=== PATIENT | male | born 1970 | race Caucasian/White ===

== ENCOUNTER → 2017-04-19 11:32 | Outpatient (CLI) | payer BC, SELFPAY ==
[2017-04-19 15:46] LABS: Absolute Lymphocyte Count 2.45 X10^3/ul (0.83-4.51); Absolute Neutrophil Count 5.6 X10^3/uL (2.0-7.7); Basophil# 0.04 X10^3/uL; Basophil% 0.5 % (0-1); Eosinophil# 0.09 X10^3/uL; Lymphocyte # 2.45 X10^3/ul (4.0); Lymphocyte % 27.9 % (19-41); Mean Corp Hgb Conc 34.1 g/gl (32-36); Mean Corpuscular Hgb 30.7 pg (27.0-32.0); Mean Platelet Vol. 10.9 fl (6.2-12.0); Monocyte# 0.54 X10^3/uL; Monocyte% 6.2 % (0-10); Neutrophil # 5.63 X10^3/uL (2.7-7.7); Neutrophil % 64.1 % (47-70); POSITIVE COUNT NO; POSITIVE DIFFERENTIAL NO; POSITIVE MORPHOLOGY NO; Platelet Count 252 K/mm3 (150-450); RBC Distribution Width CV 13.1 % (11.6-14.6); RBC Distribution Width SD 42.6 fl (35.1-43.9); Red Blood Count 4.89 M/mm3 (4.6-6.2); White Blood Count 8.8 K/mm3 (4.4-11.0)
[2017-04-19 16:12] LABS: Hemoglobin A1c 5.5 % (4.2-6.3)
[2017-04-19 16:13] LABS: BUN 14 mg/dL (7-18); Glucose 99 mg/dL (70-110)
[2017-04-19 16:14] LABS: ALB/GLOB Ratio 1.1 RATIO (0.9-2.4); AST(SGOT) 17 U/L (15-37); Alanine Aminotransfer ALT/SGPT 36 U/L (16-61); Albumin, Serum 3.7 g/dL (3.2-5.0); Alkaline Phosphatase 90 U/L (45-117); Anion Gap 10 (5-15); BUN/Creat Ratio 19.9 RATIO (10-20); Calcium,Total 8.5 mg/dL (8.5-10.1); Chloride 105 mmol/L (98-107); Cholesterol 172 mg/dL (200); EST Glomerular Filtration Rate 127 mL/min (>60); Est Glom Filt Rate - Afr Amer 154 mL/min (>60); Globulin 3.4 g/dL (2.2-4.2); High Density Lipoprotein 46 mg/dL; Protein, Total 7.1 g/dL (6.4-8.2); Sodium Level 139 mmol/L (136-145); Thyroid Stim Hormone (TSH) 0.76 uIU/mL (0.358-3.74); Triglycerides 76 mg/dL; Very Low Density Lipoprotein 15 mg/dL (5-40)
== END ==
PROVIDERS: Family Provider Family Medicine; PCP Family Medicine; Visit Provider Family Medicine
DX: Z80.51 Family history of malignant neoplasm of kidney (principal)
CPT/HCPCS: 36415; 80053; 80061; 83036; 84443; 85025

== ENCOUNTER 2017-08-14 13:11 | Emergency (ER) | payer BC, SELFPAY ==
[2017-08-14 13:14] VITALS: BP 134/76; PULSE 76; RESP 20; TEMP 36.9; O2SAT 98; BMI 40.6
--- NOTE | 2017-08-14 13:21 | EKG12_ITS ---
Test Reason : REPEAT Blood Pressure : / mmHG Vent. Rate : 061 BPM Atrial Rate : 061 BPM P-R Int : 154 ms QRS Dur : 104 ms QT Int : 438 ms P-R-T Axes : 034 -40 -02 degrees QTc Int : 440 ms Normal sinus rhythm Left axis deviation Abnormal ECG Confirmed by LOPEZ GOMEZ ([id number]), multimedia editor SEE FRIEDMAN ([id number]) on 08/27/2017 5:58:34 PM Referred By: KELSEY Confirmed By:LOPEZ GOMEZ
--- NOTE | 2017-08-14 13:21 | RAD_ITS ---
STUDY: X-RAY CHEST REASON FOR EXAM: Male, 46 years old. Chest pain. TECHNIQUE: Single AP portable view of the chest. COMPARISON: None. FINDINGS: EKG electrodes are seen. The lungs are clear and expanded. There is no demonstrated pleural abnormality. Normal size heart. Normal mediastinum and osvaldo. Normal visualized pulmonary arteries. Normal visualized aortic arch and descending thoracic aorta. Normal visualized thoracic spine. Normal visualized ribs, clavicles, and shoulders. There is no demonstrated abnormality of the visualized soft tissue structures of the upper abdomen. RAD/Chest 1 View (Portable) IMPRESSION: Normal x-ray examination of the chest. Electronically Signed: Bharat Mcbride MD at 14:26 EDT Tel [phone], Service support ,
[2017-08-14 13:36] LABS: Absolute Lymphocyte Count 2.88 X10^3/ul (0.83-4.51); Absolute Neutrophil Count 11.2 X10^3/uL (2.0-7.7); Basophil# 0.05 X10^3/uL; Basophil% 0.3 % (0-1); Eosinophil# 0.06 X10^3/uL; Eosinophils% 0.4 % (0-5); Hematocrit 41.4 % (40-54); Hemoglobin 14.2 g/dl (13.0-16.5); Lymphocyte # 2.88 X10^3/ul (4.0); Lymphocyte % 19.6 % (19-41); Mean Corp Hgb Conc 34.3 g/gl (32-36); Mean Corpuscular Hgb 30.3 pg (27.0-32.0); Mean Corpuscular Volume 88.5 fL (80-94); Mean Platelet Vol. 10.1 fl (6.2-12.0); Monocyte# 0.46 X10^3/uL; Monocyte% 3.1 % (0-10); Neutrophil # 11.23 X10^3/uL (2.7-7.7); Neutrophil % 76.3 % (47-70); Platelet Count 237 K/mm3 (150-450); RBC Distribution Width CV 13.1 % (11.6-14.6); RBC Distribution Width SD 41.9 fl (35.1-43.9); Red Blood Count 4.68 M/mm3 (4.6-6.2); White Blood Count 14.7 K/mm3 (4.4-11.0)
[2017-08-14 13:37] LABS: POSITIVE COUNT NO; POSITIVE DIFFERENTIAL NO; POSITIVE MORPHOLOGY NO
[2017-08-14 13:53] LABS: Anion Gap 9 (5-15); BUN 14 mg/dL (7-18); BUN/Creat Ratio 16.4 RATIO (10-20); Calcium,Total 8.2 mg/dL (8.5-10.1); Chloride 107 mmol/L (98-107); Creatinine, Serum 0.85 mg/dL (0.70-1.30); EST Glomerular Filtration Rate 102 mL/min (>60); Est Glom Filt Rate - Afr Amer 123 mL/min (>60); Estimated Creatinine Clearance 106.28 ml/min; Glucose 146 mg/dL (74-106); Potassium 3.5 mmol/L (3.5-5.1); Sodium Level 140 mmol/L (136-145)
[2017-08-14 14:27] VITALS: BP 121/84; PULSE 84; RESP 18; O2SAT 95
[2017-08-14] MEDS: Ondansetron 4 MG/2 ML Vial IV (14:39)
[2017-08-14] MEDS: 0.9% Normal Saline 1,000 ML 150 ML IV (14:39)
[2017-08-14] MEDS: Morphine 4 MG/ML Syringe IV (14:39)
[2017-08-14 14:51] LABS: Bedside Glucose 96 mg/dL (70-110)
[2017-08-14 15:09] VITALS: BP 125/80; PULSE 66; RESP 18; O2SAT 95
--- NOTE | 2017-08-14 15:55 | ED.DCSUM_ITS ---
- ER Visit Summary Date of Service: 08/14/17 Chief Complaint: Chest pain History of Present Illness: The patient is a 46 M who states he became very upset and angry this morning around 10 AM. He developed intermittent chest aching times several minutes. He denies any chest pain currently. He is complaining of a throbbing headache. Past history significant for hypertension. Patient has states he has undergone stress test in the past without difficulty. He has had no recent change in activity tolerance. Physical Examination: Vital signs are unremarkable. Patient sitting upright in bed no acute distress. Head and neck examination is normal. Heart is regular rate and rhythm. Lung sounds are clear. No chest wall tenderness is noted. Abdomen is soft nontender. Lower extremity examination reveals no significant calf tenderness or edema. Test Results: Portable chest x-ray is unremarkable. EKG is sinus at 79 with no sign of acute ischemia. CBC was a white count of 14.7 with normal differential. Chemistry studies are unremarkable. Troponin is less than 0.015. Emergency Department Course and Treatment: Patient had already taken aspirin. He was given morphine, Zofran, and IV fluids. I did repeat troponin and EKG at 3 hours. Repeat EKG continues to show no sign of acute ischemia. Repeat troponin is less than 0.015. Patient clinically states he feels improved. He will be discharged home with his . Treatment Plan: [] Disposition: Discharge Impression: Atypical chest pain This note was generated with [employer] dictation software. It may contain incorrect words, spelling, and punctuation that were not noted in review of the chart prior to signing ED Disposition - Plan for ED Patient: Chief Complaint: Chest Pain Referrals: Rivera Forbes DO [Primary Care Provider] -
--- NOTE | 2017-08-14 16:00 | EKG12_ITS ---
Test Reason : CP Blood Pressure : / mmHG Vent. Rate : 079 BPM Atrial Rate : 079 BPM P-R Int : 148 ms QRS Dur : 104 ms QT Int : 390 ms P-R-T Axes : 040 -29 -09 degrees QTc Int : 447 ms Normal sinus rhythm Normal ECG Confirmed by LOPEZ GOMEZ ([id number]), editorial specialist SEE FRIEDMAN ([id number]) on 08/27/2017 5:59:01 PM Referred By: KELSEY/DISHA Confirmed By:LOPEZ GOMEZ
[2017-08-14 16:30] VITALS: BP 131/81; PULSE 88; RESP 16; O2SAT 95
--- NOTE | 2017-08-14 16:49 | ED.DEP ---
ED Disposition - Plan for ED Patient: Disposition: Home or Assisted Living Chief Complaint: Chest Pain Instructions: ED Chest Pain NonCardiac Referrals: Rivera Forbes DO [Primary Care Provider] - 1-2 Weeks
[2017-08-14 17:01] VITALS: BP 141/97; PULSE 83; RESP 16; O2SAT 98
== END 2017-08-14 18:09 | disposition home or self-care (01) ==
PROVIDERS: Emergency Provider Emergency Medicine; Family Provider Family Medicine; PCP Family Medicine
DX: R07.89 Other chest pain (principal); I10 Essential (primary) hypertension; Z87.442 Personal history of urinary calculi; Z72.0 Tobacco use; Z79.82 Long term (current) use of aspirin; Z79.899 Other long term (current) drug therapy
CPT/HCPCS: 71045; 80048; 82962; 84484; 85025; 93005; 96361; 96374; 96375; 99284; J7030; A4216; J2405

== ENCOUNTER → 2017-09-27 09:17 | Outpatient (CLI) | payer BC, SELFPAY ==
[2017-09-27 12:20] LABS: Absolute Lymphocyte Count 2.88 X10^3/ul (0.83-4.51); Absolute Neutrophil Count 6.7 X10^3/uL (2.0-7.7); Basophil# 0.05 X10^3/uL; Basophil% 0.5 % (0-1); Eosinophil# 0.16 X10^3/uL; Eosinophils% 1.5 % (0-5); Hematocrit 43.8 % (40-54); Hemoglobin 14.7 g/dl (13.0-16.5); Lymphocyte # 2.88 X10^3/ul (4.0); Lymphocyte % 27.3 % (19-41); Mean Corp Hgb Conc 33.6 g/gl (32-36); Mean Corpuscular Hgb 30.3 pg (27.0-32.0); Mean Corpuscular Volume 90.3 fL (80-94); Mean Platelet Vol. 10.7 fl (6.2-12.0); Monocyte# 0.72 X10^3/uL; Monocyte% 6.8 % (0-10); Neutrophil # 6.72 X10^3/uL (2.7-7.7); Neutrophil % 63.6 % (47-70); Platelet Count 274 K/mm3 (150-450); RBC Distribution Width CV 13.4 % (11.6-14.6); Red Blood Count 4.85 M/mm3 (4.6-6.2); White Blood Count 10.6 K/mm3 (4.4-11.0)
[2017-09-27 12:29] LABS: POSITIVE COUNT NO; POSITIVE DIFFERENTIAL NO; POSITIVE MORPHOLOGY NO
[2017-09-27 12:35] LABS: CRP 4.66 mg/L (0.0-3.0)
== END ==
PROVIDERS: Family Provider Family Medicine; PCP Family Medicine; Visit Provider Family Medicine
DX: R59.0 Localized enlarged lymph nodes (principal)
CPT/HCPCS: 36415; 85025; 86140

== ENCOUNTER → 2017-11-07 09:43 | Outpatient (CLI) | payer BC, SELFPAY | PROVIDERS: Family Provider Family Medicine; PCP Family Medicine; Visit Provider Family Medicine | DX: R59.0 Localized enlarged lymph nodes (principal); R22.1 Localized swelling, mass and lump, neck | CPT/HCPCS: 76536 ==

== ENCOUNTER → 2018-01-30 08:55 | Outpatient (CLI) | payer BC, SELFPAY ==
--- NOTE | 2018-01-30 09:00 | BI_ITS ---
MAMMOGRAPHY - BILATERAL DIAGNOSTIC REASON FOR EXAM: Male, 47 years old. Left lateral breast swelling. PERTINENT HISTORY: Personal history of breast cancer. TECHNIQUE: Digital bilateral breast justyn (3D mammographic acquisition) in the CC and MLO projections. 2-D mediolateral oblique (MLO) and craniocaudad (CC) views of both breasts were obtained. CAD: Full Field Digital Mammography with Computer Added Detection was performed. COMPARISON: None. Baseline examination. FINDINGS: Breast Composition: The breasts are almost entirely fatty. There are no dominant masses or suspicious calcifications. The left breast is larger than the right breast. Small benign-appearing bilateral axillary lymph nodes. No other significant abnormalities are identified. BI/DIAG MAMM W/CAD, BILAT IMPRESSION: Negative diagnostic mammogram. With the patient's history of the lateral left breast swelling, correlation with ultrasound is recommended. ASSESSMENT CATEGORY: BIRADS Category 0: Incomplete. Need additional imaging evaluation. A letter regarding these results will be sent to the patient by the facility within 30 days. Approximately 10% of breast cancers are not detected by mammography. A normal mammogram should not delay biopsy of a clinically suspicious abnormality. Electronically Signed: Bharat Mcbride MD at 10:22 EST Tel [phone], Service support ,
--- NOTE | 2018-01-30 09:00 | US_ITS ---
STUDY: ULTRASOUND BREAST - LEFT REASON FOR EXAM: Male, 47 years old. Palpable lump left breast. TECHNIQUE: Axial and longitudinal images of the LEFT breast were performed with a high resolution ultrasound transducer. COMPARISON: Comparison is made with prior mammogram done earlier today. FINDINGS: LEFT Breast: No solid or cystic mass lesion is seen. Incidental note is made of a 7 mm x 7 mm x 2 mm benign appearing lymph node. US/Breast Limited Unilateral IMPRESSION: No mass lesion is seen. Incidental note is made of a 7 mm x 7 mm x 2 mm lymph node. ASSESSMENT CATEGORY: BIRADS Category 2: Benign. A letter regarding these results will be sent to the patient by the facility within 30 days. Electronically Signed: Bharat Mcbride MD at 10:58 EST Tel [phone], Service support ,
== END ==
PROVIDERS: Family Provider Family Medicine; PCP Family Medicine; Referring Provider Family Medicine; Visit Provider Family Medicine
DX: N63.20 Unspecified lump in the left breast, unspecified quadrant (principal)
CPT/HCPCS: 76642; 77062; 77066; G0279

== ENCOUNTER 2018-12-02 17:23 | Observation (INO) | payer BC, SELFPAY ==
[2018-12-02 17:26] VITALS: BP 132/88; PULSE 91; RESP 16; TEMP 36.2; O2SAT 97; BMI 44.7
--- NOTE | 2018-12-02 18:01 | EKG12_ITS ---
Test Reason : CP Blood Pressure : / mmHG Vent. Rate : 072 BPM Atrial Rate : 072 BPM P-R Int : 156 ms QRS Dur : 092 ms QT Int : 398 ms P-R-T Axes : 038 -43 021 degrees QTc Int : 435 ms Normal sinus rhythm Left axis deviation Poor R- Wave Progression Abnormal ECG Confirmed by ZAK RAMÍREZ, NAVID ([id number]), editorial manager AMERICA FRAZIER ([id number]) on 12/04/2018 2:04:36 PM Referred By: FRANCIS/DISHA Confirmed By:NAVID CRESPO MD
--- NOTE | 2018-12-02 18:17 | RAD_ITS ---
STUDY: X-RAY CHEST REASON FOR EXAM: Male, 48 years old. Chest pain TECHNIQUE: Single AP portable view of the chest. COMPARISON: 08/14/2017 FINDINGS: The lungs are clear and expanded. There is no demonstrated pleural abnormality. Normal size heart. Normal mediastinum and osvaldo. Normal visualized pulmonary arteries. Normal visualized aortic arch and descending thoracic aorta. Normal visualized thoracic spine. Normal visualized ribs, clavicles, and shoulders. There is no demonstrated abnormality of the visualized soft tissue structures of the upper abdomen. RAD/Chest 1 View (Portable) IMPRESSION: Normal x-ray examination of the chest. Electronically Signed: Reji Noel MD at 18:26 EDT Tel , Service support ,
[2018-12-02 18:48] LABS: Absolute Lymphocyte Count 3.72 X10^3/uL (0.83-4.51); Absolute Neutrophil Count 10.3 X10^3/uL (2.0-7.7); Basophil# 0.09 X10^3/uL; Basophil% 0.6 % (0-1); Eosinophil# 0.14 X10^3/uL; Eosinophils% 0.9 % (0-5); Hematocrit 44.7 % (40-54); Hemoglobin 15.3 g/dL (13.0-16.5); Lymphocyte # 3.72 X10^3/ul (4.0); Lymphocyte % 24.5 % (19-41); Mean Corp Hgb Conc 34.2 g/dL (32-36); Mean Corpuscular Hgb 30.5 pg (27.0-32.0); Mean Corpuscular Volume 89.2 fL (80-94); Monocyte# 0.79 X10^3/uL; Monocyte% 5.2 % (0-10); NRBC Flagged by Analyzer 0 % (0-5); Neutrophil # 10.32 X10^3/uL (2.7-7.7); Platelet Count 296 K/mm3 (150-450); RBC Distribution Width CV 12.4 % (11.6-14.6); RBC Distribution Width SD 40.5 fl (35.1-43.9); Red Blood Count 5.01 M/mm3 (4.6-6.2); White Blood Count 15.2 K/mm3 (4.4-11.0)
[2018-12-02 19:04] LABS: Anion Gap 6 (5-15); BUN 13 mg/dL (7-18); BUN/Creat Ratio 15.8 RATIO (10-20); Calcium,Total 8.7 mg/dL (8.5-10.1); Chloride 106 mmol/L (98-107); Creatinine, Serum 0.82 mg/dL (0.70-1.30); EST Glomerular Filtration Rate 105 mL/min (>60); Est Glom Filt Rate - Afr Amer 127 mL/min (>60); Estimated Creatinine Clearance 107.77 ml/min; Glucose 93 mg/dL (74-106); Potassium 3.7 mmol/L (3.5-5.1); Sodium Level 138 mmol/L (136-145)
[2018-12-02 19:42] VITALS: O2SAT 98
--- NOTE | 2018-12-02 19:44 | ED.DCSUM_ITS ---
History of Present Illness Chief Complaint: Chest Pain Informant: Patient Onset: Days - Several days. Onset November 27 Context: Sudden Onset Timing: Intermittent Quality: Pushing pulling pressure Location: Midsternum with radiation to left upper extremity Current Severity: - - Tammy Maximum Severity: Moderate Worsened by: Exertion Relieved by: Rest Associated Symptoms: Possibly diaphoresis and mild shortness of breath Narrative: Vision is a middle-age male who is a former smoker. He quit May of this year. He has history of hypertension. Paternal grandparents both had strokes. His father has high blood pressure. No known history of ID. He does report symptoms of claudication he reports that sitting in the waiting room caused him to be relaxed and his tightness went away. He denies hematemesis, hematochezia. He denies any URI symptoms. Prior similar symptoms: No Recent Illness/Hospitalization: No - Past Medical History (1) History of hypertension Status: Acute Past Medical History - Allergies and Home Meds Allergies/Adverse Reactions: Allergies No Known Allergies Allergy (Verified 12/02/18 17:26) Primary Care Physician: Rivera Forbes DO [Primary Care Provider] - Prior records reviewed: Yes Surgical History: no surgical history Lives: Spouse/ Significant Other Smoking Status: Former smoker Alcohol: None Drugs: None Review of Systems General: Denies: Chills, Fever, Sweats Eyes: Denies: Visual changes - bilaterally, Diplopia ENT: Denies: Rhinorrhea, Sore throat Cardiovascular: Reports: Chest pain. Denies: Palpitations, Heart racing Respiratory: Reports: Dyspnea. Denies: Dyspnea on exertion, Orthopnea, Paroxysmal nocturnal dyspnea Gastrointestinal: Denies: Abdominal pain, Nausea, Vomiting, Diarrhea, Melena, Hematochezia Genitourinary: Denies: Dysuria, Hematuria, Frequency Musculoskeletal: Reports: Extremity Pain - Symptoms of claudication. Denies: Myalgias, Arthralgias, Neck pain, Back pain, Swelling Skin: Denies: Rash, Wounds Neurological: Denies: Headache, Weakness, Numbness Allergy: Denies: Uticaria, Swelling of the mouth Physical Exam Vital Signs/Narrative: Vital Signs Temp Pulse Resp BP Pulse Ox 12/02/18 19:42 98 12/02/18 17:26 97.1 F L 91 16 132/88 H 97 Inital Vital Signs reviewed: Yes General: Well nourished, Well developed, No Acute Distress Head: Normocephalic, Atraumatic Eyes: Perrl, EOMI ENT: Moist mucous membranes, No rhinorrhea Neck: Supple, Nontender Cardiovascular: Regular rate, Regular rhythm, No murmurs, Normal S1, Normal S2 Respiratory: No distress, CTA bilaterally, Chest nontender Abdomen: Soft, Nontender, Nondistended, Normal bowel sounds Back: Nontender, Normal Inspection Extremities: Nontender, No edema Skin: Normal color, No rash Neurological: Alert, Oriented x3, Cranial nerves II-XII grossly intact, Normal Strength, Normal Sensation Psychological: Normal affect, Normal Mood Diagnostic/Tx/Re-eval Chest X-Ray - ED: 1 View, Read by ED Physician, Read by Radiologist, Normal, Heart, Lungs, Mediastinum, Bony Structures, No Acute Disease Impressions Chest X-Ray 12/02/18 18:17 IMPRESSION: Normal x-ray examination of the chest. Electronically Signed: Reji Noel MD at 18:26 EDT Tel , Service support , 12/02/18 18:17 Chest 1 View (Portable) [RAD] Stat Laboratory Results 12/02/18 12/02/18 18:30 18:30 WBC 15.2 H RBC 5.01 Hgb 15.3 Hct 44.7 MCV 89.2 MCH 30.5 MCHC 34.2 RDW Std Deviation 40.5 RDW Coeff of Nitish 12.4 Plt Count 296 MPV 10.0 Immature Gran % (Auto) 0.800 Neut % (Auto) 68.0 Lymph % (Auto) 24.5 [place] % (Auto) 5.2 Eos % (Auto) 0.9 Baso % (Auto) 0.6 Absolute Neuts (auto) 10.3 H Absolute Lymphs (auto) 3.72 Nucleated RBC % 0 Sodium 138 Potassium 3.7 Chloride 106 Carbon Dioxide 26.0 Anion Gap 6 BUN 13 Creatinine 0.82 Estim Creat Clear Calc 107.77 Est GFR (MDRD) Af Amer 127 Est GFR (MDRD) Non-Af 105 BUN/Creatinine Ratio 15.8 Glucose 93 Calcium 8.7 Troponin I < 0.015 Laboratory results are unremarkable. Patient history of classic exertional angina. Executive Director Of Marketing was paged as well as hospitalist for observation and probable cardiac catheterization in the morning. - Medical Decision Making Patient presents with classic exertional angina. Concern for coronary disease. Need to also consider noncardiac etiology i.e. GI, pulmonary. Since patient to ok 1 baby aspirin prior to arrival he received 3 baby aspirins in the department. Since he is now pain-free with rest Nitropaste was applied. Executive Director Of Marketing was contacted to discuss anticoagulation and the hospitalist was paged for assignment to PCU. Discussed with hospitalist. Patient will receive dose of Lovenox. Dr. Sandor Melara to see patient. ED Disposition - Plan for ED Patient: Disposition: Acute Care Hospital [facility] Diagnosis: Chest pain, exertional Referrals: Rivera Forbes DO [Primary Care Provider] -
--- NOTE | 2018-12-02 19:52 | HP.PCM_ITS ---
Problem List (1) Chest pain, exertional Status: Acute (2) History of hypertension Status: Chronic (3) Chest pain Status: Acute Qualifiers: Chest pain type: unspecified Qualified Code(s): R07.9 - Chest pain, unspecified History of Present Illness Date of Admission: 12/02/18 Chief Complaint: chest pain The patient is a 48 year old M with a significant history of hypertension; morbid obesity; former tobacco abuse who presented with a one-week history of episodic chest pain. 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 Patient thinks that the chest pain might be due to his movement as above. His chest pain radiates to his back. His chest pain is episodic. He rated at 5-6 on a scale of 1-10. He describes chest pain as dull and aching. His chest pain is exacerbated by movement and improves with rest. Associated with symptoms is vertigo. Also he reports diaphoresis. However, he is always diaphoretic from his work. Past Medical History Past Medical History (Chronic Problems): Chronic Problems (Last Reviewed 12/02/18 @ 20:34 by Ko Hunter MD) History of hypertension (Chronic) Medical History: Medical History (Last Reviewed 12/03/18 @ 07:21 by Ko Hunter MD) Back pain M54.9 Chest pain R07.9 Difficulty balancing R29.818 Fatigue R53.83 Limb weakness R29.898 Shoulder pain M25.519 HTN (hypertension) I10 Allergies No Known Allergies Allergy (Verified 12/02/18 17:26) Home Medications: Ambulatory Orders Medication Instructions Recorded Lisinopril/Hydrochlorothiazide 1 tab PO DAILY 05/04/13 [Zestoretic 12.5 Tablet] Venlafaxine HCl [Venlafaxine HCl 75 mg PO DAILY 12/02/18 ER] aspirin 81 mg tablet,delayed 81 mg PO DAILY 12/02/18 release Surgical History: Surgical History (Last Reviewed 12/03/18 @ 04:01 by Ko Hunter MD) Hernia K46.9 History of gastric surgery Z98.890 History of tonsillectomy Z90.89 Lives: Spouse/ Significant Other Smoking Status: Former smoker Alcohol: None Drugs: None - *Family History Maternal Family History: Family History (Last Reviewed 12/03/18 @ 07:22 by Ko Hunter MD) Other CVA (cerebral vascular accident) Cancer Diabetes Heart disease Review of Systems Constitutional: Denies: Chills, Fever, Weight Change HEENT: Denies: Head Aches, Sinus Congestion, Sinus Drainage Cardiovascular: Reports: Chest Pain. Denies: Palpitations Respiratory: Denies: Cough, Shortness of breath at rest, Sputum production Gastrointestinal: Denies: Abdominal Pain, Nausea, Vomiting Genitourinary: Denies: Dysuria Musculoskeletal: Denies: Joint Pain, Joint Tenderness Skin: Denies: Rash, Wounds Neurological: Denies: Numbness, Tingling, Focal weakness Psychiatric: Denies: Anxiety, Depression, Homicidal Ideations, Suicidal Ideations Hematologic/ Lymphatic: Denies: Easy Bruising, Easy Bleeding VTE Information - Inpt Only VTE Present on Admission: No VTE Mechan Device Prophylaxis: None VTE Pharm Prophylaxis ordered?: No Reason prophylaxis not ordered:: Treatment Not Indicated - Patient received therapeutic dose of Lovenox at the emergency department. Patient Problems: Active and Suspected Problems (Last Reviewed 12/02/18 @ 20:34 by Ko Hunter MD) Chest pain, exertional (Acute) - Physical Exam General: Alert, Oriented x3, Cooperative HEENT: Atraumatic, PERRLA, EOMI, Normocephalic Neck: Supple, No JVD, Negative Carotid Bruits Lungs: Clear to auscultation, Normal air movement Cardiovascular: Regular rate, No murmurs Abdomen: Bowel Sounds Present, Soft, Non Tender Extremities: No edema, Capillary Refill Less than 3 Seconds Skin: No rashes, No breakdown Musculoskeletal: No Tenderness to Palpation of Joints or Extremities Neurological: Cranial nerves II-XII grossly intact Psych/Mental Status: Normal Affect, Appropriate Vital Signs Temp Pulse Resp BP Pulse Ox 97.1 F L 91 16 132/88 H 98 12/02/18 17:26 12/02/18 17:26 12/02/18 17:26 12/02/18 17:26 12/02/18 19:42 Oxygen Delivery Method Room Air Weight: 137.438 kg Body Mass Index (BMI) 44.7 Finger Stick Blood Glucose 96 Laboratory Tests Past 24 Hrs 12/02/18 12/02/18 18:30 18:30 WBC 15.2 H RBC 5.01 Hgb 15.3 Hct 44.7 MCV 89.2 MCH 30.5 MCHC 34.2 RDW Std Deviation 40.5 RDW Coeff of Nitish 12.4 Plt Count 296 MPV 10.0 Immature Gran % (Auto) 0.800 Neut % (Auto) 68.0 Lymph % (Auto) 24.5 [place] % (Auto) 5.2 Eos % (Auto) 0.9 Baso % (Auto) 0.6 Absolute Neuts (auto) 10.3 H Absolute Lymphs (auto) 3.72 Nucleated RBC % 0 Sodium 138 Potassium 3.7 Chloride 106 Carbon Dioxide 26.0 Anion Gap 6 BUN 13 Creatinine 0.82 Estim Creat Clear Calc 107.77 Est GFR (MDRD) Af Amer 127 Est GFR (MDRD) Non-Af 105 BUN/Creatinine Ratio 15.8 Glucose 93 Calcium 8.7 Troponin I < 0.015 Assessment/Plan All Active Problems (Last Reviewed 12/02/18 @ 20:34 by Ko Hunter MD) Chest pain, exertional (Acute) Chest pain (Acute) The patient is a 48 year old M with a significant history of hypertension; morbid obesity; former tobacco abuse who presented with a one-week history of episodic chest pain. Chest pain Admit to a monitored bed on PCU CXR independently reviewed confirms no acute cardiopulmonary process. EKG independently reviewed confirms axis deviation without any ST or T wave abnormalities. Patient took a baby aspirin at home and was also given 3 baby aspirin at the emergency department. Patient was given nitroglycerin paste in the emergency department. Sublingual nitroglycerin as needed Per load out worker recommendation therapeutic dose of Lovenox was given at the emergency department. Per cardiology's recommendation loading dose Plavix and a daily dose Plavix was ordered. Continue ASA 81 mg p.o. daily Morphine as needed for pain We will check lipid panel. Serial cardiac enzymes Stat EKG as needed for chest pain Cardiac was consulted. Discussed the case with cardiology. Patient may have a heart cath in a.m. Hypertension On presentation his blood pressure was not within goal Lisinopril and hydrochlorthiazide continued Trend blood pressure and adjust blood pressure medication DVT prophylaxis Not indicated since patient received therapeutic dose of Lovenox in the emergency department. Code Visit OBSV E&M: 92284 Initial observation care L3
[2018-12-02 19:55] VITALS: BP 124/88; PULSE 72
[2018-12-02] MEDS: Nitroglycerin Oint 1 INCH PACKET TRANSDERM. (19:55)
[2018-12-02] MEDS: Aspirin 81 MG TAB.CHEW 243 MG PO (19:55)
[2018-12-02] MEDS: Enoxaparin 120 MG/0.8 ML Syringe SC (20:10)
--- NOTE | 2018-12-02 20:10 | PCM.CONS.C ---
Reason for Consult Date of Consultation: 12/02/18 Reason for Consultation: Chest pain History of Present Illness: The patient is a 48 year old M with no previous cardiac history but a history of hypertension under treatment who says that over the last few days he has experienced chest discomfort described as a heaviness which appears with exertion and goes away with rest. He rested the whole weekend and was free of chest discomfort and today when he started exerting himself again at work he experienced this chest heaviness. It was associated with diaphoresis mild dizziness and mild nausea. He has had no kristyn syncopal episodes. He has had no palpitations. He has not had this discomfort in the past. He underwent stress testing over 8 years ago and no evidence of ischemia was noted. He presented to the emergency room today was given aspirin and nitroglycerin with improvement in the discomfort. Cardiology was called for evaluation. He was seen in the emergency room by me. [] Past Medical History Allergies/Adverse Reactions: Allergies No Known Allergies Allergy (Verified 12/02/18 17:26) Home Medications: Ambulatory Orders Medication Instructions Recorded Lisinopril/Hydrochlorothiazide 1 tab PO DAILY 05/04/13 [Zestoretic 10/12.5 Tablet] Venlafaxine HCl 75 mg PO DAILY 08/14/17 aspirin 81 mg tablet,delayed 81 mg PO DAILY 12/02/18 release Surgical History: no surgical history Lives: Spouse/ Significant Other Smoking Status: Former smoker Alcohol: None Drugs: None Review of Systems - Review of Systems General: Denies: Fever, Night Sweats, Fatigue HEENT: Denies: Vision Change Cardiovascular: Reports: Chest Discomfort with Exertion. Denies: Chest Discomfort, Shortness of Breath, Orthopnea, PND, Peripheral Edema, Palpitations, Lightheadedness, Dizziness, Near Syncope, Syncope Respiratory: Denies: Cough, Sputum Production, Hemoptysis Gastrointestinal: Denies: Hematemesis, Hematochezia, Melena Genitourinary: Denies: Dysuria, Hematuria Muscoloskeletal: Denies: Myalgias Skin: Denies: Rash Neurological: Denies: Dizziness Psychiatric: Denies: Anxiety Hematologic/ Lymphatic: Denies: Anemia Subjectve: Pleasant gentleman in no apparent distress Objective: Vital Signs Temp Pulse Resp BP Pulse Ox 97.1 F L 72 16 124/88 H 98 12/02/18 17:26 12/02/18 19:55 12/02/18 17:26 12/02/18 19:55 12/02/18 19:42 Oxygen Delivery Method Room Air Weight: 303 lb Body Mass Index (BMI) 44.7 Finger Stick Blood Glucose 96 General: Awake, Alert, Oriented x 3 HEENT: PERRL, EOMI, Sclera Non Icteric Neck: Supple, Good ROM, No Lymph Node Enlargement Lungs: Clear to auscultation Cardiovascular: Regular Rhythm, Normal S1, Normal S2, No Murmurs, No Rubs, No Gallops Vascular: No Carotid Bruits, Normal Femoral Pulses, Normal Radial Pulses, Normal Dorsalis Pedal Pulse, Normal Posterior Tibial Pulses Abdomen: Bowel Sounds Present, Soft, Non Tender, No HSM, No Organomegaly Extremities: No Cyanosis, No Clubbing, No edema Musculoskeletal: No Erythema Skin: No Rashes Lymphatic: No Lymph Node Enlargement Neurological: No Focal Motor or Sensory Deficit Psych/Mental Status: Appropriate 12/02/18 18:30: WBC 15.2 H, RBC 5.01, Hgb 15.3, Hct 44.7, MCV 89.2, MCH 30.5, MCHC 34.2, Plt Count 296, MPV 10.0, Immature Gran % (Auto) 0.800, Neut % (Auto) 68.0, Lymph % (Auto) 24.5, [place] % (Auto) 5.2, Eos % (Auto) 0.9, Baso % (Auto) 0.6, Absolute Neuts (auto) 10.3 H, Nucleated RBC % 0 12/02/18 18:30: Sodium 138, Potassium 3.7, Chloride 106, Carbon Dioxide 26.0, Anion Gap 6, BUN 13, Creatinine 0.82, Est GFR (MDRD) Af Amer 127, Est GFR (MDRD) Non-Af 105, BUN/Creatinine Ratio 15.8, Glucose 93, Calcium 8.7, Troponin I < 0.015 Rhythm: EKG: ECHO: Stress Test: Cardiac Cath: PCI: CT Surgery: Holter monitor: EPS: PPM: CXR: Chest CT Scan: Assessment/Plan 1. Chest pain. Patient presents with chest discomfort with symptoms suggestive of new onset angina. He does have risk factors of hypertension and obesity and previous tobacco use. I did discuss with him about triaging him to stress testing versus cardiac catheterization. He says that he has had a stress test in the past and does not want to undergo another one. We will therefore proceed with a cardiac catheterization. The risk benefits and alternatives have been explained to him he understands and agrees to proceed. Depending on the findings further recommendations will be made. He will be treated with aspirin Loaded with clopidogrel Lovenox x1 For cardiac catheterization in a.m. Above discussed with patient and hospitalist and both in agreement. Thank you for allowing me to participate in the care of your patient. Please don't hesitate to call if any issues arise
--- NOTE | 2018-12-02 20:33 | EKG12_ITS ---
Test Reason : AM Blood Pressure : / mmHG Vent. Rate : 055 BPM Atrial Rate : 055 BPM P-R Int : 172 ms QRS Dur : 102 ms QT Int : 452 ms P-R-T Axes : 042 -36 003 degrees QTc Int : 432 ms Sinus bradycardia Left axis deviation Poor R- wave Progression Abnormal ECG Confirmed by ZAK RAMÍREZ, NAVID ([id number]), editorial manager AMERICA FRAZIER ([id number]) on 12/04/2018 2:23:52 PM Referred By: Confirmed By:NAVID CRESPO MD
[2018-12-02 20:36] VITALS: BMI 44.1; BMI 44.7
[2018-12-02 20:44] VITALS: BP 130/73; PULSE 67; PULSE 69; RESP 14; TEMP 37.1; O2SAT 99
[2018-12-02] MEDS: Clopidogrel Bisulfate 300 MG Tablet PO (22:05)
[2018-12-02 23:09] VITALS: PULSE 69
[2018-12-03] VITALS (14 sets, daily range): BP systolic 99–128; BP diastolic 51–85; PULSE 58–93; RESP 14–16; TEMP 36.4–36.7; O2SAT 96–98
[2018-12-03] MEDS: Acetaminophen 325 MG Tablet 650 MG PO ×2 (03:04→09:51)
[2018-12-03 05:50] LABS: Absolute Lymphocyte Count 3.68 X10^3/uL (0.83-4.51); Absolute Neutrophil Count 7.7 X10^3/uL (2.0-7.7); Basophil# 0.08 X10^3/uL; Basophil% 0.6 % (0-1); Eosinophil# 0.17 X10^3/uL; Eosinophils% 1.3 % (0-5); Hematocrit 40.6 % (40-54); Hemoglobin 13.7 g/dL (13.0-16.5); Lymphocyte # 3.68 X10^3/ul (4.0); Lymphocyte % 29.2 % (19-41); Mean Corp Hgb Conc 33.7 g/dL (32-36); Mean Corpuscular Volume 88.8 fL (80-94); Mean Platelet Vol. 10.1 fl (6.2-12.0); Monocyte# 0.85 X10^3/uL; Monocyte% 6.7 % (0-10); NRBC Flagged by Analyzer 0 % (0-5); Neutrophil # 7.69 X10^3/uL (2.7-7.7); Neutrophil % 61.2 % (47-70); Platelet Count 262 K/mm3 (150-450); RBC Distribution Width CV 12.5 % (11.6-14.6); RBC Distribution Width SD 40.9 fl (35.1-43.9); Red Blood Count 4.57 M/mm3 (4.6-6.2); White Blood Count 12.6 K/mm3 (4.4-11.0)
--- NOTE | 2018-12-03 05:55 | EKG12_ITS ---
Test Reason : CP ADMIT Blood Pressure : / mmHG Vent. Rate : 068 BPM Atrial Rate : 068 BPM P-R Int : 160 ms QRS Dur : 098 ms QT Int : 410 ms P-R-T Axes : 044 -39 015 degrees QTc Int : 435 ms Normal sinus rhythm Left axis deviation Poor R- Wave Progression Abnormal ECG Confirmed by ZAK RAMÍREZ, NAVID ([id number]), telegraph editor AMERICA FRAZIER ([id number]) on 12/04/2018 2:26:59 PM Referred By: DR LAGUNAS Confirmed By:NAVID CRESPO MD
[2018-12-03 06:08] LABS: Cholesterol 189 mg/dL (200); High Density Lipoprotein 43 mg/dL; Triglycerides 199 mg/dL; Very Low Density Lipoprotein 40 mg/dL (5-40)
[2018-12-03] MEDS: Aspirin E.C. 81 MG Tablet PO (06:09)
[2018-12-03] MEDS: 0.9% NaCl Peripheral Flush Adult/Peds IV (06:09)
[2018-12-03] MEDS: Clopidogrel Bisulfate 75 MG Tablet PO (06:09)
[2018-12-03] MEDS: 0.9% Normal Saline 1,000 ML 15 ML IV (06:12)
[2018-12-03 06:17] LABS: Prothrombin Time (Protime)PT. 13.1 SECONDS (11.7-14.9)
--- NOTE | 2018-12-03 08:52 | PCM.PN.CARD ---
Subjectve: Patient seen and evaluated. Objective: Vital Signs Temp Pulse Resp BP Pulse Ox 98.1 F 58 L 16 121/79 H 97 12/03/18 08:45 12/03/18 08:45 12/03/18 08:45 12/03/18 08:45 12/03/18 08:45 Oxygen Delivery Method Room Air Weight: 299 lb 6.204 oz Body Mass Index (BMI) 44.1 Finger Stick Blood Glucose 96 Intake and Output for Last 24 Hours 12/01/18 12/02/18 12/03/18 23:59 23:59 23:59 Intake Total 480 / 480 Balance 480 / 480 General: Awake, Alert, Oriented x 3 HEENT: PERRL, EOMI, Sclera Non Icteric Neck: Supple, Good ROM, No Lymph Node Enlargement Lungs: Clear to auscultation Cardiovascular: Regular Rhythm, Normal S1, Normal S2, No Murmurs, No Rubs, No Gallops Vascular: No Carotid Bruits, Normal Femoral Pulses, Normal Radial Pulses, Normal Dorsalis Pedal Pulse, Normal Posterior Tibial Pulses Abdomen: Bowel Sounds Present, Soft, Non Tender, No HSM, No Organomegaly Extremities: No Cyanosis, No Clubbing, No edema Musculoskeletal: No Erythema Skin: No Rashes Lymphatic: No Lymph Node Enlargement Neurological: No Focal Motor or Sensory Deficit 12/02/18 18:30: WBC 15.2 H, RBC 5.01, Hgb 15.3, Hct 44.7, MCV 89.2, MCH 30.5, MCHC 34.2, Plt Count 296, MPV 10.0, Immature Gran % (Auto) 0.800, Neut % (Auto) 68.0, Lymph % (Auto) 24.5, Hamilton % (Auto) 5.2, Eos % (Auto) 0.9, Baso % (Auto) 0.6, Absolute Neuts (auto) 10.3 H, Nucleated RBC % 0 12/02/18 18:30: Sodium 138, Potassium 3.7, Chloride 106, Carbon Dioxide 26.0, Anion Gap 6, BUN 13, Creatinine 0.82, Est GFR (MDRD) Af Amer 127, Est GFR (MDRD) Non-Af 105, BUN/Creatinine Ratio 15.8, Glucose 93, Calcium 8.7, Troponin I < 0.015 12/02/18 21:55: Troponin I < 0.015 12/03/18 00:27: Troponin I < 0.015 12/03/18 05:15: WBC 12.6 H, RBC 4.57 L, Hgb 13.7, Hct 40.6, MCV 88.8, MCH 30.0, MCHC 33.7, Plt Count 262, MPV 10.1, Immature Gran % (Auto) 1.000 H, Neut % (Auto) 61.2, Lymph % (Auto) 29.2, Hamilton % (Auto) 6.7, Eos % (Auto) 1.3, Baso % (Auto) 0.6, Absolute Neuts (auto) 7.7, Nucleated RBC % 0 12/03/18 05:15: PT 13.1, INR 1.0 12/03/18 05:15: Triglycerides 199, Cholesterol 189, LDL Cholesterol 106, VLDL Cholesterol 40, HDL Cholesterol 43 Rhythm: EKG: ECHO: Stress Test: Cardiac Cath: PCI: CT Surgery: Holter monitor: EPS: PPM: CXR: Chest CT Scan: Medical Necessity - Tobacco Use Smoking Status: Former smoker Assessment/Plan 1. Chest pain. Patient presents with chest discomfort with symptoms suggestive of new onset angina. He does have risk factors of hypertension and obesity and previous tobacco use. I did discuss with him about triaging him to stress testing versus cardiac catheterization. His cardiac catheterization today demonstrated normal coronary arteries with an anterior takeoff of his right coronary artery. No significant stenosis was noted preserved ejection fraction was noted. I would recommend a search for alternate causes for his chest discomfort. He can be discharged for outpatient follow-up with his primary care physician. Thank you for allowing me to participate in the care of your patient. Please don't hesitate to call if any issues arise
[2018-12-03] MEDS: hydroCHLOROthiazide 12.5mg 12.5 MG PO (09:52)
[2018-12-03] MEDS: Venlafaxine XR 75 MG Capsule PO (09:52)
[2018-12-03] MEDS: Lisinopril 10 MG Tablet PO (09:52)
--- NOTE | 2018-12-03 10:13 | DCINST_ITS ---
- Discharge Diagnoses Current Active Problems: Current Active and Chronic Problems (Last Reviewed 12/03/18 @ 07:21 by Ko Hunter MD) History of hypertension (Chronic) Chest pain, exertional (Acute) You will use the following diet at home:: Cardiac Your food should be the consistency of: Regular Discharge Activity: Return to Normal Activity, May not drive while taking narcotic pain medications. Return to work on:: 12/06/18 Weight Bearing Status: Full weight bearing Call your doctor if you observe: Fever of 101 or Higher, Shortness of breath, Dizziness, Fainting spells, Increased palpitations (irregular heartbeat), Uncontrolled pain Allergies/Adverse Reactions: Allergies No Known Allergies Allergy (Verified 12/02/18 20:49) Medications to take at Discharge Lisinopril/Hydrochlorothiazide [Zestoretic 12/28.5 Tablet] 1 tab PO DAILY 05/04/13 Venlafaxine HCl [Venlafaxine HCl ER] 75 mg PO DAILY 12/02/18 aspirin 81 mg tablet,delayed release 81 mg PO DAILY 12/02/18 Oxycodone [Oxyir] 5 mg PO Q12H PRN PRN 3 Days #6 tab 12/03/18 The following prescriptions were given: Oxycodone [Oxyir] 5 mg PO Q12H PRN PRN 3 Days #6 tab PRN Reason: Severe pain Prescription Printed Primary Care Physician: Rivera Forbes DO [Primary Care Provider] - Please follow up with your Primary Care Physician in: 1 week as scheduled. Test Results: Test results from this visit will be discussed in further detail at your follow- up appointment, if applicable.
--- NOTE | 2018-12-03 10:33 | PHA.DC.MC ---
Pharmacy Service has performed discharge medication reconciliation and counseling for this patient. The patient's discharge medication list was reviewed for discrepancies and discrepancies were resolved. The patient was counseled on the following discharge medications and changes in medications for homegoing were reviewed. 1. OXYCODONE 5MT PO Q12H PRN SEVERE PAIN The Reason for Use, instructions for use, and potential side effects were reviewed for all new medications. The patient's questions regarding all of their medications were answered. The patient was able to verbally demonstrate an understanding of their discharge medications. Home Medications Lisinopril/Hydrochlorothiazide [Zestoretic 10/12.5 Tablet] 1 tab PO DAILY 05/04/13 Venlafaxine HCl [Venlafaxine HCl ER] 75 mg PO DAILY 12/02/18 aspirin 81 mg tablet,delayed release 81 mg PO DAILY 12/02/18 Oxycodone [Oxyir] 5 mg PO Q12H PRN PRN 3 Days #6 tab 12/03/18
--- NOTE | 2018-12-03 12:41 | PCM.DC.SUM ---
Discharge Date and Diagnosis - Problem List Patient Problems: Active and Suspected Problems (Last Updated 12/03/18 @ 10:22 by Andrew Parry MD) Chest pain, exertional (Acute) Date of Admission: 12/02/18 Date of Discharge: 12/03/18 - Primary Discharge Diagnosis Active and Suspected Problems (Last Updated 12/03/18 @ 10:22 by Andrew Parry MD) Chest pain, attributed to musculoskeletal pain, ACS ruled out. - Secondary Discharge Diagnosis Chronic Problems (Last Updated 12/03/18 @ 10:22 by Andrew Parry MD) History of hypertension (Chronic) Hospital Course and Treatment Imaging Results: Clinical Impression(s) from Imaging Studies Chest X-Ray 12/02/18 18:17 IMPRESSION: Normal x-ray examination of the chest. Electronically Signed: Reji Noel MD at 18:26 EDT Tel , Service support , Dr. Melara, cardiology. Operations: None Procedures: Cardiac catheterization, EKG Summary of Care Provided: Patient seen and examined on the day of discharge and appeared to be stable to be discharged home. He underwent cardiac catheterization that revealed normal coronary arteries. He continued to complain of intermittent chest pain mainly with movement. He denied shortness of breath, palpitation, dizziness, lightheadedness, sweating, nausea or vomiting. His vital signs are stable. The patient is a 48 year old M admitted because of chest pain for evaluation. His symptoms were suggestive of new onset angina pectoris. His risk factors for obesity, hypertension and smoking. His EKG revealed normal sinus rhythm without evidence of acute ischemic changes. Troponin was negative x3. Routine blood work was remarkable for leukocytosis which was reactive and improved, otherwise normal. Lipid profile was normal. Chest x-ray showed no acute findings. Cardiology consulted and patient underwent cardiac catheterization that revealed normal coronary arteries without evidence of CAD. Patient symptoms attributed to musculoskeletal pain. ACS ruled out. Patient discharged home in a stable medical condition, resumed back on his previous home medications without any changes, he was given prescription for OxyIR every 12 hours as needed, recommended to use Tylenol and Aleve for mild to moderate pain and OxyIR only for severe pain, recommended follow-up with PCP in 1 week. Patient Problems: Active and Suspected Problems (Last Updated 12/03/18 @ 10:22 by Andrew Parry MD) Chest pain, exertional (Acute) - Physical Exam General: Alert, Oriented x3, Cooperative, No apparent distress HEENT: Atraumatic, PERRLA, EOMI, Normocephalic Oral: Moist Mucosa, No Gingival or Mucosal Lesions/ Ulcerations Neck: Supple, No JVD, Negative Carotid Bruits, Trachea Midline, Thyroid Normal Size and Texture Lungs: Clear to auscultation, Normal air movement, No rhonchi, No wheeze, No rales Cardiovascular: Regular rate, Regular Rhythm, Normal S1, Normal S2, PMI Normal Abdomen: Bowel Sounds Present, Soft, Non Tender, Non-Distended, No Hepato-splenomegaly, Obese Extremities: No clubbing, No cyanosis, No edema Skin: No rashes, No breakdown Lymphatic: No Cervical, Supraclavicular, or Inguinal Adenopathy Neurological: Cranial nerves II-XII grossly intact, Neuro grossly intact Psych/Mental Status: Normal Affect, Appropriate Vital Signs Temp Pulse Resp BP Pulse Ox 98.1 F 93 16 105/58 L 97 12/03/18 08:45 12/03/18 11:45 12/03/18 11:45 12/03/18 11:45 12/03/18 11:45 Oxygen Delivery Method Room Air Weight: 299 lb 6.204 oz Body Mass Index (BMI) 44.1 Finger Stick Blood Glucose 96 Intake and Output for Last 24 Hours 12/01/18 12/02/18 12/03/18 23:59 23:59 23:59 Intake Total 805.75 / 805.75 Balance 805.75 / 805.75 Laboratory Tests Past 24 Hrs 12/02/18 12/02/18 12/02/18 18:30 18:30 21:55 WBC 15.2 H RBC 5.01 Hgb 15.3 Hct 44.7 MCV 89.2 MCH 30.5 MCHC 34.2 RDW Std Deviation 40.5 RDW Coeff of Nitish 12.4 Plt Count 296 MPV 10.0 Immature Gran % (Auto) 0.800 Neut % (Auto) 68.0 Lymph % (Auto) 24.5 Banner % (Auto) 5.2 Eos % (Auto) 0.9 Baso % (Auto) 0.6 Absolute Neuts (auto) 10.3 H Absolute Lymphs (auto) 3.72 Nucleated RBC % 0 PT INR Sodium 138 Potassium 3.7 Chloride 106 Carbon Dioxide 26.0 Anion Gap 6 BUN 13 Creatinine 0.82 Estim Creat Clear Calc 107.77 Est GFR (MDRD) Af Amer 127 Est GFR (MDRD) Non-Af 105 BUN/Creatinine Ratio 15.8 Glucose 93 Calcium 8.7 Troponin I < 0.015 < 0.015 Triglycerides Cholesterol LDL Cholesterol VLDL Cholesterol HDL Cholesterol 12/03/18 12/03/18 12/03/18 00:27 05:15 05:15 WBC 12.6 H RBC 4.57 L Hgb 13.7 Hct 40.6 MCV 88.8 MCH 30.0 MCHC 33.7 RDW Std Deviation 40.9 RDW Coeff of Nitish 12.5 Plt Count 262 MPV 10.1 Immature Gran % (Auto) 1.000 H Neut % (Auto) 61.2 Lymph % (Auto) 29.2 Banner % (Auto) 6.7 Eos % (Auto) 1.3 Baso % (Auto) 0.6 Absolute Neuts (auto) 7.7 Absolute Lymphs (auto) 3.68 Nucleated RBC % 0 PT 13.1 INR 1.0 Sodium Potassium Chloride Carbon Dioxide Anion Gap BUN Creatinine Estim Creat Clear Calc Est GFR (MDRD) Af Amer Est GFR (MDRD) Non-Af BUN/Creatinine Ratio Glucose Calcium Troponin I < 0.015 Triglycerides Cholesterol LDL Cholesterol VLDL Cholesterol HDL Cholesterol 12/03/18 05:15 WBC RBC Hgb Hct MCV MCH MCHC RDW Std Deviation RDW Coeff of Nitish Plt Count MPV Immature Gran % (Auto) Neut % (Auto) Lymph % (Auto) Banner % (Auto) Eos % (Auto) Baso % (Auto) Absolute Neuts (auto) Absolute Lymphs (auto) Nucleated RBC % PT INR Sodium Potassium Chloride Carbon Dioxide Anion Gap BUN Creatinine Estim Creat Clear Calc Est GFR (MDRD) Af Amer Est GFR (MDRD) Non-Af BUN/Creatinine Ratio Glucose Calcium Troponin I Triglycerides 199 Cholesterol 189 LDL Cholesterol 106 VLDL Cholesterol 40 HDL Cholesterol 43 Discharge Activity: Return to Normal Activity, May not drive while taking narcotic pain medications. Return to work on:: 12/06/18 Weight Bearing Status: Full weight bearing Call your doctor if you observe: Fever of 101 or Higher, Shortness of breath, Dizziness, Fainting spells, Increased palpitations (irregular heartbeat), Uncontrolled pain Home Medications: Medications to take at Discharge Lisinopril/Hydrochlorothiazide [Zestoretic 12/28.5 Tablet] 1 tab PO DAILY 05/04/13 Venlafaxine HCl [Venlafaxine HCl ER] 75 mg PO DAILY 12/02/18 aspirin 81 mg tablet,delayed release 81 mg PO DAILY 12/02/18 Oxycodone [Oxyir] 5 mg PO Q12H PRN PRN 3 Days #6 tab 12/03/18 Following Prescrptions Were Given to Patient: Oxycodone [Oxyir] 5 mg PO Q12H PRN PRN 3 Days #6 tab PRN Reason: Severe pain Prescription Printed Primary Care Physician: Rivera Forbes DO [Primary Care Provider] - Please follow up with your Primary Care Physician in: 1 week as scheduled. Disposition: Home Minutes spent on discharge:: 25 Patient Condition:: Stable Medical Necessity - Tobacco Use Smoking Status: Former smoker Meaningful Use Info Meaningful Use Diagnoses (Choose all that apply): None applicable Code Visit OBSV E&M: 58361 Observation care discharge
--- NOTE | 2018-12-12 09:58 | CL.D_ITS ---
Patient Name: ARI DE ANDA Study Date: 12/03/2018 Performing: Sandor Melara MD Ht: 69 inches 175 cm : 1970 Wt: 300.2 lbs 136 kg Age: 48 Gender: male BSA: 2.45 PROCEDURE(S) PERFORMED QV62-MBH/COR/LV CLINICAL PROFILE AND INDICATIONS Indications: Suspected CAD Heart Failure: None Stress/Imaging Stress/Image Study Performed: No CAD Presentations: Unstable angina. CONCLUSIONS Normal coronary arteries Normal LV size, wall motion,and systolic function Anterior takeoff of the right coronary artery close to the left main coronary ostium. RECOMMENDATIONS Medical therapy DESCRIPTION OF PROCEDURE The patient arrived to the procedure lab. The risks and benefits of the procedure as well as a full d escription of our services here and current unavailability of surgical backup were fully explained to the patient and/or their significant other prior to the catheterization. The Timeout was completed, verifying the correct patient and procedure. The patient's procedural site was prepped and draped in the usual fashion. Local anesthetic was given subcutaneously to right groin region with Lidocaine 2%. Using a modified Seldinger technique, arterial access was obtained via the right femoral artery, a 5 Fr sheath was inserted. Left Coronary Artery selective angiography was performed in multiple views u sing a 5 Fr. JL 5 catheter. Left Ventriculography was performed in COWAN projection using a 5 Fr. [place] catheter. LV to AO pullback pressures were then recorded. Right Coronary Artery selective angiogra phy was then performed in multiple views using a 5 Fr. AL 1 catheter.Contrast was injected through the sheath and the Right Iliac and Femoral artery were assessed for possible closure device.T he arterial sheath was pulled and a Mynx closure device was deployed for hemostasis CORONARY ANGIOGRAPHY DOMINANCE: Right Dominant LEFT HEART ASSESSMENT Left Ventricular Ejection Fraction: by LV Gram 60 % Normal LV wall motion Normal Left Ventricular systolic function Normal Left Ventricular systolic function LEFT MAIN: Angiographically normal LEFT ANTERIOR DESCENDING ARTERY: Angiographically normal CIRCUMFLEX ARTERY: Angiographically normal RIGHT CORONARY ARTERY: Angiographically normal COMPLICATIONS No Complications PROCEDURE MEDICATIONS Versed 1 mg IV Versed 1 mg IV Oxygen: 2 L/min via nasal cannula SUMMARY OF HEMODYNAMIC DATA Time AIR REST ECG 07:16:25 AO 108/77 (91) SA 07:36:52 LV 114/15, 26 07:59:54 LV 114/13, 22 08:00:01 LV 117/5, 32 08:00:41 LV 118/6, 26 08:00:47 LVp 118/8, 19 08:02:39 AOp 114/81 (98) 08:02:44 Signed By Sandor Melara MD On 12/03/2018 08:58:28 Sandor Melara MD
== END 2018-12-03 13:40 | disposition home or self-care (01) ==
LOC: ED 19:49 → PCU 20:19
PROVIDERS: Admitting Provider Hospitalist; Emergency Provider Emergency Medicine; Family Provider Family Medicine; PCP Family Medicine; Visit Provider Hospitalist
DX: R07.89 Other chest pain (principal); I10 Essential (primary) hypertension; Z79.899 Other long term (current) drug therapy; Z79.82 Long term (current) use of aspirin; R06.02 Shortness of breath; Z87.891 Personal history of nicotine dependence; E66.01 Morbid (severe) obesity due to excess calories; Z68.41 Body mass index [BMI] 40.0-44.9, adult; Z71.3 Dietary counseling and surveillance; R42 Dizziness and giddiness
CPT/HCPCS: 36415; 71045; 80048; 80061; 84484; 85025; 85610; 93005; 93458; 96372; 99152; 99153; 99218; 99284; C1760; J7030; Q9967; A4216; C1769; G0378

== ENCOUNTER → 2019-01-20 12:13 | Outpatient (CLI) | payer BC, SELFPAY ==
[2018-12-02 20:36] VITALS: BMI 44.1
--- NOTE | 2019-01-20 12:16 | RAD_ITS ---
STUDY: X-RAY - CERVICAL SPINE REASON FOR EXAM: Male, 48 years old. left median nerve, question radiculopathy TECHNIQUE: 6 view(s) of the cervical spine were obtained. COMPARISON: None FINDINGS: Normal anterior atlantoaxial articulation. Normal odontoid process. Normal cervical lordosis. Normal vertebral bodies. Minimal anterior endplate spurring is present at several levels. Normal disc space heights. Normal visualized intervertebral neuroforamina. The soft tissue structures are unremarkable. There is no demonstrated fracture of the cervical spine. RAD/Cerv Spine 4 or 5 Views IMPRESSION: Minimal anterior endplate spurring otherwise unremarkable study. Electronically Signed: Greg Avelar MD at 13:37 EST , Service support ,
== END ==
LOC: MTRAD 12:15
PROVIDERS: Family Provider Family Medicine; PCP Family Medicine; Referring Provider Family Medicine; Visit Provider Family Medicine
DX: G56.12 Other lesions of median nerve, left upper limb (principal)
CPT/HCPCS: 72050

== ENCOUNTER 2019-02-18 08:10 | Outpatient (RCR) | payer BC, SELFPAY ==
[2018-12-02 20:36] VITALS: BMI 44.1
--- NOTE | 2019-02-18 12:26 | HP.PTEVAL_ITS ---
Patient's Visit Information ARI DE ANDA is a 48 year old M referred to Physical Therapy by Rivera Forbes DO with a diagnosis of LBP. Date of Evaluation: 02/18/19 Physical Therapist: Alexus Pryor PT, Cert MDT - Visit Plan Frequency: 2-3x /Week Duration: 4-6 Weeks Plan: AQUATIC THERAPY FOR PAIN RELEIF, POSTURE CORRECTION/STRENGTHENING, INSTRUCTION IN APPROPRIATE BODY MECHANICS AND ACTIVITY MODIFICATIONS. DLS STARTING WITH A NEUTRAL SPINE PROGRESSING ROM TOLERATED. COLTEN LE ROM, STRETCHING AND STRENGTHENING. HEP INSTRUCTION. - Subjective Findings: Work/Leisure: INVENTORY CONTROL COORDINATOR. OFF WORK FOR ABOUT A WEEK FOR BACK PAIN BUT BACK TO WORK NOW SINCE FEB 01 2019. AT THIS JOB FOR 20 YEARS - STANDING. WORKS TWO JOBS SO WORKS ABOUT 13 HOURS A DAY 5 DAYS A WEEK. Disability: NO. Present symptoms: RIGHT LOW BACK PAIN. DENIES LE SX'S. Present since: APPROX Jan THIS EPISODE. Pain Scale: WORST 9/10, LEAST 2/10. Currently: 2/10. Commenced as a result of: PUTTING SOCK ON IN THE MORNING. Symptoms at onset: POP AND RIGHT LBP. IT NEVER WENT DOWN MY LEG. Worse: PROLONGED WALKING, PROLONGED SITTING, LIFTING, BENDING, TWISTING. Better: LYING DOWN, MEDROL DOSE PACK, IBUPROFEN. Disturbed sleep: YES. Previous history/Previous treatment: NO PHYSICAL THERAPY. H/O LOW BACK PROBLEMS FOR ABOUT 20 YEARS. H/O OF [facility] ABOUT 2 TIMES A YEAR NEEDED OVER THE YEARS. GOES TO [facility] FOR ABOUT A MONTH OR SO. NO CIERA. NO BACK SURGERY. MEDICATIONS AND REST USUALLY HELP WITH [facility] BUT THIS TIME IT IS STICKING AROUND. WAS FEELING STIFF IN LOW BACK SO STARTING GOING TO [facility] IN AUGUST. [facility] WAS ALSO SEEING HIM FOR UE TINGLING WHICH IS STILL GOING ON. WENT TO [facility] APPROX AUGUST, SEPTEMBER, OCT, NOV. HAS NOT BEEN BACK TO [facility] SINCE FELT THE POP IN HIS LOW BACK APPROX JAN 23 2019. MEDROL DOSE PACK THIS EPISODE SEEMED TO HELP. OTHER RECENT MEDS NOT HELPING. Coughing/sneezing/straining: POSITIVE. Gait: DECREASED CADANCE, RIGHT LE LIMP AND DISTANCE LIMITED NOW. Difficulty initiating urinatin: YES - DR. FORBES AWARE. Accidents: HARD FALL ON ICE 5-6 YEARS AGO AND MUSCULOSKELETAL PAIN EVER SINCE. Unexplained weight loss: NO. Imaging: LOW BACK X-RAY AND THORACIC X-RAYS 2017 - A LOT OF ARTHRITIS. PMH: DEPRESSION, ANXIETY, STOMACH HERNIA - UNREPAIRED, COLTEN GROIN HERNIAS, HTN, CARDIAC CATH NOV 2018 - NO TREATMENT NEEDED. BENIGN LEFT CHEST TUMOR - APPT' WITH DR. VILLARREAL TOMORROW. - Objective Sitting/Standing Posture: POOR. FH, RS. NO RELEVENT LATERAL LUMBAR SHIFT. Active Correction of posture: WORSE. Other Observations: INDEP GAIT INTO PT WITH NO GROSS DEVIATIONS NOTED. Motor deficit: COLTEN LE'S 5/5 WITH MMT'ING EXCEPT HIPS 4/5. Sensory deficit: NO. ROM deficit: MILD HS AND GASTROC TIGHTNESS. Reflexes: NT. Dural Signs: MILDLY POSITIVE RIGHT LE. Lumbar mvmt loss: flex - MOD - CENTRAL AND RIGHT LBP. ext - VERN - RIGHT LBP. R SG - MIN - NE. L SG - MIN - NE. Core strength: POOR. Palpation: NO ACUTE THORACIC OR LUMBAR TENDERNESS - Goals Goal 1:: DECREASE C/O LOW BACK PAIN Goal Time Frame: 4-6 Weeks Goal 2:: IMPROVE LIFTING, WALKING, SITTING, STANDING, SLEEP, SOCIAL LIFE, TRAVEL AND HOMEMAKING FUNCTION. Goal Time Frame: 4-6 Weeks Goal 3:: INSTRUCT IN PROPHYLAXIS - Rehabilitation Potential Rehabilitation Potential: Fair - Anticipated Interventions Patient/Client Instruction: Educate patient on: Condition, Plan of Care, Risk Factors, Benefits of Fitness Program For the Purpose of:: To improve self management Therapeutic Exercise to Include: Strength training, Body mechanics, Postural training, Flexibilty training, In an aquatic setting, Dynamic Lumbar Stabilization For the Purpose of:: To decrease pain, To increase ROM, To improve muscle performance and motor function, To increase tolerance to activity/condition/position, To improve ability of physical actions for home/co mmunity/work/leisure Thank you for the opportunity to evaluate your patient. For Medicare and Medicare HMO plans, please review the plan of care and approve it. It will need to be FAXED BACK to us at [phone] for Medicare purposes. For Medicare only, by signing this I certify the plan of care. Please let me know if there are questions or concerns regarding this plan of care. Physician Signature: Date:
--- NOTE | 2019-03-24 10:22 | HP.PT.NRP ---
HP - Discharge Summary (1) - Patient Information ARI DE ANDA was seen in my office for initial evaluation on 02/18/19. The following Plan of Care was established for this patient: Initial Frequency: 2-3x /Week Initial Duration: 4-6 Weeks - Anticipated Interventions Patient/Client Instruction: Educate patient on: Condition, Plan of Care, Risk Factors, Benefits of Fitness Program For the Purpose of:: To improve self management Therapeutic Exercise to Include: Strength training, Body mechanics, Postural training, Flexibilty training, In an aquatic setting, Dynamic Lumbar Stabilization For the Purpose of:: To decrease pain, To increase ROM, To improve muscle performance and motor function, To increase tolerance to activity/condition/position, To improve ability of physical actions for home/community/work/leisure This patient was last seen in our office 02/18/19. Pertinent comments regarding their Physical therapy will appear below: This patient has not returned to Physical Therapy and is appropriate to return to MD for further follow-up as needed. At this point I will be discontinuing this patient from physical therapy. I would be happy to see this patient again in the future if found appropriate by the physician. Thank you! Alexus Pryor, PT, Cert MDT
== END 2019-02-18 19:00 | disposition home or self-care (01) ==
LOC: PT 08:10
PROVIDERS: Family Provider Family Medicine; PCP Family Medicine; Referring Provider Family Medicine; Visit Provider Family Medicine
DX: M54.5 Low back pain (principal); M51.36 Other intervertebral disc degeneration, lumbar region
CPT/HCPCS: 97162

== ENCOUNTER → 2019-02-26 09:05 | Outpatient (CLI) | payer BC, SELFPAY ==
[2019-02-19 09:53] VITALS: BMI 44.1
[2019-02-24 12:58] VITALS: BMI 44.1
--- NOTE | 2019-02-26 09:08 | US_ITS ---
STUDY: ULTRASOUND BREAST - LEFT REASON FOR EXAM: Male, 48 years old. Palpable lump left breast. TECHNIQUE: Axial and longitudinal images of the LEFT breast were performed with a high resolution ultrasound transducer. # OF IMAGES: 62 COMPARISON: Comparison is made with prior mammogram done earlier in the day. FINDINGS: LEFT Breast: The palpable abnormality corresponds to a large lipoma. No significant increased vascularity is seen. US/Breast Limited Unilateral IMPRESSION: The palpable and about the corresponds to a large lipoma. ASSESSMENT CATEGORY: BIRADS Category 2: Benign. A letter regarding these results will be sent to the patient by the facility within 30 days. Electronically Signed: Bharat Mcbride, at 15:50 EST , Service support ,
--- NOTE | 2019-02-26 09:08 | BI_ITS ---
MAMMOGRAPHY - UNILATERAL DIAGNOSTIC: LEFT BREAST REASON FOR EXAM: Male, 48 years old. Left breast mass. PERTINENT HISTORY: Non-contributory. TECHNIQUE: Digital unilateral breast justyn (3D mammographic acquisition) in the CC and MLO projections. 2-D mediolateral oblique (MLO) and craniocaudad (CC) views of both breasts were obtained. CAD: Full Field Digital Mammography with Computer Added Detection was performed. COMPARISON: Comparison is made with prior mammogram dated January 30, 2018. FINDINGS: Breast Composition: The breasts are almost entirely fatty. There are no dominant masses or suspicious calcifications. Stable benign-appearing left axillary lymph nodes. No other significant abnormalities are identified. BI/DIAG MAMM W/CAD, UNILAT IMPRESSION: Stable unilateral diagnostic mammogram. With the patient''s history of a palpable abnormality in the left breast, correlation with ultrasound is recommended. ASSESSMENT CATEGORY: BIRADS Category 0: Incomplete. Need additional imaging evaluation. A letter regarding these results will be sent to the patient by the facility within 30 days. Approximately 10% of breast cancers are not detected by mammography. A normal mammogram should not delay biopsy of a clinically suspicious abnormality. Electronically Signed: Bharat Mcbride, at 11:27 EST , Service support ,
== END ==
LOC: OPBI 09:05
PROVIDERS: Family Provider Family Medicine; PCP Family Medicine; Referring Provider Surgery; Visit Provider Surgery
DX: N63.20 Unspecified lump in the left breast, unspecified quadrant (principal)
CPT/HCPCS: 76642; 77065

== ENCOUNTER 2019-04-14 07:53 | Day surgery (SDC) | payer BC, SELFPAY ==
[2019-02-24 12:58] VITALS: BMI 44.1
--- NOTE | 2019-04-14 00:38 | PCM.HP.BLA ---
History and Physical Date of Admission: 04/14/19 HISTORY OF PRESENT ILLNESS 48 year old man presents with a painful mass left axilla/lateral breast that cause discomfort when bumped and when he raises his left shoulder. He denies trauma. He denies fever. He denies nay nipple discharge. He had a mammogram and ultrasound done on 02/26/19. The mammogram showed no dominant masses or suspicious calcifications. Stable benign-appearing left axillary lymph nodes. The ultrasound showed a palpable abnormality corresponds to a large lipoma. He presents at this time for further evaluation and treatment. PAST MEDICAL HISTORY Essential (primary) hypertension Anxiety and depression Arthritis Breast lump Hearing problem Inguinal hernia, bilateral Kidney stones Thoracic stomach hernia Back pain Difficulty balancing PAST SURGICAL HISTORY left heart catheterization gastric surgery tonsillectomy ALLERGIES No Known Allergies MEDICATIONS Lisinopril/Hydrochlorothiazide [Zestoretic 12/28.5 Tablet] Venlafaxine aspirin cyclobenzaprine gabapentin ibuprofen tizanidine FAMILY HISTORY Grandmother - Breast cancer Father - Diabetes, Kidney disease Uncle - Kidney disease Grandfather - CVA (cerebral vascular accident) Grandfather - CVA (cerebral vascular accident) Other - Cancer, Heart disease SOCIAL HISTORY Smoking Status: Former smoker how long ago did patient quit smoking: MAY 2018 alcohol intake: current alcohol intake frequency: a few times a week Alcohol type: beer substance use type: does not use REVIEW OF SYSTEMS General - Denies fever and weight loss. Has fatigue. Eyes - Denies cataracts and glaucoma. ENT - Denies nasal congestion and sore throat. Endocrine - Denies excessive thirst and urination. Has family history of breast cancer. Skin - Denies skin cancer. There is a painful mass left axilla/lateral breast. Musculoskeletal - Has joint pain, joint stiffness, weakness of muscles and joints, back pain. Denies arthritis. Neuro - Denies headaches. Has lightheadedness. Cardiovascular - Has chest pain and fatigue. Denies shortness of breath with exertion. Psych - Denies anxiety. Has depression. Respiratory - Denies chronic cough and shortness of breath. Has sleep apnea. Patient is a former smoker. Gastrointestinal - Denies nausea, vomiting, diarrhea, and constipation. Hematologic - Denies abnormal bruising and bleeding. Genitourinary - Denies hematuria and urinary frequency. Has incontinence. PHYSICAL EXAMINATION General - Alert and Oriented. HEENT - PERRL. EOMI. Throat is clear. Neck - Supple and nontender. No cervical adenopathy. Chest wall - On the left axilla/lateral breast is an area of fibrous thickening that is tender to palpation. Measures about 5 cm. No skin dimpling. No skin retraction. No axillary adenopathy. Lungs - Clear to auscultation. Heart - Regular rate and rhythm. Abdomen - Soft and nondistended. Extremities - FROM. No axillary adenopathy. Radial pulses are palpable. Neuro - CN II-XII grossly intact. Psych - Normal mood and affect. ASSESSMENT 1. 5 cm painful fibrous thickening mass left axilla/lateral breast. 2. Family history of breast cancer. 3. Former smoker. PLAN Mammogram and Ultrasound reviewed. Recommend excision of this painful fibrous thickening mass left axilla/lateral breast and send it to Pathology for analysis to rule out carcinoma. Anticipate a defect large enough to place a drain for 10-14 days postop. Surgery will be done under general anesthesia on an outpatient basis. Patient was informed of the risks and complications of the procedure including alternatives to surgery. These were discussed with the patient personally. Patient voices understanding and wishes to proceed. Some of the risks and complications were included in a form from the [employer].
[2019-04-14 08:10] VITALS: BP 133/78; PULSE 72; RESP 16; TEMP 37.2; O2SAT 97; BMI 45.1
[2019-04-14] MEDS: Lactated Ringers 1,000 ML 100 ML IV (08:43)
[2019-04-14] MEDS: Cefazolin 2 GM in 0.9% Normal Saline 100 ML IV (09:44)
--- NOTE | 2019-04-14 09:45 | MASS_PTH ---
PATIENT: ARI DE ANDA [place] [facility] [id number] AGE/SX: 48/M ROOM: RE04/14/[address]: Dr. Sander Mayen MD : 1970 BED: DIS: 04/14/2019 SPEC #: [id number] RECD: 04/14/19 13:25 STATUS: ADAM PATRICK #: [id number] KO: 04/14/19 09:[address]: Sander Mayen DEPT: SURGICAL PATHOLOGY RECD BY: Rehana Blair ENTERED: 04/14/19 14:52 SP TYPE: Mass OTHR DR: Dr. Rivera Forbes, DO Tissues: Left breast, NOS Procedures: Surgery Specimen Level III HEADER OPERATION: Excision painful mass, axilla lateral breast PRE-OP DIAGNOSIS: 5 cm painful fibrous thickening mass left axilla/lateral breast TISSUE SUBMITTED: Fibrous thickening mass left axilla/lateral breast MICROSCOPIC DIAGNOSIS Fibrous thickening mass left axilla/lateral breast, excision: Mature adipose tissue, consistent with lipoma. TACO:sheila 04/16/19 MICROSCOPIC DESCRIPTION Slides are reviewed. GROSS DESCRIPTION Received in fixative is one container labeled with the patient's name and designated fibrous thickening mass left axilla/lateral breast. The specimen consists of a piece of boogie-yellow adipose tissue measuring 9 x 7 x 4 cm. Also present in the container are two variable sized pieces of yellow adipose tissue measuring 4.5 x 4 x 1.5 cm and 3.5 x 1.5 x 1 cm. Sections reveal yellow adipose cut surfaces without area of hemorrhage, necrosis or cystic degeneration. No mass is identified. Produce Inspector sections are submitted in six cassettes as follows: 1 - smaller two pieces, 2-6 - largest piece. / TACO:sheila 04/15/19 TC:1 CPT: 84026
[2019-04-14] MEDS: Mupirocin Ointment 22gm Tube 1 APPLIC (10:39)
--- NOTE | 2019-04-14 10:51 | OP.PCM_ITS ---
Report of Operation Date of Procedure: 04/14/19 Pre-Operative Diagnosis: 1. 5 cm painful fibrous thickening mass left axi lla/lateral breast. 2. Family history of breast cancer. 3. Former smoker. Post-Operative Diagnosis: Same. Surgery/Procedure Performed:: Excision 5 cm painful fibrous soft tissue mass left axilla/lateral breast with 7 cm layered closure. Description of Surgical Findings:: 48 year old man presents with a painful mass left axilla/lateral breast that cause discomfort when bumped and when he raises his left shoulder. He denies trauma. He denies fever. He denies nay nipple discharge. He had a mammogram and ultrasound done on 02/26/19. The mammogram showed no dominant masses or suspicious calcifications. Stable benign-appearing left axillary lymph nodes. The ultrasound showed a palpable abnormality corresponds to a large lipoma. Patient was informed of the risks and complications of the procedure including alternatives to surgery. These were discussed with the patient personally. Patient voices understanding and wishes to proceed. Some of the risks and complications were included in a form from the [employer]. I used Chloe absorbable hemostat. Reference Number - [id number]. Lot Number - [id number]. Expiration - November 14, 2023. family welfare social work professor: None Type of Anesthesia:: General Specimen's removed: Painful soft tissue mass left axilla/lateral breast to Pathology. Drains: Pérez. Estimated Blood Loss (mL): 25 ml. Description of Procedure: Patient was taken to OR in supine position and was placed under general anesthesia. The left axilla and lateral breast area was prepped and draped in the usual fashion. SCD's were placed for DVT prophylaxis. Perioperative antibiotics were given intravenously. Marking was made on the skin overlying the mass. Using xylocaine with epinephrine, the marking was infiltrated. After waiting 5 minutes for the anesthetic to take effect, incision was made through the subcutaneous tissue until the fibrous mass was seen. Sharp dissection was done around the mass down to the lateral edge of the pectoralis muscle. There was no involvement of the lymph nodes. The mass was sent to Pathology for analysis to rule out carcinoma. There was a fair amount of fibrous scar tissue present indicative of the chronic nature of this mass. The wound was irrigated with saline. Hemostasis was obtained with electrocautery. I placed a size 15 Pérez drain through a separate stab incision inferolaterally and secured to the skin with 3-0 Nylon suture. I sprayed Chloe absorbable hemostat into the wound to minimize seroma formation. The wound was closed in a layered fashion with 3- 0 Monocryl interrupted sutures for the deep dermis and subcutaneous tissue. The skin was approximated with 3-0 Prolene simple interrupted sutures. The length of the closure was 7 cm. Antibiotic ointment was applied to the suture line followed by Kerlix gauze and a compression guanaco wrap. Patient tolerated the procedure well and was sent to PACU in satisfactory condition. Patient will be sent home on antibiotics and pain medication. He will keep his left arm elevated during the initial postoperative period. Patient will followup in a week for a wound check and for discussion of the pathology report. The sutures will be removed in 2 weeks. The drain will be removed in 10-14 days. Grafts/Implants Used: None. - Complications None. - Admit VTE Documentation VTE Present on Admission: No VTE Mechan Device Prophylaxis: SCD's VTE Pharm Prophylaxis ordered?: No Code Visit Surgery Charges CPT - 06863 ICD-10 - R22.32, N63.32, R20.8, Z80.3, Z87.891
[2019-04-14 11:02] VITALS: BP 133/78; BP 139/72; PULSE 83; RESP 16; TEMP 37.6; O2SAT 95
--- NOTE | 2019-04-14 11:09 | DCINST_ITS ---
You will use the following diet at home:: No restrictions Discharge Activity: May not drive while taking narcotic pain medications., May Not Shower - until the drain is removed., - - elevate left arm. no heavy lifting. May shower in (days): 14 - after the drain is removed. May resume sexual activity in: No Restrictions Weight Bearing Status: Weight bearing as tolerated Lifting Restrictions: 20 lbs. Keep extremity elevated above heart level: Left Arm Call your doctor if your incision/area has: Continuous Slow Oozing, Sudden Increased Bleeding, Increased Pain/ Swelling, Increased Redness, Foul Smelling Discharge, Swelling at the incision site Call your doctor if you observe: Fever of 101 or Higher, Coldness, Increased Pain, Shortness of breath, Chest pain, Calf discomfort, Uncontrolled pain Suture Line Care: - - after dressing removed in office, apply antibiotic ointment to suture line daily. Change Dressing in (Days):: 4 - will change dressing in office sunday04/18/19. Cleanse incision/area with: - - may get incision wet in the shower after the drain is removed. Drain: Suction - felix drain to bulb suction. empty and record output daily. Allergies/Adverse Reactions: Allergies No Known Allergies Allergy (Verified 04/14/19 08:08) Medications to take at Discharge Lisinopril/Hydrochlorothiazide [Zestoretic 12/28.5 Tablet] 1 tab PO DAILY 05/04/13 Venlafaxine HCl [Venlafaxine HCl ER] 150 mg PO DAILY 12/02/18 cyclobenzaprine 10 mg tablet 10 mg PO .PRN tab 02/19/19 gabapentin 300 mg capsule 300 mg PO .PRN cap 02/19/19 tizanidine 2 mg capsule 2 mg PO .PRN cap 02/19/19 Cefadroxil [Duricef] 500 mg PO BID #30 cap 04/14/19 Docusate Sodium [Colace] 100 mg PO BID #60 cap 04/14/19 Oxycodone HCl/Acetaminophen [Percocet 5/325] 1 tablet PO Q4H PRN PRN 7 Days #40 tablet 04/14/19 proMETHazine tablet [Phenergan tablet] 25 mg PO 4X/DAY PRN PRN #30 tab 04/14/19 The following prescriptions were given: Docusate Sodium [Colace] 100 mg PO BID #60 cap Transmission Status: Pending to [facility] Cefadroxil [Duricef] 500 mg PO BID #30 cap Transmission Status: Pending to [facility] Oxycodone HCl/Acetaminophen [Percocet 5/325] 1 tablet PO Q4H PRN PRN 7 Days #40 tablet PRN Reason: Pain Score 4-5/10 Transmission Status: Sent to [facility] proMETHazine tablet [Phenergan tablet] 25 mg PO 4X/DAY PRN PRN #30 tab PRN Reason: Nausea Transmission Status: Pending to [facility] Primary Care Physician: Rivera Forbes DO [Primary Care Provider] - Test Results: Test results from this visit will be discussed in further detail at your follow- up appointment, if applicable. Please Follow Up With: Sander Mayen MD When: sunday04/18/19. call [phone] for appt. Proposed Discharge Date: 04/14/19
[2019-04-14 11:15] VITALS: BP 130/78; BP 133/78; PULSE 87; RESP 16; O2SAT 93
[2019-04-14 11:30] VITALS: BP 129/77; BP 133/78; PULSE 81; RESP 16; O2SAT 93
[2019-04-14 11:45] VITALS: BP 120/78; BP 133/78; PULSE 83; RESP 16; TEMP 37.2; O2SAT 93
[2019-04-14 13:22] VITALS: BP 133/78; BP 153/81; PULSE 88; RESP 16; TEMP 36.6; O2SAT 98
== END 2019-04-14 13:26 | disposition home or self-care (01) ==
LOC: SDC 07:54 → AC 07:56
PROVIDERS: Family Provider Family Medicine; PCP Family Medicine; Referring Provider Surgery; Visit Provider Surgery
PROC: (CPT 21552; principal; 2019-04-14 09:30)
DX: N63.32 Unspecified lump in axillary tail of the left breast (principal); R22.32 Localized swelling, mass and lump, left upper limb; Z80.3 Family history of malignant neoplasm of breast; Z87.891 Personal history of nicotine dependence; I10 Essential (primary) hypertension; F41.9 Anxiety disorder, unspecified; F32.9 Major depressive disorder, single episode, unspecified; G25.81 Restless legs syndrome; K21.9 Gastro-esophageal reflux disease without esophagitis; M19.90 Unspecified osteoarthritis, unspecified site; Z87.442 Personal history of urinary calculi; Z79.82 Long term (current) use of aspirin; Z79.899 Other long term (current) drug therapy
CPT/HCPCS: 00400; 21552; 88304; 88305; J7120

== ENCOUNTER → 2019-05-14 13:43 | Outpatient (CLI) | payer BC, SELFPAY ==
[2019-02-19 09:53] VITALS: BMI 44.1
[2019-05-02 09:16] VITALS: BMI 45.1
--- NOTE | 2019-05-14 14:35 | NEURO_ITS ---
NCS and/or EMG Patient Report Ordering Doctor: Rivera Forbes DATE OF SERVICE: 05/14/19 Corky Lofton is a 48-year-old male who presents for electrodiagnostic testing of the left upper limb. He reports numbness and pain in the left hand. Electrodiagnostic findings: Left median motor nerve demonstrates prolonged distal latency with normal amplitude and reduced conduction velocity. Left ulnar motor response demonstrates normal distal latency and amplitude with approximately 25% drop in conduction across the elbow. Normal median ulnar F- wave. Prolonged median sensory latency at the wrist. On needle EMG, all muscles tested in the left upper limb as well as left cervical paraspinals showed no evidence of denervation with normal motor unit action potentials. Electrodiagnostic impression: This is an abnormal study in the left upper limb. 1. Electrodiagnostic findings demonstrate left-sided median mononeuropathy, consistent with a moderate left carpal tunnel syndrome. 2. Electrodiagnostic findings demonstrate left-sided ulnar neuropathy, consistent with a mild to moderate left cubital tunnel syndrome 3. No electrodiagnostic evidence is noted for cervical radiculopathy. If there are any further questions, please do not hesitate to contact me.
== END ==
PROVIDERS: Family Provider Family Medicine; PCP Family Medicine; Referring Provider Family Medicine; Visit Provider Family Medicine
DX: G56.12 Other lesions of median nerve, left upper limb (principal)
CPT/HCPCS: 95886; 95909

== ENCOUNTER → 2019-10-20 08:26 | Outpatient (CLI) | payer BC, SELFPAY ==
[2019-10-20 08:25] VITALS: BMI 45.9
--- NOTE | 2019-10-20 08:29 | RAD_ITS ---
STUDY: X-RAY - LEFT KNEE REASON FOR EXAM: Male, 49 years old. KNEE PAIN, NO TRAUMA TECHNIQUE: 4 view(s) of the knee. COMPARISON: None. FINDINGS: Normal visualized distal femur. Normal visualized proximal tibia and fibula. Normal proximal tibiofibular articulation. Normal medial femorotibial compartment. Normal lateral femorotibial compartment. Normal patellofemoral articulation. The soft tissue structures are unremarkable. RAD/Knee 4 or More Views IMPRESSION: Normal x-ray examination of the knee. Electronically Signed: Bharat Mcbride, at 15:39 EDT , Service support ,
== END ==
PROVIDERS: PCP Family Medicine; Referring Provider Orthopaedic Surgery; Visit Provider Orthopaedic Surgery
DX: M25.562 Pain in left knee (principal)
CPT/HCPCS: 73564

== ENCOUNTER → 2019-11-06 17:22 | Outpatient (CLI) | payer BC, SELFPAY ==
[2019-10-20 08:25] VITALS: BMI 45.9
--- NOTE | 2019-11-06 17:25 | MRI_ITS ---
HISTORY: Medial knee pain MRI EXAMINATION OF THELeft KNEE COMPARISON: Radiographs of the left knee on October 20, 2019 TECHNIQUE: Coronal proton density, fat-suppressed T2 and thin section T2 through the anterior cruciate ligaments, sagittal proton density and fat suppressed T2 and axial fat-suppressed T2 # of images including paperwork:204 FINDINGS: Bones: No acute fracture. No significant marrow edema Ligaments and tendons: The anterior and posterior cruciate ligaments are intact The medial and lateral collateral ligaments, iliotibial band, biceps femoris tendon and popliteus tendon are intact Extensor mechanism: The quadriceps tendon and the patellar tendon are intact. Minimal subcutaneous edema overlying the patellar tendon. There is also minimal edema surrounding the lateral retinaculum how out of her it appears intact. The medial retinaculum is intact Knee joint: There is no significant joint effusion. A small ganglion cyst is seen at the origin of the medial head of gastrocnemius muscle. Trace amount of fluid within a popliteal cyst as well as within the semimembranosus tibial collateral ligament bursa Medial compartment: There is globular signal seen within the middle and posterior one third of the medial meniscus however does not extend to the articular surface. The articular cartilage is intact Lateral compartment: No evidence of a meniscal tear. The articular cartilage is intact Patellofemoral articulation: There articular cartilage of the patella in the trochlear intact MRI/Lower Ext Joint Only (Routine) IMPRESSION: Minimal subcutaneous edema overlying the distal patella and the patellar tendon. This also extends along the lateral retinaculum but no evidence of a tear Minimal joint effusion Ganglion cyst at the origin of the medial head of the gastrocnemius muscle Trace amount of fluid within a popliteal cyst degenerative change within the middle and posterior one third of the medial meniscus but no definite extension to the articular surface at 0459 Reported and signed by: Niurka German DO Electronically Signed: Niurka German DO at 4:58 EDT Tel , Service support ,
== END ==
PROVIDERS: PCP Family Medicine; Referring Provider Orthopaedic Surgery; Visit Provider Orthopaedic Surgery
DX: S83.242A Other tear of medial meniscus, current injury, left knee, initial encounter (principal); M25.562 Pain in left knee
CPT/HCPCS: 73721

== ENCOUNTER → 2019-12-04 08:30 | Outpatient (CLI) | payer BC, SELFPAY ==
[2019-11-12 08:10] VITALS: BMI 45.9
[2019-12-04 12:20] LABS: Rheumatoid Factor < 10.0 IU/mL (<15); Uric Acid 6.5 mg/dL (3.5-7.2)
[2019-12-04 12:28] LABS: Erythrocyte Sedimentation Rate 10 mm/hr (0-20)
[2019-12-05 16:57] LABS: ANTINUCLEAR ANTIBODIES DIRECT Negative (Negative)
[2019-12-12 03:07] LABS: Lyme IgG P18 Ab Absent (.); Lyme IgG P23 Ab Absent (.); Lyme IgG P28 Ab Absent (.); Lyme IgG P30 Ab Absent (.); Lyme IgG P39 Ab Absent (.); Lyme IgG P41 Ab Absent (.); Lyme IgG P45 Ab Absent (.); Lyme IgG P58 Ab Absent (.); Lyme IgG P66 Ab Absent (.); Lyme IgG P93 Ab Present (.); Lyme IgM P23 Ab Absent (.); Lyme IgM P39 Ab Absent (.); Lyme IgM P41 Ab Absent (.)
[2019-12-12 09:35] LABS: Lyme IgG WB Interpretation Negative (.); Lyme IgM WB Interpretation Negative (.)
== END ==
PROVIDERS: PCP Family Medicine; Visit Provider Family Medicine
DX: M25.562 Pain in left knee (principal)
CPT/HCPCS: 36415; 84550; 85652; 86038; 86140; 86225; 86235; 86431; 86617

== ENCOUNTER → 2019-12-09 11:15 | Outpatient (CLI) | payer BC, SELFPAY ==
[2019-11-12 08:10] VITALS: BMI 45.9
--- NOTE | 2019-12-09 11:19 | VDLE_ITS ---
Reason For Study: pain Procedure LEFT Exam performed in department. GSV is normal. The exam was abbreviated due to the COVID 19 CFV is compressible, spontaneous, phasic, protocol. competent, and demonstrates normal The exam was diagnostic. augmentation. A preliminary report was called and/or faxed FV is compressible, spontaneous, phasic, to Mimi. competent and demonstrates normal augmentation. POP V is compressible, spontaneous, phasic, competent and demonstrates normal augmentation. T/P Trunk is compressible. PTV is compressible. LT PerV is compressible. Interpretation Summary Deep veins of the left lower extremity are patent and compressible segmentally. There is no evidence of left lower extremity deep vein thrombosis. Valvular competence appears intact within the proximal deep venous system on the left . The left great saphenous vein appears patent and compressible segmentally. Ordering Physician: Ximena Le Performed By: Marshall Ramirez RVSherrill
== END ==
PROVIDERS: PCP Family Medicine; Referring Provider Physician Assistant; Visit Provider Physician Assistant
DX: M79.662 Pain in left lower leg (principal)
CPT/HCPCS: 93971

== ENCOUNTER → 2020-01-21 11:31 | Outpatient (CLI) | payer BC, SELFPAY ==
[2019-11-12 08:10] VITALS: BMI 45.9
[2020-01-21 11:34] LABS: Bacteria 0 SEEN /hpf (None Seen); Mucous, Urine 0 SEEN /hpf (<or=2+); Red Blood Cells-Urine 0 SEEN /hpf (0-5); Squamous Epithelial Cells - UA 0 SEEN /hpf (0-5); White Blood Cells 0 SEEN /hpf (0-5)
[2020-01-21 15:34] LABS: Absolute Lymphocyte Count 3.59 X10^3/uL (0.83-4.51); Absolute Neutrophil Count 6.6 X10^3/uL (2.0-7.7); Basophil# 0.09 X10^3/uL; Basophil% 0.8 % (0-1); Eosinophil# 0.18 X10^3/uL; Eosinophils% 1.6 % (0-5); Hematocrit 47.7 % (40-54); Hemoglobin 15.6 g/dL (13.0-16.5); Lymphocyte # 3.59 X10^3/ul (4.0); Lymphocyte % 31.5 % (19-41); Mean Corp Hgb Conc 32.7 g/dL (32-36); Mean Corpuscular Hgb 29.1 pg (27.0-32.0); Mean Platelet Vol. 11.4 fl (6.2-12.0); Monocyte# 0.85 X10^3/uL; Monocyte% 7.4 % (0-10); NRBC Flagged by Analyzer 0 % (0-5); Neutrophil % 57.8 % (47-70); Platelet Count 279 K/mm3 (150-450); RBC Distribution Width SD 42.1 fl (35.1-43.9); Red Blood Count 5.36 M/mm3 (4.6-6.2); White Blood Count 11.4 K/mm3 (4.4-11.0)
[2020-01-21 15:51] LABS: Hemoglobin A1c 5.8 % (3.8-5.6)
[2020-01-21 15:53] LABS: Color, Urine Yellow (Yellow); Glucose, Dipstick Normal (Normal); Ketone-Dipstick Negative (Negative); Leukocyte Esterase-Dipstick Negative /ul (Negative); Nitrite-Dipstick Negative (Negative); Occult Blood-Urine 10 /ul (Negative); Protein-Dipstick Negative (Negative); Urine Bilirubin Dipstick Negative (Negative); Urine Clarity Clear (Clear); Urine Urobilinogen Normal (Normal)
[2020-01-21 16:00] LABS: Anion Gap 7 (5-15); BUN 12 mg/dL (7-18); BUN/Creat Ratio 14.3 RATIO (10-20); Calcium,Total 9.1 mg/dL (8.5-10.1); Chloride 104 mmol/L (98-107); Creatinine, Serum 0.84 mg/dL (0.70-1.30); EST Glomerular Filtration Rate 103 mL/min (>60); Est Glom Filt Rate - Afr Amer 124 mL/min (>60); Glucose 99 mg/dL (74-106); Potassium 3.9 mmol/L (3.5-5.1); Sodium Level 140 mmol/L (136-145)
== END ==
PROVIDERS: PCP Family Medicine; Visit Provider Family Medicine
DX: R35.8 Other polyuria (principal); R42 Dizziness and giddiness
CPT/HCPCS: 36415; 80048; 81001; 83036; 85025

== ENCOUNTER → 2020-06-23 08:55 | Outpatient (CLI) | payer OTHER, MEDICAID, SELFPAY ==
[2019-11-12 08:10] VITALS: BMI 45.9
--- NOTE | 2020-06-23 09:00 | BI_ITS ---
MAMMOGRAPHY - BILATERAL DIAGNOSTIC REASON FOR EXAM: Male, 49 years old. Left breast pain. History of prior left excisional breast biopsy. PERTINENT HISTORY: Grandmother with breast cancer. TECHNIQUE: Digital bilateral breast justyn (3D mammographic acquisition) in the CC and MLO projections. 2-D mediolateral oblique (MLO) and craniocaudad (CC) views of both breasts were obtained. CAD: Full Field Digital Mammography with Computer Added Detection was performed. COMPARISON: Comparison is made with prior examination dated 02/26/2019 and 01/30/2018. FINDINGS: Breast Composition: The breasts are almost entirely fatty. Minimal amount of the retroareolar breast tissue. There are no dominant masses or suspicious calcifications. No other significant abnormalities are identified. There has been no significant change since the prior study. BI/DIAG MAMM W/CAD, BILAT IMPRESSION: Stable bilateral diagnostic mammogram. With the patient''s history of left breast pain, correlation with ultrasound is recommended. ASSESSMENT CATEGORY: BIRADS Category 0: Incomplete. Need additional imaging evaluation. A letter regarding these results will be sent to the patient by the facility within 30 days. Approximately 10% of breast cancers are not detected by mammography. A normal mammogram should not delay biopsy of a clinically suspicious abnormality. Electronically Signed: Bharat Mcbride MD at 9:36 EDT , Service support ,
--- NOTE | 2020-06-23 09:00 | US_ITS ---
STUDY: ULTRASOUND BREAST - LEFT REASON FOR EXAM: Male, 49 years old. Palpable mass TECHNIQUE: Axial and longitudinal images of the LEFT breast were performed with a high resolution ultrasound transducer. # OF IMAGES: 93 COMPARISON: None. FINDINGS: LEFT Breast: There is a lesion #1 in the upper outer quadrant. The lesion measures 11x 13 x 4 cm in size. Clock notation: 1 o''clock position. Distance from nipple: 1 cm. Posterior Enhancement: Yes. Posterior Shadowing: None. Margins: Sharp and smooth. Echogenicity: Isoechoic. Compression effect on Shape: No change. US/Breast Limited Unilateral IMPRESSION: Lipoma in the area of palpable abnormality in the left breast. ASSESSMENT CATEGORY: BIRADS Category 3: Probably Benign - Short-Interval Follow-up Suggested. A letter regarding these results will be sent to the patient by the facility within 30 days. Electronically Signed: Herve Smith MD at 14:37 EDT Tel , Service support ,
== END ==
PROVIDERS: PCP Family Medicine; Referring Provider Family Medicine; Visit Provider Family Medicine
DX: N63.21 Unspecified lump in the left breast, upper outer quadrant (principal)
CPT/HCPCS: 76642; 77062; 77066; G0279

== ENCOUNTER 2021-03-26 21:41 | Emergency (ER) | payer OTHER, SELFPAY ==
[2021-03-26 21:42] VITALS: BP 149/84; PULSE 100; RESP 19; TEMP 36.4; O2SAT 98; BMI 44.3
[2021-03-26] MEDS: LORazepam 0.5 MG Tablet PO (22:13)
[2021-03-26] MEDS: Sertraline 50 MG Tablet 25 MG PO (22:13)
--- NOTE | 2021-03-26 22:15 | EX.ED.VIS.PS ---
HPI HPI - Psych History of Present Illness Chief Complaint: Anxiety Detail of Chief Complaint: Anxiety, trouble with sleep, depressed Informant: patient and spouse/S.O. Onset/Context/Timing Onset: Month(s) (1 to 2 months) Context: Gradual Onset Conflict: Family, Work and Financial Timing: Intermittent and Waxes and wanes Current Severity: Severe Maximum Severity: Severe Worsened by: Situational factors Relieved by: Nothing Associated Symptoms Associated Symptoms - Psych: Positive for Depressed, Change in Eating, Change in sleeping, Easily distracted and Increased activity; Negative for Decreased Interest, Guilt, Decreased Concentration, Hopelessness, Suicidal Thoughts, Grandiosity, Flight of Ideas, Pressured Speech, Agitated, Angry, Hostile, Threatening, Confusion, Paranoia, Visual Hallucinations and Auditory Hallucinations Specific plan (suicidal thought): Not applicable Narrative Narrative: Patient is a 50-year-old male with history of hypertension and anxiety who discontinued taking his anxiety medication spring 2020. He presents to the emergency department because his wanted him evaluated. She states it has gotten worse over the past 1 to 2 months. He continuously worries. He perseverates. He replaced things over and over. There is been stressors at work, family, finances. He has had trouble with sleep. He has had trouble getting asleep staying asleep and getting up in the morning. He does admit to depression. He has no suicidal or homicidal thoughts. He states because of family situation he canceled surgery for removal of lipoma. He is worried about the lipoma and the fact that he had to cancel. He is worried about a trailer that he hitched up. He contacted the patron. Patient stated everything was okay. He still is worried that he may have hooked up the hitch improperly because the client apparently had the portion was attached to the car upside down. He is concerned the person does not know how to drive with a trailer. Prior similar symptoms: Yes Recent Illness/Hospitalization: No PFSH [facility] Medical History Alcohol use Anxiety Anxiety and depression Arthritis Arthritis Back pain Back pain Breast lump Difficulty balancing Essential (primary) hypertension Former smoker Gastric reflux Hearing problem History of stress test Inguinal hernia, bilateral Kidney stone Kidney stones Lipoma of left axilla Subcutaneous mass Thoracic stomach hernia Wears contact lenses Wears glasses Home Medications aspirin 81 mg tablet,delayed release 81 mg PO DAILY 10/20/19 [History Last Taken Unknown] baclofen 5 mg tablet 5 mg PO Q6H PRN tab 02/07/21 [History Last Taken Unknown] lisinopril 20 mg-hydrochlorothiazide 25 mg tablet 1 tab PO DAILY 02/07/21 [History Last Taken Unknown] lorazepam [Ativan] 0.5 mg PO TID #20 tab 03/26/21 [Rx Last Taken Unknown] sertraline [Zoloft] 25 mg PO QHS #30 tab 03/26/21 [Rx Last Taken Unknown] Allergy/AdvReac Type Severity Reaction Status Date / Time No Known Allergies Allergy Verified 03/14/21 09:24 Family History Grandmother Breast cancer Father Diabetes Kidney disease Uncle Kidney disease Grandfather CVA (cerebral vascular accident) Grandfather CVA (cerebral vascular accident) Other Cancer Heart disease Surgical History History of gastric surgery History of left heart catheterization (12/03/18) History of tonsillectomy S/P excision of lipoma Social History (Updated 03/26/21 @ 22:[address] Kd Joseph MD) household members: spouse and children Smoking Status: Former smoker how long ago did patient quit smoking: MAY 2018 alcohol intake: current alcohol intake frequency: a few times a week Alcohol type: beer substance use type: does not use additional social history: DOES USE IBUPROFEN DOES NOT USE ASPIRIN ROS ROS ED Constitutional Constitutional ED: Denies chills, fever(s), subjective, sweats or weight loss Eyes Eyes: Denies blurry vision or change in vision ENT ENT ED: Denies ear pain, rhinorrhea or sore throat Cardiovascular Cardiovascular: Denies chest pain, orthopnea, palpitations or racing heartbeat Respiratory/Chest Respiratory/Chest: Reports dyspnea; Denies cough, dyspnea on exertion or orthopnea Gastrointestinal Gastrointestinal: Denies abdominal pain, nausea or vomiting Musculoskeletal Musculoskeletal: Denies arthralgias or myalgias Neurologic Neurologic: Denies headache(s) or weakness Psychiatric Psychiatric: Reports anxiety; Denies depression, suicidal ideation or suicidal thoughts EXAM Physical Exam Const Vital Signs: 03/26/21 21:42 Temperature 97.6 F L Temperature Source Temporal Pulse Rate 100 Respiratory Rate 19 H Blood Pressure 149/84 H Blood Pressure Mean 105 Pulse Ox 98 Oxygen Delivery Method Room Air Positive well nourished, well developed and obese General Appearance ED: well developed, pallor and other Patient anxious and fidgety. Nutritional Appearance: obese HEENT normocephalic and atraumatic Eyes PERRL and EOMs intact bilaterally General Eye ED: Negative for pale conjunctiva or scleral icterus Neck no lymphadenopathy, supple and no JVD Resp normal respiratory effort and clear to auscultation bilaterally Cardio S1 normal heart sound, S2 normal heart sound and no murmurs Rate: regular rate Rhythm: regular rhythm GI non-tender Auscultation: normoactive bowel sounds Palpation: soft Neuro oriented x3 and CN's II-XII intact bilaterally Gretchen Coma Scale: document GCS findings Spontaneous Extensor Response Oriented 11 Sensorium / Orientation: alert Psych mental status grossly normal, cooperative, denies hallucinations, denies homicidal ideation and denies suicidal ideation Appearance: grossly normal Attitude: engaged Activity / Motor Behavior: appropriate eye contact and fidgetting Speech: normal speech Mood & Affect: anxious and flat affect Thought Process: normal thought process and perseverating Thought Content: normal thought content Attention / Concentration: attention grossly intact and concentration grossly intact Memory / Cognition: memory grossly intact Insight: fair Judgement: judgement good Skin General Skin Exam: jaundice and pallor MDM MDM MDM Narrative Medical decision making narrative: Patient with anxiety and depression that has gotten worse over the past 1 to 2 months. Patient unable to recall medicines he was taking prior to discontinuing. Plan is to treat with Ativan and sertraline. He was given dose in the emergency department and prescriptions to go. His blood pressure is slightly elevated 149/84. He states recently his blood pressure medicine was increased because of elevated readings. Recommended follow-up with Dr. Forbes. Discharge Plan Triage Chief Complaint: Anxiety ED Provider: Kd Joseph Dx/Rx/DC Orders Clinical Impression: Anxiety and depression Instructions: ED Anxiety Reaction, ED Depression Prescriptions: New lorazepam [Ativan] 0.5 mg tablet 0.5 mg PO TID Qty: 20 RF: 0 sertraline [Zoloft] 25 mg tablet 25 mg PO QHS Qty: 30 RF: 0 No Action aspirin [Adult Low Dose Aspirin] 81 mg tablet,delayed release (DR/EC) 81 mg PO DAILY RF: 0 lisinopril-hydrochlorothiazide 20-25 mg tablet 1 tab PO DAILY RF: 0 baclofen 5 mg tablet 5 mg PO Q6H PRN (Reason: Pain) RF: 0 Primary Care Provider: Rivera Forbes Referrals: Rivera Forbes DO [Primary Care Provider] - 1 Week Disposition Disposition: Home, Self Care
== END 2021-03-26 22:53 | disposition home or self-care (01) ==
PROVIDERS: Emergency Provider Emergency Medicine; PCP Family Medicine; Visit Provider Emergency Medicine
DX: F41.9 Anxiety disorder, unspecified (principal); Z68.41 Body mass index [BMI] 40.0-44.9, adult; Z56.6 Other physical and mental strain related to work; F32.A Depression, unspecified; Z87.891 Personal history of nicotine dependence; I10 Essential (primary) hypertension; Z79.899 Other long term (current) drug therapy; M19.90 Unspecified osteoarthritis, unspecified site; Z87.442 Personal history of urinary calculi; Z79.82 Long term (current) use of aspirin; E66.9 Obesity, unspecified
CPT/HCPCS: 99283

== ENCOUNTER 2021-05-05 08:39 | Day surgery (SDC) | payer OTHER, SELFPAY ==
[2021-05-05] VITALS (10 sets, daily range): BP systolic 108–137; BP diastolic 63–90; PULSE 80–94; RESP 16; TEMP 35.8–37.3; O2SAT 92–99; BMI 43.7
--- NOTE | 2021-05-05 | IMM_PTH ---
PATIENT: ARI DE ANDA LOC: [facility] [place] U#:[id number] AGE/SX: 50/M ROOM: RE05/05/[address]: Dr. Santiago Plaza MD : 1970 BED: DIS: 05/05/2021 SPEC #: [id number] RECD: 05/10/21 07:34 STATUS: ADAM RECurtis #: [id number] KO: 05/05/21 00:[address]: Santiago Plaza DEPT: IMMUNOHISTOCHEMISTRY RECD BY: Yamilex Craig ENTERED: 05/10/21 07:35 SP TYPE: IMMUNO OTHR DR: Dr. Rivera Forbes, DO Tissues: Chest wall, NOS Procedures: MACRO (add) P53 (add) Vimentin (add) Pankeratin (add) S100 (initial) PHYSICIAN & INSTITUTION [place] [id number] SPECIMEN INFORMATION: Tissue Source: Left chest wall mass Clinical Info: Mass of axillary tail of left breast Specimen Number: [id number] #2 CPT code: 49665,21892 x4 METHODOLOGY: Deparaffinized sections of prefer/formalin-fixed tissue or PAP/DQ stained slides are incubated with monoclonal/polyclonal antibodies/oligonucleotide probes. Localization is made via biotin free immunoperoxidase method. Appropriate controls are performed and reacted as expected. Results on target cell population are indicated in the following table: RESULTS: ANTIBODY / CLONE RESULT Block 2 S-100 (4C4.9) negative Macro (HAM-56) positive Vimentin (V9) positive P53 (DO-7) negative AE1-3 (AE1/AE3/PCK26) negative These tests were developed and their performance characteristics determined by [facility]. They may not have been cleared or approved by the U.S. Food and Drug Administration. The FDA has determined that such clearance or approval is not necessary. The above immunohistochemical/dualISH markers are ordered and reviewed by the Pathologist. INTERPRETATION: Left chest wall mass, excision: Consistent with fat necrosis. AM:sheila 05/10/2021
--- NOTE | 2021-05-05 10:16 | HP.PCM_ITS ---
HPI - General HPI Narrative ARI DE ANDA, is a 50 M who presents for excision of a very large left lateral breast subcutaneous lipoma. There is evidence April 14, [address] Jack Mayen excised a left axillary lipoma. Since that time left lateral breast lesion has continued to increase in size. The patient was not clear as to wh ether the lesion of his initial concern had been removed. He presented to me. We previously had him scheduled and he did cancel that appointment. We now have him rescheduled to undergo an excision. On June 23, 2020 and ultrasound suggested a 13 x 11 cm subcutaneous mass left lateral breast. Mammograms dating back to June 23, 2020 demonstrates fibrofatty tissue but no focal mass. [facility] Medical History (Updated 04/28/21 @ 13:33 by Serena Mcdermott) Alcohol use Anxiety Anxiety and depression Arthritis Arthritis Back pain Back pain Breast lump Depression Difficulty balancing Essential (primary) hypertension Former smoker Gastric reflux Hearing problem History of stress test Inguinal hernia, bilateral Kidney stone Kidney stones Lipoma of left axilla Subcutaneous mass Thoracic stomach hernia Wears contact lenses Wears glasses Home Medications aspirin 81 mg tablet,delayed release 81 mg PO DAILY 10/20/19 [History Last Taken Unknown] baclofen 5 mg tablet 5 mg PO Q6H PRN tab 02/07/21 [History Last Taken Unknown] lisinopril 20 mg-hydrochlorothiazide 25 mg tablet 1 tab PO DAILY 02/07/21 [History Last Taken Unknown] lorazepam [Ativan] 0.5 mg PO TID #20 tab 03/26/21 [Rx Last Taken 05/05/21] Allergy/AdvReac Type Severity Reaction Status Date / Time No Known Allergies Allergy Verified 05/05/21 09:37 Family History Grandmother Breast cancer Father Diabetes Kidney disease Uncle Kidney disease Grandfather CVA (cerebral vascular accident) Grandfather CVA (cerebral vascular accident) Other Cancer Heart disease Surgical History History of gastric surgery History of left heart catheterization (12/03/18) History of tonsillectomy S/P excision of lipoma Social History (Updated 03/26/21 @ 22:[address] Kd Joseph MD) household members: spouse and children Smoking Status: Former smoker how long ago did patient quit smoking: MAY 2018 alcohol intake: current alcohol intake frequency: a few times a week Alcohol type: beer substance use type: does not use additional social history: DOES USE IBUPROFEN DOES NOT USE ASPIRIN ROS Constitutional Constitutional: Reports systems reviewed and no addt'l complaints, except as doc umented Cardiovascular Cardiovascular: Denies chest pain Respiratory/Chest Respiratory/Chest: Denies shortness of breath at rest Gastrointestinal Gastrointestinal: Denies abdominal pain, change in bowel habits, hematochezia or melena Vital Signs Vital Signs Vital Signs: 05/05/21 09:38 Temperature 98.8 F Temperature Source Temporal Pulse Rate 85 Respiratory Rate 16 Respiratory Pattern Normal Blood Pressure 136/89 H Blood Pressure Mean 104 Blood Pressure Source Monitor Blood Pressure Position Semi-Fowlers Blood Pressure Location Right Arm Pulse Ox 98 Oxygen Delivery Method Room Air Weight Weight: 296 lb 8.348 oz Body Mass Index (BMI) 43.7 Physical Exam Const alert and oriented x3 General Appearance: cooperative Orientation / Consciousness: awake HEENT normocephalic Eyes PERRL Neck full ROM Chest Chest: other Markedly abnormal left lateral breast with large fibrofatty mass extending for at least 14 cm laterally. Healed left axillary incision Resp normal respiratory effort Auscultation: clear to auscultation bilaterally Cardio regular rate and regular rhythm GI Palpation: soft Rectal Exam: other Psych mental status grossly normal Appearance: grossly normal Assessment & Plan Assessment/Plan (1) Mass of axillary tail of left breast: PLAN: Large left lateral breast subcutaneous mass suspicious for very large lipoma. I recommended the patient an excision of this area. He is aware of the technique, benefit, risk and alternatives. He has had an opportunity to ask and have questions answered. Body habitus with a body weight of 296 pounds complicates the procedure. I anticipate needing a subcutaneous drain at the completion. Santiago Plaza M.D., F.A.C.S.
--- NOTE | 2021-05-05 10:22 | EX.PCM.DISCH ---
Discharge Instructions Procedure Breast Surgery Diet Discharge Diet: No restrictions Activity Discharge Activity: May Not Drive (for 2-3 days or while taking narcotic pain meds.) Lifting Restrictions: 10 pounds for 1 week. Dressing / Incision Call your doctor if your incision/area has: Continuous Slow Oozing and Sudden Increased Bleeding Call your doctor if you observe: Fever of 101 or Higher Suture Line Care: Avoid Pulling/Pushing and Avoid Pinching/Bending Remove Dressing in: 1 day Additional Dressing/Incision Instructions:: You may remove gauze dressings around the drain site on a daily basis and cleanse that site with a Q-tip and hydrogen peroxide and then apply dry gauze and tape. Follow Up Care When: Please call [phone] for office appointment on Monday May 10, 2021 Test Results: Test results from this visit will be discussed in further detail at your follow-up appointment, if applicable. Discharge Plan Admission Attending Provider: Santiago Plaza Primary Care Provider: Rivera Forbes Discharge Orders/Prescriptions Prescriptions: No Action aspirin [Adult Low Dose Aspirin] 81 mg tablet,delayed release (DR/EC) 81 mg PO DAILY RF: 0 lisinopril-hydrochlorothiazide 20-25 mg tablet 1 tab PO DAILY RF: 0 baclofen 5 mg tablet 5 mg PO Q6H PRN (Reason: Pain) RF: 0 lorazepam [Ativan] 0.5 mg tablet 0.5 mg PO TID Qty: 20 RF: 0
--- NOTE | 2021-05-05 11:00 | MASS_PTH ---
PATIENT: ARI DE ANDA LOC: [facility] [place] U#:[id number] AGE/SX: 50/M ROOM: RE05/05/[address]: Dr. Santiago Plaza MD : 1970 BED: DIS: 05/05/2021 SPEC #: [id number] RECD: 05/05/21 12:48 STATUS: ADAM RECurtis #: [id number] KO: 05/05/21 11:[address]: Santiago Plaza DEPT: SURGICAL PATHOLOGY RECD BY: Rehana Blair ENTERED: 05/06/21 09:06 SP TYPE: Mass OTHR DR: Dr. Rivera Forbes, DO Tissues: Chest wall, NOS Procedures: Surgery Specimen Level IV HEADER OPERATION: Excision subcutaneous mass chest wall PRE-OP DIAGNOSIS: Mass of axillary tail of left breast TISSUE SUBMITTED: Left chest wall mass MICROSCOPIC DIAGNOSIS Left chest wall mass, excision: Mature adipose tissue consistent with lipoma with focal changes of fat necrosis. See comment. AM:sheila 05/10/2021 COMMENT Immunohistochemistry ([id number]) supports the above diagnosis. Case has been reviewed in consultation with Dr. Aaron who concurs with the above diagnosis. [place]:TACO MICROSCOPIC DESCRIPTION Slides are reviewed. GROSS DESCRIPTION Received in fixative is one container labeled with the patient's name and designated left chest wall mass. The specimen consists of a nodular piece of adipose tissue measuring 16 x 13 x 7 cm. Also present in the container is a detached piece of skin and underlying tissue measuring 9.5 x 3.5 cm and up to 1 cm in thickness. A central area of recent incision is noted in this piece. Also present in the container are multiple pieces of detached adipose tissue measuring in aggregate 8 x 7 x 3 cm. The largest piece is inked with black ink. The skin piece overlying the largest piece measures 7.5 x 1.5 cm. Sections reveal yellow adipose cut surfaces without area of hemorrhage, necrosis or cystic degeneration. [place] Cleaner sections are submitted in six cassettes. Cassette 1 contains the skin piece. / SJ:sheila 05/06/2021 TC:1 CPT: 41496
[2021-05-05] MEDS: Lidocaine 1% (30 ml sdv) 30 ML Vial (11:17)
[2021-05-05] MEDS: Bupivacaine Mpf 0.5% 30 ML VIAL (11:17)
--- NOTE | 2021-05-05 12:33 | OP.PCM_ITS ---
Problems Associated Problem List Diagnoses (1) Mass of axillary tail of left breast: Report of Operation Date of Procedure: 05/05/21 Pre-Operative Diagnosis: Large left lateral breast subcutaneous mass Post-Operative Diagnosis: Same Surgery/Procedure Performed:: Excision large left lateral breast subcutaneous mass measuring 20 x 13 x 4.5 cm Description of Surgical Findings:: Timeout informed consent was obtained. 50-year-old gentleman was taken to the operating placed on the table underwent general anesthesia. The left breast was sterilely prepped and draped. In the lateral aspect of the left breast there was an extraordinarily large subcutaneous mass. An initial transverse ellipse of skin measuring approximately 10 x 5 cm was created. Tedious dissection was performed with electrocautery and sharp dissection. Hemostasis was obtained throughout with 3-0 Vicryl ties and ligatures and electrocautery. The dissection was performed down to the chest wall. It extended up toward the axilla but I did not see any adenopathy. Tediously was dissected free. The edge of the lesion at times quite challenging to decipher from the rest of the tissue. It was then completely excised. He mostasis was assured. The cavity was irrigated with saline. A 15 round NONA drain was exited from the stab incision inferiorly and secured with 3-0 nylon. The wound was then approximated to the chest almonte were possible with interrupted 3- 0 Vicryl. The skin edges were approximated the same but I was not happy with the closure so then I reexcised an ellipse of skin. This measured approximately 11 x 5 cm again. Then approximated the new edges with multiple subdermal stitches of interrupted 3-0 Vicryl. The skin edges were then approximated running septic of 4-0 Monocryl. The periincisional area was anesthetized with 0.5% Marcaine mixed 50-50 with 1% lidocaine a total of 60 cc was used. Steri-Strips Telfa bulky dry pressure dressing applied. Sponge and instrument and needle counts were reported to the surgeon to be correct. Specimen large subcutaneous mass. Drains 15 round NONA. Blood loss 100 cc. The patient was taken to the recovery area in satisfactory addition without apparent complication Santiago Plaza M.D., F.A.C.S. Surgeon: Santiago Plaza Type of Anesthesia: General and Local Anesthesiologist: Nadine Rodriges
[2021-05-05] MEDS: Lactated Ringers 1,000 ML 15 ML IV (13:23)
[2021-05-05] MEDS: Acetaminophen 325 MG Tablet 650 MG PO (15:45)
== END 2021-05-05 23:59 | disposition home or self-care (01) ==
LOC: SDC 08:40 → AC 08:41
PROVIDERS: PCP Family Medicine; Referring Provider Surgery; Visit Provider Surgery
PROC: (CPT 19120; principal; 2021-05-05 10:45)
DX: N63.32 Unspecified lump in axillary tail of the left breast (principal); Z87.891 Personal history of nicotine dependence; Z79.82 Long term (current) use of aspirin; I10 Essential (primary) hypertension; M19.90 Unspecified osteoarthritis, unspecified site; F32.A Depression, unspecified; K21.9 Gastro-esophageal reflux disease without esophagitis; Z87.442 Personal history of urinary calculi; Z79.899 Other long term (current) drug therapy
CPT/HCPCS: 19120; 00400; 88305; 88341; 88342; J7120; J2405

== ENCOUNTER → 2021-10-19 | Outpatient (CLI) | payer OTHER, SELFPAY | END | disposition home or self-care (01) | PROVIDERS: PCP Family Medicine; Visit Provider Family Medicine | DX: R30.0 Dysuria (principal) | CPT/HCPCS: 87086 ==

== ENCOUNTER 2021-12-03 19:11 | Emergency (ER) | payer OTHER, SELFPAY ==
[2021-12-03 19:11] VITALS: BP 126/77; PULSE 64; RESP 22; TEMP 36.7; O2SAT 97; BMI 41.8
--- NOTE | 2021-12-03 19:22 | CT_ITS ---
STUDY: CT Abdomen And Pelvis W/O Contrast Injection 12/03/2021 8:33 PM REASON FOR EXAM: Male, 51 years old. ABDOMINAL PAIN Pain left flank TECHNIQUE: Transaxial images were obtained without oral contrast, and without intravenous contrast. Individualized dose optimization techniques were used for this CT. COMPARISON: None. FINDINGS: The visualized lung bases are unremarkable. The visualized portions of the heart are within normal limits. Unremarkable liver. Unremarkable gallbladder and extrahepatic biliary system. Unremarkable spleen. Unremarkable pancreas. Unremarkable bilateral adrenal glands. There are hypodensities in the right kidney. These are consistent for cysts. No follow up required. Non obstructive 2 mm left renal parenchymal stones. Mild hydronephrosis caused by left 3.4 mm proximal ureteral stone. Unremarkable visualized stomach. Unremarkable small intestine. Unremarkable colon. The appendix is visualized and appears unremarkable. There are no acute findings of the abdominal aorta. Unremarkable inferior vena cava. Subcentimeter mesenteric lymph nodes. Unremarkable urinary bladder. There are prostatic calcifications. There is an umbilical hernia containing fat. There are bilateral inguinal hernias containing fat. There is no bowel involvement. There is no incarceration. There is no findings suggesting that this is causing a bowel obstruction. There are diffuse degenerative changes of the visualized lumbar spine. There is bilateral neural foraminal stenosis at L4-5 and L5-S1. CT/Abdomen/Pelvis without Cont IMPRESSION: (NOT LISTED IN ORDER OF SIGNIFICANCE) Mild hydronephrosis caused by left 3.4 mm proximal ureteral stone. There is bilateral neural foraminal stenosis at L4-5 and L5-S1. Other findings as above. Electronically Signed: Mulugeta Aaron MD at 20:35 EDT ,
--- NOTE | 2021-12-03 19:22 | EX.ED.DYSGE1 ---
HPI History of Present Illness Chief Complaint: Flank Pain Informant: patient and spouse/S.O. Narrative Narrative: Patient got sudden onset of left flank pain. He has had nausea but no vomiting. He felt sweaty. He cannot get comfortable. He states he had a kidney stone about 15 years ago but does not remember what it was like. He did note that his urine was a little bit cloudy this morning but it seemed to clear up as the day went on. He had no other symptoms with that urine. No burning or discomfort. He has had no trauma. He has no numbness tingling. No syncope or presyncope. [facility] Medical History Alcohol use Anxiety Anxiety and depression Arthritis Arthritis Back pain Back pain Breast lump Depression Difficult intravenous access Difficulty balancing Essential (primary) hypertension Former smoker Gastric reflux Hearing problem History of stress test Inguinal hernia, bilateral Kidney stone Kidney stones Lipoma of left axilla Neuropathic pain Subcutaneous mass Thoracic stomach hernia Wears contact lenses Wears glasses Home Medications aspirin 81 mg tablet,delayed release (Adult Low Dose Aspirin) 81 mg PO DAILY 10/20/19 [History Last Taken Unknown] lisinopril 20 mg-hydrochlorothiazide 25 mg tablet 1 tab PO DAILY 02/07/21 [History Last Taken Unknown] lorazepam 0.5 mg tablet (Ativan) 0.5 mg PO TID PRN PRN Anxiety 12/03/21 [History Last Taken Unknown] ondansetron 4 mg disintegrating tablet 4 mg PO Q8H PRN nausea and vomiting #10 tabs 12/03/21 [Rx Last Taken Unknown] oxycodone-acetaminophen 5 mg-325 mg tablet (Percocet) 1 tab PO Q6H PRN pain 3 days #10 tabs 12/03/21 [Rx Last Taken Unknown] tamsulosin 0.4 mg capsule (Flomax) 0.4 mg PO DAILY #10 caps 12/03/21 [Rx Last Taken Unknown] venlafaxine 75 mg capsule,extended release 24 hr 75 mg PO DAILY 12/03/21 [History Last Taken Unknown] Allergy/AdvReac Type Severity Reaction Status Date / Time povidone-iodine Allergy Intermediate rash Verified 10/29/21 10:12 [From Betadine] Family History Grandmother Breast cancer Father Diabetes Kidney disease Uncle Kidney disease Grandfather CVA (cerebral vascular accident) Grandfather CVA (cerebral vascular accident) Other Cancer Heart disease Surgical History History of gastric surgery History of left heart catheterization (12/03/18) History of tonsillectomy S/P excision of lipoma Social History household members: spouse and children Smoking Status: Former smoker how long ago did patient quit smoking: MAY 2018 alcohol intake: current alcohol intake frequency: a few times a week Alcohol type: beer substance use type: does not use additional social history: DOES USE IBUPROFEN DOES NOT USE ASPIRIN ROS ROS ED Constitutional Constitutional ED: Denies chills, fever(s) or subjective ENT ENT ED: Denies rhinorrhea or sore throat Cardiovascular Cardiovascular: Denies chest pain or palpitations Respiratory/Chest Respiratory/Chest: Denies cough or dyspnea Gastrointestinal Gastrointestinal: Reports abdominal pain and nausea; Denies constipation, diarrhea, melena or vomiting Genitourinary Genitourinary ED: Reports other Details: See history of present illness. ; Denies dysuria, hematuria or urinary frequency Musculoskeletal Musculoskeletal: Reports other Details: Left flank pain. Integumentary Denies rash Neurologic Neurologic: Denies headache(s), paresthesias or weakness Endocrine Endocrinology: Denies polydipsia or polyuria Hematologic/Lymphatic Hematologic/Lymphatic: Denies easy bleeding or easy bruising Allergic/Immunologic Allergic/Immunologic ED: Denies urticaria EXAM Physical Exam Const Vital Signs: 12/03/21 19:11 Temperature 98.0 F Temperature Source Oral Pulse Rate 64 Respiratory Rate 22 H Blood Pressure 126/77 H Blood Pressure Mean 93 Pulse Ox 97 Oxygen Delivery Method Room Air Positive well nourished and well developed Constitutional Narrative: Patient does look comfortable. He is lying on his right side. He rocks a little bit [id number]. General Appearance ED: well developed HEENT Reports dry mucous membranes HEENT Narrative: Mildly dry mucous membrane Mouth ED: Yes dry mucous membranes Mouth: dry mucous membranes Eyes General Eye ED: Negative for scleral icterus Neck supple Resp normal respiratory effort and clear to auscultation bilaterally Cardio regular rate, regular rhythm and no murmurs GI normal to inspection, nondistended, normoactive bowel sounds GI Narrative: Patient does state that there is a little bit of tenderness toward the left lower quadrant left flank area. No rebound or guarding. No CVA tenderness though Back/Spine no CVA tenderness Extremity General Extremety ED: Negative for tenderness Neuro Sensorium / Orientation: alert Psych mental status grossly normal Skin no rashes or lesions noted MDM MDM MDM Narrative Medical decision making narrative: CBC did show mild elevation white count. But this might be demargination from pain. He has no fevers. His symptoms are started. His electrolytes look good including kidney function. Urine shows red cells but no white cells or convincing evidence of infection. CT scan shows a 3.4 mm proximal ureteral stone. Patient's pain was improved quite a bit. Is starting to come back. I will get her more meds while he is here. We will have him follow-up with urology. We discussed returning especially with nausea vomiting fevers or other concerns. Lab Data Attestation: I reviewed the patient's lab results. Labs: Laboratory Results - last 24 hr 12/03/21 12/03/21 12/03/21 19:35 19:35 19:35 WBC 15.5 H RBC 4.72 Hgb 14.0 Hct 41.9 MCV 88.8 MCH 29.7 MCHC 33.4 RDW Std Deviation 42.5 RDW Coeff of Nitish 13.0 Plt Count 272 MPV 10.2 Immature Gran % (Auto) 0.600 Neut % (Auto) 73.8 H Lymph % (Auto) 19.4 [place] % (Auto) 5.4 Eos % (Auto) 0.3 Baso % (Auto) 0.5 Absolute Neuts (auto) 11.5 H Absolute Lymphs (auto) 3.01 Nucleated RBC % 0 Sodium 141 Potassium 3.8 Chloride 105 Carbon Dioxide 29.0 Anion Gap 7 BUN 15 Creatinine 0.94 Estim Creat Clear Calc 90.88 Est GFR (MDRD) Af Amer 108 Est GFR (MDRD) Non-Af 90 BUN/Creatinine Ratio 16.0 Glucose 131 H Calcium 9.1 Urine Color Yellow Urine Clarity Clear Urine pH 6.0 Ur Specific [place] 1.030 Urine Protein 30 H Urine Glucose (UA) Normal Urine Ketones 5 H Urine Occult Blood 250 H Urine Nitrite Negative Urine Bilirubin Negative Urine Urobilinogen 1 H Ur Leukocyte Esterase Negative Urine RBC 25-50 SEEN Urine WBC 0-5 SEEN Ur Squamous Epith Cells 0-5 SEEN Urine Bacteria RARE Urine Mucus 0 SEEN Radiography Diagnostic Testing: Clinical Impression(s) from Imaging Studies Abdomen/Pelvis CT 12/03/21 19:22 IMPRESSION: (NOT LISTED IN ORDER OF SIGNIFICANCE) Mild hydronephrosis caused by left 3.4 mm proximal ureteral stone. There is bilateral neural foraminal stenosis at L4-5 and L5-S1. Other findings as above. Electronically Signed: Mulugeta Aaron MD at 20:35 EDT , Discharge Plan Triage Chief Complaint: Flank Pain ED Provider: Afshin Dove Dx/Rx/DC Orders Clinical Impression: Kidney stone on left side Instructions: ED Kidney Stone w/ Colic Prescriptions: New oxycodone-acetaminophen [Percocet] 5-325 mg tablet 1 tab PO Q6H PRN (Reason: pain) 3 Days Qty: 10 0RF ondansetron 4 mg tablet,disintegrating 4 mg PO Q8H PRN (Reason: nausea and vomiting) Qty: 10 0RF tamsulosin [Flomax] 0.4 mg capsule 0.4 mg PO DAILY Qty: 10 0RF No Action aspirin [Adult Low Dose Aspirin] 81 mg tablet,delayed release (DR/EC) 81 mg PO DAILY lisinopril-hydrochlorothiazide 20-25 mg tablet 1 tab PO DAILY venlafaxine 75 mg capsule,extended release 24hr 75 mg PO DAILY lorazepam [Ativan] 0.5 mg tablet 0.5 mg PO TID PRN PRN (Reason: Anxiety) Primary Care Provider: Rivera Forbes Referrals: Uriel Monique MD [Med Staff - Active Staff] - 3-5 Days Rivera Forbes DO [Primary Care Provider] - Disposition Disposition: Home, Self Care
[2021-12-03 19:40] LABS: Absolute Lymphocyte Count 3.01 X10^3/uL (0.83-4.51); Absolute Neutrophil Count 11.5 X10^3/uL (2.0-7.7); Basophil# 0.07 X10^3/uL; Basophil% 0.5 % (0-1); Eosinophil# 0.04 X10^3/uL; Eosinophils% 0.3 % (0-5); Hematocrit 41.9 % (40-54); Lymphocyte # 3.01 X10^3/ul (0.83-4.51); Lymphocyte % 19.4 % (19-41); Mean Corp Hgb Conc 33.4 g/dL (32-36); Mean Corpuscular Hgb 29.7 pg (27.0-32.0); Mean Corpuscular Volume 88.8 fL (80-94); Mean Platelet Vol. 10.2 fl (6.2-12.0); Monocyte# 0.84 X10^3/uL; Monocyte% 5.4 % (0-10); NRBC Flagged by Analyzer 0 % (0-5); Neutrophil # 11.46 X10^3/uL (2.7-7.7); Neutrophil % 73.8 % (47-70); Platelet Count 272 K/mm3 (150-450); RBC Distribution Width SD 42.5 fl (35.1-43.9); Red Blood Count 4.72 M/mm3 (4.6-6.2); White Blood Count 15.5 K/mm3 (4.4-11.0)
[2021-12-03] MEDS: 0.9% Normal Saline 1,000 ML 1000 ML IV (19:41)
[2021-12-03] MEDS: Ondansetron 4 MG/2 ML Vial IV (19:41)
[2021-12-03] MEDS: Ketorolac 15 MG/ML Vial IV (19:41)
[2021-12-03] MEDS: Morphine 4 MG/ML Syringe IV (19:41)
[2021-12-03 19:53] LABS: Anion Gap 7 (5-15); BUN 15 mg/dL (7-18); Calcium,Total 9.1 mg/dL (8.5-10.1); Chloride 105 mmol/L (98-107); Creatinine, Serum 0.94 mg/dL (0.70-1.30); EST Glomerular Filtration Rate 90 mL/min (>60); Est Glom Filt Rate - Afr Amer 108 mL/min (>60); Estimated Creatinine Clearance 90.88 ml/min; Glucose 131 mg/dL (74-106); Potassium 3.8 mmol/L (3.5-5.1); Sodium Level 141 mmol/L (136-145)
[2021-12-03 19:54] LABS: Mucous, Urine 0 SEEN /hpf (<or=2+)
[2021-12-03 19:57] LABS: Color, Urine Yellow (Yellow); Glucose, Dipstick Normal (Normal); Ketone-Dipstick 5 mg/dl (Negative); Leukocyte Esterase-Dipstick Negative /ul (Negative); Nitrite-Dipstick Negative (Negative); Occult Blood-Urine 250 /ul (Negative); Protein-Dipstick 30 mg/dl (Negative); Urine Bilirubin Dipstick Negative (Negative); Urine Clarity Clear (Clear); Urine Urobilinogen 1 mg/dl (Normal)
[2021-12-03 20:05] LABS: Red Blood Cells-Urine 25-50 SEEN /hpf (0-5); White Blood Cells 0-5 SEEN /hpf (0-5)
[2021-12-03 20:06] LABS: Bacteria RARE /hpf (None Seen); Squamous Epithelial Cells - UA 0-5 SEEN /hpf (0-5)
[2021-12-03 20:55] VITALS: BP 137/76; PULSE 75; RESP 15
[2021-12-03] MEDS: HYDROmorphone 0.5 MG/0.5 ML SYRINGE IV (20:55)
== END 2021-12-03 21:49 | disposition home or self-care (01) ==
PROVIDERS: Emergency Provider Emergency Medicine; PCP Family Medicine; Visit Provider Emergency Medicine
DX: N13.2 Hydronephrosis with renal and ureteral calculous obstruction (principal); F41.9 Anxiety disorder, unspecified; F32.A Depression, unspecified; K21.9 Gastro-esophageal reflux disease without esophagitis; I10 Essential (primary) hypertension; Z87.442 Personal history of urinary calculi; Z79.82 Long term (current) use of aspirin; Z79.899 Other long term (current) drug therapy; Z87.891 Personal history of nicotine dependence
CPT/HCPCS: 74176; 80048; 81001; 85025; 96361; 96374; 96375; 99285; J7030; A4216; J2405

== ENCOUNTER 2021-12-04 11:56 | Emergency (ER) | payer OTHER, SELFPAY ==
[2021-12-04 11:57] VITALS: BP 146/76; PULSE 66; RESP 18; TEMP 36.5; O2SAT 100; BMI 40.6
--- NOTE | 2021-12-04 12:18 | EX.ED.DYSGE1 ---
HPI History of Present Illness Chief Complaint: Flank Pain Informant: patient Onset/Context/Timing Onset: Yesterday Context: Sudden Onset Timing: Continuous and Waxes and wanes Quality: aching Location: left flank Current Severity: Severe Maximum Severity: Severe Worsened by: nothing Relieved by: nothing - tried Rx hydrocodone and diclofenac Associated Symptoms Associated Symptoms: nausea Narrative Narrative: Patient seen here yesterday diagnosed with a kidney stone, proximal left ureter 3.4 mm on the scan results, he was prescribed analgesics and Zofran, he is not able to control the pain. Denies any new symptoms, no changes in the location of the pain. [facility] Medical History Alcohol use Anxiety Anxiety and depression Arthritis Arthritis Back pain Back pain Breast lump Depression Difficult intravenous access Difficulty balancing Essential (primary) hypertension Former smoker Gastric reflux Hearing problem History of stress test Inguinal hernia, bilateral Kidney stone Kidney stones Lipoma of left axilla Neuropathic pain Subcutaneous mass Thoracic stomach hernia Wears contact lenses Wears glasses Home Medications aspirin 81 mg tablet,delayed release (Adult Low Dose Aspirin) 81 mg PO DAILY 10/20/19 [History Last Taken Unknown] lisinopril 20 mg-hydrochlorothiazide 25 mg tablet 1 tab PO DAILY 02/07/21 [History Last Taken Unknown] lorazepam 0.5 mg tablet (Ativan) 0.5 mg PO TID PRN PRN Anxiety 12/03/21 [History Last Taken Unknown] ondansetron 4 mg disintegrating tablet 4 mg PO Q8H PRN nausea and vomiting #10 tabs 12/03/21 [Rx Last Taken Unknown] oxycodone-acetaminophen 5 mg-325 mg tablet (Percocet) 1 tab PO Q6H PRN pain 3 days #10 tabs 12/03/21 [Rx Last Taken Unknown] tamsulosin 0.4 mg capsule (Flomax) 0.4 mg PO DAILY #10 caps 12/03/21 [Rx Last Taken Unknown] venlafaxine 75 mg capsule,extended release 24 hr 75 mg PO DAILY 12/03/21 [History Last Taken Unknown] oxycodone-acetaminophen 5 mg-325 mg tablet 1 - 2 tab PO Q4H PRN Pain 2 days #24 TABLETS 12/04/21 [Rx Last Taken Unknown] Allergy/AdvReac Type Severity Reaction Status Date / Time povidone-iodine Allergy Intermediate rash Verified 12/04/21 11:59 [From Betadine] Family History Grandmother Breast cancer Father Diabetes Kidney disease Uncle Kidney disease Grandfather CVA (cerebral vascular accident) Grandfather CVA (cerebral vascular accident) Other Cancer Heart disease Surgical History History of gastric surgery History of left heart catheterization (12/03/18) History of tonsillectomy S/P excision of lipoma Social History household members: spouse and children Smoking Status: Former smoker how long ago did patient quit smoking: MAY 2018 alcohol intake: current alcohol intake frequency: a few times a week Alcohol type: beer substance use type: does not use additional social history: DOES USE IBUPROFEN DOES NOT USE ASPIRIN ROS ROS ED Constitutional Constitutional ED: Denies chills or fever(s) Eyes Eyes: Denies change in vision or diplopia ENT ENT ED: Denies rhinorrhea or sore throat Cardiovascular Cardiovascular: Denies chest pain or palpitations Respiratory/Chest Respiratory/Chest: Denies cough or dyspnea Gastrointestinal Gastrointestinal: Reports abdominal pain and nausea; Denies diarrhea or vomiting Genitourinary Genitourinary ED: Denies dysuria or hematuria Musculoskeletal Musculoskeletal: Reports back pain; Denies neck pain Integumentary Denies abscess or rash Neurologic Neurologic: Denies headache(s), paresthesias or weakness Psychiatric Psychiatric: Denies anxiety or suicidal thoughts EXAM Physical Exam Const Vital Signs: 12/04/21 11:57 Temperature 97.7 F L Temperature Source Temporal Pulse Rate 66 Respiratory Rate 18 Blood Pressure 146/76 H Blood Pressure Mean 99 Pulse Ox 100 Oxygen Delivery Method Room Air Positive well nourished, well developed and obese General Appearance ED: well developed and NAD Nutritional Appearance: obese HEENT Reports moist mucous membranes normocephalic and atraumatic Eyes PERRL and EOMs intact bilaterally Neck full ROM and supple Resp normal respiratory effort and clear to auscultation bilaterally Cardio regular rate, regular rhythm and no murmurs GI non-distended GI Narrative: Mild diffuse left-sided abdominal tenderness without guarding or rebound no pulsatile mass Auscultation: normoactive bowel sounds Palpation: soft Back/Spine Back/Spine Narrative: Left CVA tenderness General Back: other FROM Extremity normal to inspection General Extremety ED: Negative for edema, pulses abnormal or tenderness General Extremity: Negative for edema or pulses abnormal Neuro oriented x3, CN's II-XII intact bilaterally and no sensory deficits noted Sensorium / Orientation: awake and alert Motor Exam: strength 5/5 throughout Skin no rashes or lesions noted and no wounds MDM MDM MDM Narrative Medical decision making narrative: Urinalysis was re-obtained, shows no evidence of infection. He was given morphine, this really helped with his pain, although it started to come back later on. Plan will be to retreat this and increase the frequency with which he is able to take the Percocet which he was already prescribed. It was prescribed 1 tablet every 6 hours, that clearly was not helping and he will need to take 2 at a time. He already has diclofenac now as well, and filters. Expectant management indicated for this size stone. Lab Data Attestation: I reviewed the patient's lab results. Labs: Laboratory Results - last 24 hr 12/04/21 13:19 Urine Color Yellow Urine Clarity Clear Urine pH 6.0 Ur Specific [place] 1.025 Urine Protein 15 H Urine Glucose (UA) Normal Urine Ketones Negative Urine Occult Blood 150 H Urine Nitrite Negative Urine Bilirubin Negative Urine Urobilinogen Normal Ur Leukocyte Esterase Negative Urine RBC 0 SEEN Urine WBC 0 SEEN Ur Squamous Epith Cells 0 SEEN Urine Bacteria 0 SEEN Urine Mucus 0 SEEN Discharge Plan Triage Chief Complaint: Flank Pain ED Provider: Price Moore Dx/Rx/DC Orders Clinical Impression: Renal colic on left side, Ureterolithiasis Instructions: ED Kidney Stone w/ Colic Prescriptions: New oxycodone-acetaminophen [oxycodone-acetaminophen] 5-325 mg tablet 1 - 2 tab PO Q4H PRN (Reason: Pain) 2 Days Qty: 24 0RF No Action aspirin [Adult Low Dose Aspirin] 81 mg tablet,delayed release (DR/EC) 81 mg PO DAILY lisinopril-hydrochlorothiazide 20-25 mg tablet 1 tab PO DAILY venlafaxine 75 mg capsule,extended release 24hr 75 mg PO DAILY lorazepam [Ativan] 0.5 mg tablet 0.5 mg PO TID PRN PRN (Reason: Anxiety) ondansetron 4 mg tablet,disintegrating 4 mg PO Q8H PRN (Reason: nausea and vomiting) Qty: 10 0RF tamsulosin [Flomax] 0.4 mg capsule 0.4 mg PO DAILY Qty: 10 0RF oxycodone-acetaminophen [Percocet] 5-325 mg tablet 1 tab PO Q6H PRN (Reason: pain) 3 Days Qty: 10 0RF Primary Care Provider: Rivera Forbes Referrals: Uriel Monique MD [Med Staff - Active Staff] - 1 Week if not improving Rivera Forbes DO [Primary Care Provider] - Disposition Disposition: Home, Self Care
[2021-12-04] MEDS: Morphine 4 MG/ML Syringe IV ×2 (12:27→15:03)
[2021-12-04 13:00] VITALS: RESP 18
[2021-12-04 13:22] LABS: Bacteria 0 SEEN /hpf (None Seen); Mucous, Urine 0 SEEN /hpf (<or=2+); Red Blood Cells-Urine 0 SEEN /hpf (0-5); Squamous Epithelial Cells - UA 0 SEEN /hpf (0-5); White Blood Cells 0 SEEN /hpf (0-5)
[2021-12-04 13:25] LABS: Color, Urine Yellow (Yellow); Glucose, Dipstick Normal (Normal); Ketone-Dipstick Negative (Negative); Leukocyte Esterase-Dipstick Negative /ul (Negative); Nitrite-Dipstick Negative (Negative); Occult Blood-Urine 150 /ul (Negative); Protein-Dipstick 15 mg/dl (Negative); Specific Gravity, Urine 1.025 (1.002-1.030); Urine Bilirubin Dipstick Negative (Negative); Urine Clarity Clear (Clear); Urine Urobilinogen Normal (Normal)
[2021-12-04 14:00] VITALS: RESP 18
[2021-12-04 14:47] VITALS: RESP 18
[2021-12-04 15:00] VITALS: RESP 18
== END 2021-12-04 15:09 | disposition home or self-care (01) ==
PROVIDERS: Emergency Provider Emergency Medicine; PCP Family Medicine; Visit Provider Emergency Medicine
DX: N20.0 Calculus of kidney (principal); Z68.41 Body mass index [BMI] 40.0-44.9, adult; F41.9 Anxiety disorder, unspecified; F32.A Depression, unspecified; I10 Essential (primary) hypertension; Z87.891 Personal history of nicotine dependence; K21.9 Gastro-esophageal reflux disease without esophagitis; Z87.442 Personal history of urinary calculi; Z79.82 Long term (current) use of aspirin; Z79.899 Other long term (current) drug therapy; E66.9 Obesity, unspecified
CPT/HCPCS: 81001; 96374; 96376; 99283; A4216

== ENCOUNTER → 2021-12-27 | Outpatient (CLI) | payer OTHER, SELFPAY ==
[2021-12-27 10:32] LABS: PSA,Total - Annual Screen 0.55 ng/mL (0.00-4.00)
== END | disposition home or self-care (01) ==
LOC: MTLAB 08:23
PROVIDERS: PCP Family Medicine; Referring Provider Urology; Visit Provider Urology
DX: N20.1 Calculus of ureter (principal)
CPT/HCPCS: 36415; 84153; G0103

== ENCOUNTER → 2022-06-30 | Outpatient (CLI) | payer OTHER, SELFPAY | END | disposition home or self-care (01) | PROVIDERS: PCP Family Medicine; Visit Provider Family Medicine | DX: R30.0 Dysuria (principal) | CPT/HCPCS: 87086 ==

== ENCOUNTER → 2022-10-26 | Outpatient (CLI) | payer OTHER, SELFPAY ==
[2022-10-26 15:22] LABS: Absolute Lymphocyte Count 3.43 X10^3/uL (0.83-4.51); Absolute Neutrophil Count 5.7 X10^3/uL (2.0-7.7); Basophil# 0.07 X10^3/uL; Basophil% 0.7 % (0-1); Eosinophil# 0.09 X10^3/uL; Eosinophils% 0.9 % (0-5); Hematocrit 42.4 % (40-54); Hemoglobin 13.6 g/dL (13.0-16.5); Lymphocyte # 3.43 X10^3/ul (0.83-4.51); Lymphocyte % 34.4 % (19-41); Mean Corp Hgb Conc 32.1 g/dL (32-36); Mean Corpuscular Hgb 29.2 pg (27.0-32.0); Mean Corpuscular Volume 91.2 fL (80-94); Mean Platelet Vol. 10.8 fl (6.2-12.0); Monocyte# 0.62 X10^3/uL; Monocyte% 6.2 % (0-10); NRBC Flagged by Analyzer 0 % (0-5); Neutrophil # 5.67 X10^3/uL (2.7-7.7); Neutrophil % 56.9 % (47-70); Platelet Count 278 K/mm3 (150-450); RBC Distribution Width CV 12.8 % (11.6-14.6); RBC Distribution Width SD 42.3 fl (35.1-43.9); Red Blood Count 4.65 M/mm3 (4.6-6.2)
[2022-10-26 15:58] LABS: Vitamin B12 357 pg/mL (211-911)
[2022-10-26 15:59] LABS: AST(SGOT) 22 U/L (15-37); Alanine Aminotransfer ALT/SGPT 36 U/L (16-61); Albumin, Serum 3.4 g/dL (3.2-5.0); Alkaline Phosphatase 70 U/L (45-117); Anion Gap 2 (5-15); BUN 13 mg/dL (7-18); BUN/Creat Ratio 15.8 RATIO (10-20); Calcium,Total 8.4 mg/dL (8.5-10.1); Chloride 107 mmol/L (98-107); Creatinine, Serum 0.82 mg/dL (0.70-1.30); EST Glomerular Filtration Rate 104 mL/min (>60); Est Glom Filt Rate - Afr Amer 126 mL/min (>60); Globulin 3.5 g/dL (2.2-4.2); Glucose 123 mg/dL (74-106); Potassium 4.1 mmol/L (3.5-5.1); Protein, Total 6.9 g/dL (6.4-8.2); Sodium Level 139 mmol/L (136-145); Thyroid Stim Hormone (TSH) 0.76 uIU/mL (0.358-3.74)
== END | disposition home or self-care (01) ==
LOC: BFHLAB 13:14
PROVIDERS: PCP Family Medicine; Referring Provider Family Medicine; Visit Provider Family Medicine
DX: I10 Essential (primary) hypertension (principal); R53.83 Other fatigue
CPT/HCPCS: 36415; 80053; 82306; 82607; 84403; 84443; 85025

== ENCOUNTER → 2022-12-29 | Outpatient (CLI) | payer OTHER, SELFPAY ==
[2022-12-29 12:41] LABS: PSA,Total - Annual Screen 0.48 ng/mL (0.00-4.00)
== END | disposition home or self-care (01) ==
LOC: LAB 11:19
PROVIDERS: PCP Family Medicine; Referring Provider Urology; Visit Provider Urology
DX: N40.1 Benign prostatic hyperplasia with lower urinary tract symptoms (principal)
CPT/HCPCS: 36415; 84153; G0103

== ENCOUNTER → 2023-05-18 | Outpatient (CLI) | payer OTHER, SELFPAY ==
--- NOTE | 2023-05-18 15:13 | US_ITS ---
STUDY: SUPERFICIAL ULTRASOUND - RIGHT CERVICAL REGION. REASON FOR EXAM: Male, 52 years old. R22.1 Localized swelling, mass and lump, neck TECHNIQUE: A superficial ultrasound was performed with real-time and static negron-scale imaging. COMPARISON: Comparison is made with prior study November 07, 2017. FINDINGS: The right cervical region was examined with ultrasound. There is a 2.3 cm x 2 cm x 1 cm fat-containing lymph node suggestive of a benign lymph node. US/Head/Neck Soft Tissue IMPRESSION: The palpable lump corresponds to a 2.3 cm x 2 cm x 1 cm benign appearing lymph node. Electronically Signed: Bharat Mcbride MD at 15:55 EST ,
--- OUTSIDE RECORDS SUMMARY | 2023-05-18 18:02 | XMS RPT_ITS | CCD ---
Author Name Unknown Address [address] [place] [address] Organization [facility] Care Team Providers Care Tariff Expert Name Role Phone VINI CABRAL PAC Attending Unavailable MISHA, VINI PAC Primary Care Unavailable MISHA, VINI PAC Admitting Unavailable Results Test Name Value Interpretation Reference Range Facil ity Encounters Encounter Date Encounter Type Care Provider Facility Start: 12-09-2019 End: 12-09-2019 Patient encounter procedure VINI PAC MISHA [facility] Summary Purpose Family History No Family History Records FoundNo Family History Records FoundNo Family History Records Found Advance Directives No Advanced Directives Records FoundNo Advanced Directives Records FoundNo Advanced Directives Records Found Additional Source Comments (unrecognized sect ion and content) No Status Records FoundNo Status Records FoundNo Status Records Found INFORMATION SOURCE (unrecogn ized section and content) DATE CREATED AUTHOR AUTHOR'S ORGANIZ ATION 01/14/2020 [facility] DATE CREATED AUTHOR AUTHOR'S ORGANIZ ATION 01/30/2020 [facility] FOR RECORDS PERTAINING TO PATIENTS WHO ARE OR HAVE BEEN ENROLLED IN A CHEMICAL DEPENDENCY/SUBSTANCEABUSE PROGRAM, SOME INFORMATION MAY BE OMITTED. This clinical summary was aggregated from multiple sources. Caution should be exercised in using it in the provision of clinical care. This summary normalizes information from multiple sources, and as a consequence, information in this document may materially change the coding, format and clinical context of patient data. In addition, data may be omitted in some cases. CLINICAL DECISIONS SHOULD BE BASED ON THE PRIMARY CLINICAL RECORDS. [employer] provides no warranty or guarantee of the accuracy or completeness of information in this document.
== END | disposition home or self-care (01) ==
PROVIDERS: PCP Family Medicine; Referring Provider Family Medicine; Visit Provider Family Medicine
DX: R22.1 Localized swelling, mass and lump, neck (principal)
CPT/HCPCS: 76536

== ENCOUNTER → 2023-06-20 | Outpatient (CLI) | payer OTHER, SELFPAY ==
--- NOTE | 2023-06-20 09:15 | CYSPIN_PTH ---
PATIENT: ARI DE ANDA LOC: LAB U#:[id number] AGE/SX: 52/M ROOM: RE06/20/[address]: Dr. Rivera Forbes DO : 1970 BED: DIS: 06/20/2023 SPEC #: [id number] RECD: 06/20/23 13:57 STATUS: ADAM PATRICK #: [id number] KO: 06/20/23 09:[address]: Rivera Forbes DEPT: CYTOLOGY RECD BY: Izabela Coker Tissues: Urine Procedures: Pap Stain (control) Special Stain Group II Cytospin Fluid HEADER OPERATION: Not noted PRE-OP DIAGNOSIS: Other microscopic hematuria TISSUE SUBMITTED: Urine for cytology DIAGNOSIS CYTOLOGY Urine for cytology (cytospin): Negative for high grade urothelial carcinoma ,NHGUC (Melissa System Category II) AM/mr 06/21/2023 COMMENT The Melissa System for urine cytology diagnostic categorization was used in the evaluation of this case. CYTOLOGY STUDY Slides are reviewed. CYTOLOGY GROSS Received is 7 ml of dark yellow fluid labeled with the patient's name and and designated per the requisition as urine. Submitted for cytology preparation. mr 06/20/23 TC:5 CPT: 92002
[2023-06-20 09:51] LABS: Absolute Lymphocyte Count 2.62 X10^3/uL (0.83-4.51); Absolute Neutrophil Count 5.3 X10^3/uL (2.0-7.7); Basophil# 0.08 X10^3/uL; Basophil% 0.9 % (0-1); Eosinophil# 0.12 X10^3/uL; Eosinophils% 1.4 % (0-5); Hematocrit 41.6 % (40-54); Hemoglobin 14.1 g/dL (13.0-16.5); Lymphocyte # 2.62 X10^3/ul (0.83-4.51); Lymphocyte % 30.1 % (19-41); Mean Corp Hgb Conc 33.9 g/dL (32-36); Mean Corpuscular Hgb 29.1 pg (27.0-32.0); Mean Platelet Vol. 10.3 fl (6.2-12.0); Monocyte% 5.8 % (0-10); NRBC Flagged by Analyzer 0 % (0-5); Neutrophil # 5.27 X10^3/uL (2.7-7.7); Neutrophil % 60.6 % (47-70); Platelet Count 293 K/mm3 (150-450); RBC Distribution Width CV 12.9 % (11.6-14.6); RBC Distribution Width SD 40.3 fl (35.1-43.9); Red Blood Count 4.84 M/mm3 (4.6-6.2); White Blood Count 8.7 K/mm3 (4.4-11.0)
[2023-06-20 10:06] LABS: Color, Urine Yellow (Yellow); Glucose, Dipstick Normal (Normal); Ketone-Dipstick Negative (Negative); Leukocyte Esterase-Dipstick Negative /ul (Negative); Nitrite-Dipstick Negative (Negative); Occult Blood-Urine 10 /ul (Negative); Protein-Dipstick 15 mg/dl (Negative); Specific Gravity, Urine 1.015 (1.002-1.030); Urine Bilirubin Dipstick Negative (Negative); Urine Clarity Clear (Clear); Urine Urobilinogen Normal (Normal)
[2023-06-20 10:12] LABS: Cholesterol 218 mg/dL (200); High Density Lipoprotein 49 mg/dL; Triglycerides 155 mg/dL; Very Low Density Lipoprotein 31 mg/dL (5-40)
[2023-06-20 10:18] LABS: Hemoglobin A1c 5.9 % (3.8-5.6)
[2023-06-20 13:26] LABS: Cytology, Body Fluid / CSF SEE PATHOLOGY REPORT
== END | disposition home or self-care (01) ==
LOC: LAB 09:12
PROVIDERS: PCP Family Medicine; Referring Provider Family Medicine; Visit Provider Family Medicine
DX: Z00.00 Encounter for general adult medical examination without abnormal findings (principal); I10 Essential (primary) hypertension; R31.29 Other microscopic hematuria
CPT/HCPCS: 36415; 80061; 81002; 83036; 85025; 88108; 88313

== ENCOUNTER → 2023-07-18 | Outpatient (CLI) | payer OTHER, SELFPAY ==
--- NOTE | 2023-07-18 07:05 | CT_ITS ---
STUDY: CT SOFT TISSUE NECK WITH CONTRAST REASON FOR EXAM: Male, 52 years old. 3 month history of a right cervical mass. RADIATION DOSAGE (If Supplied By Facility): CTDIvol = ( 3.02 ) mGy, DLP = ( 105.71 ) mGycm TECHNIQUE: The patient was scanned in a multi-detector CT scanner. High resolution transaxial imaging was performed following intravenous administration of IV 75mL [id number]-370. Sagittal and coronal images were reconstructed. Individualized dose optimization techniques were used for this CT. COMPARISON: Comparison is made with prior sonogram of the right cervical region dated May 18, 2023. FINDINGS: The right lobe of the parotid gland is larger than the left. Minimal increased markings in the surrounding fat. Right peritonitis should be ruled out. The palpable right cervical region corresponds to a 1.2 cm x 1 cm fat-containing lymph node. Normal bilateral director of staff development spaces. Normal bilateral parapharyngeal spaces. Normal bilateral carotid spaces. Normal bilateral sublingual and submandibular glands and spaces. Normal visualized nasopharynx. Normal retropharyngeal space. Normal perivertebral space. Normal visualized bilateral faucial tonsils. The visualized tongue, tongue base and oropharynx are normal. The visualized cervical lymph nodes (levels I-) are within normal size limits, and maintain normal morphology. There is no demonstrated solid or cystic mass lesion. There is no abnormal contrast enhancement. Normal epiglottis, bilateral vallecula and hypopharynx. The pre-epiglottic and paraglottic adipose spaces are normal. Normal visualized bilateral piriform sinuses, aryepiglottic folds, vocal cords, and arytenoid-cricoid articulations. Normal subglottic trachea. Normal bilateral lobes of the thyroid gland. Normal visualized pulmonary apices. Normal visualized paranasal sinuses. There is mild degenerative changes of the cervical spine. CT/Soft Tissue Neck WITH Contrast IMPRESSION: Asymmetrical enlargement of the right parotid gland. Benign-appearing lymph node corresponding to the right palpable cervical abnormality. Electronically Signed: Bharat Mcbride MD at 14:21 EDT ,
[2023-07-18 07:32] LABS: CREATININE FINGERSTICK < 1.0 mg/dL (0.70-1.30); EGFR FINGERSTICK > 60.0000 mL/min (>60)
== END | disposition home or self-care (01) ==
PROVIDERS: PCP Family Medicine; Referring Provider Otolaryngology Otolaryngology/Facial Plastic Surgery; Visit Provider Otolaryngology Otolaryngology/Facial Plastic Surgery
DX: R22.1 Localized swelling, mass and lump, neck (principal)
CPT/HCPCS: 70491; Q9967

== ENCOUNTER → 2024-04-07 | Outpatient (CLI) | payer OTHER, SELFPAY ==
[2024-04-09 14:10] LABS: AST(SGOT) 15 U/L (15-37); Alanine Aminotransfer ALT/SGPT 33 U/L (16-61); Albumin, Serum 3.3 g/dL (3.2-5.0); Alkaline Phosphatase 83 U/L (45-117); Anion Gap 9 (5-15); BUN 15 mg/dL (7-18); BUN/Creat Ratio 17.6 RATIO (10-20); Calcium,Total 8.5 mg/dL (8.5-10.1); Chloride 104 mmol/L (98-107); Creatinine, Serum 0.85 mg/dL (0.70-1.30); EST Glomerular Filtration Rate 99 mL/min (>60); Est Glom Filt Rate - Afr Amer 120 mL/min (>60); Globulin 3.3 g/dL (2.2-4.2); Glucose 131 mg/dL (74-106); PSA,Total - Annual Screen 0.49 ng/mL (0.00-4.00); Potassium 3.6 mmol/L (3.5-5.1); Protein, Total 6.6 g/dL (6.4-8.2); Sodium Level 137 mmol/L (136-145)
== END | disposition home or self-care (01) ==
LOC: BFHLAB 09:47 → LAB.FUTURE 10:11 → BFHLAB 04-09 09:40
PROVIDERS: PCP Family Medicine; Visit Provider Family Medicine
DX: Z12.5 Encounter for screening for malignant neoplasm of prostate (principal); I10 Essential (primary) hypertension
CPT/HCPCS: 36415; 80053; 84153; G0103

== ENCOUNTER → 2024-09-23 | Outpatient (CLI) | payer OTHER, SELFPAY ==
[2024-09-23 13:25] LABS: Hematocrit 41.1 % (40-54); Hemoglobin 13.9 g/dL (13.0-16.5); Immature Granulocytes Count 0.090 X10^3/uL (0.0-0.0); Mean Corp Hgb Conc 33.8 g/dL (32-36); Mean Corpuscular Volume 85.8 fL (80-94); Mean Platelet Vol. 10.2 fl (6.2-12.0); NRBC Flagged by Analyzer 0 % (0-5); Platelet Count 279 K/mm3 (150-450); RBC Distribution Width CV 13.1 % (11.6-14.6); RBC Distribution Width SD 40.2 fl (35.1-43.9); Red Blood Count 4.79 M/mm3 (4.6-6.2); White Blood Count 11.6 K/mm3 (4.4-11.0)
[2024-09-23 14:28] LABS: AST(SGOT) 24 U/L (<=37); Alanine Aminotransfer ALT/SGPT 36 U/L (<=46); Albumin, Serum 4.0 g/dL (3.5-5.0); Alkaline Phosphatase 90 U/L (40-129); Anion Gap 11 (5-15); BUN 11 mg/dL (4-19); BUN/Creat Ratio 13.1 RATIO (10-20); CORTISOL AM 8.94 ug/dL (6.02-18.40); Calcium,Total 8.8 mg/dL (7.6-11.0); Carbon Dioxide 24.2 mmol/L (21.0-32.0); Chloride 104 mmol/L (98-108); Cholesterol 204 mg/dL (<=200); Globulin 2.9 g/dL (2.2-4.2); Glucose 126 mg/dL (70-99); Low Density Lipoprotein Calc. 120 mg/dL; Potassium 3.6 mmol/L (3.3-5.1); Triglycerides 179 mg/dL; Very Low Density Lipoprotein 36 mg/dL (5-40); Vitamin B12 708 pg/mL (180-914); Vitamin D,25 Hydroxy 38.2 ng/mL (30-100); cholesterol:hdl ratio screen 4.21
== END | disposition home or self-care (01) ==
LOC: BFHLAB 09:24 → LAB 10:53
PROVIDERS: PCP Family Medicine; Referring Provider Family Medicine; Visit Provider Family Medicine
DX: Z00.01 Encounter for general adult medical examination with abnormal findings (principal); R53.83 Other fatigue; R63.5 Abnormal weight gain
CPT/HCPCS: 36415; 80053; 80061; 82306; 82533; 82607; 84443; 85025

== ENCOUNTER → 2025-03-09 | Outpatient (CLI) | payer OTHER, SELFPAY ==
--- OUTSIDE RECORDS SUMMARY | 2025-03-09 06:09 | XMS RPT_ITS | CCD ---
Author Organization [facility] Care Team Providers Care Director [employer] Name Role Phone VINI CABRAL PAC Attending Unavailable VINI CABRAL PAC Primary Care Unavailable VINI CABRAL PAC Admitting Unavailable Dr. Rivera Forbes Primary Care Provider Dr. Rivera Forbes Referring Provider Balbina TOM[place], [place] Alyson Spencer Attending Provider Dr. Rivera Forbes Primary Care Provider Sharon Barron Attending Provider Unavailable Rivera Forbes Primary Care Unavailable Rivera Forbes Referring Unavailable Rivera Forbes Attending Unavailable Rivera Forbes Primary Care Unavailable Rivera Forbes Attending Unavailable Rivera Forbes Attending Unavailable Rivera Forbes Primary Care Unavailable Rivera Forbes Referring Unavailable Allergies Allergy Classification Reported Allergen(s) Allergy Type Date of Onset Reaction(s) Facility (10 sources) Povidone-Iodine Drug Allergy 05-19-[address] [facility] (1 source) Povidone-Iodine Drug Allergy 08-22-2022 [facility] Repository Medications Current Medications Medication Drug Class(es) Dates Sig (Normalized) Sig (Original) 8 hr acetaminophen 650 mg extended release oral tablet (5 sources) Start: 08-22-2022 take 650 mg by mouth every eight hours Acetaminophen Active 650 MG PO Q8H August 22, 2022 12:00am acetaminophen 325 mg / oxyCODONE hydrochloride 5 mg oral tablet (20 sources) Opioid Agonist Start: 12-04-2021 take 1 tablet by mouth every four hours Oxycodone-Acetamino phen Active 1 - 2 TABLET PO Q4H 24 2 December 04, 2021 Start: 12-03-2021 take 1 tablet by royer th every six hours Oxycodone-Acetaminophen (Percocet) 5-325 mg tablet Active 1 TABLET PO EVERY 6 HOURS 10 3 December 03, 2021 Start: 04-14-2019 End: 04-21-2019 take 1 tablet by mouth every four hours as needed Oxycodone-Acetaminophen Discontinued 1 TABLET PO EVERY 4 HOURS NEEDED 40 7 April 14, 2019 April 21, 2019 1:08am 40 tabs (forty) aspirin 81 mg delayed release oral tablet (20 sources) Platelet Aggregation Inhibitor, Nonsteroidal Anti-inflammatory Drug Start: 10-20-2019 Aspirin (Adult Lo w Dose Aspirin) 81 mg tablet,delayed release (DR/EC) Active 81 MG PO DAILY October 20, 2019 12:00am Start: 12-02-2018 End: 04-14-2019 take 81 mg by mouth once daily Aspirin Discontinued 81 MG PO DAILY December 02, 2018 12:00am April 14, 2019 12:03pm Start: 04-11-2016 End: 10-01-2017 take 81 mg by mouth once daily Aspirin Discontinued 81 MG PO DAILY April 11, 2016 1:00am October 01, 2017 3:56pm baclofen 5 mg oral tablet (1 source) gamma-Aminobutyric Acid-ergic Agonist Start: 02-07-2021 take 5 mg by mouth every six hours Baclofen Active 5 MG PO EVERY 6 HOURS February 07, 2021 1:00am hydroCHLOROthiazide 25 mg / lisinopril 20 mg oral tablet (20 sources) Thiazide Diuretic, Angiotensin Converting Enzyme Inhibitor Start: 02-07-2021 take 1 tablet by mouth once daily Lisinopril-H ydrochloroth iazide Active 1 TABLET PO DAILY February 07, 2021 1:00am Start: 05-04-2013 End: 02-07-2021 take 1 tablet by mouth once daily Lisinopril-Hydrochlorothiazide Discontin ued 1 TABLET PO DAILY May 04, 2013 1:00am February 07, 2021 3:39pm LORazepam 0.5 mg oral tablet (19 sources) Benzodiazepine Start: 03-26-2021 End: 12-03-2021 take 1 tablet by mouth three times daily as needed Lorazepam (Ativan) 0.5 mg tablet Active 0.5 MG PO 3 TIMES DAILY NEEDED December 03, 2021 7:17pm ondansetron 4 mg disintegrating oral tablet (9 sources) Serotonin-3 Receptor Antagonist Start: 12-03-2021 take 4 mg by mouth every eight hours Ondansetron Active 4 MG PO Q8H December 03, 2021 12:00am tamsulosin hydrochloride 0.4 mg oral capsule (9 sources) alpha-Adrenergic Saud Start: 12-03-2021 take 1 capsule by mouth once daily Tamsulosin (Flomax) 0.4 mg capsule Active 0.4 MG PO DAILY December 03, 2021 12:00am 24 hr venlafaxine 75 mg extended release oral capsule (20 sources) Serotonin and Norepinephrine Reuptake Inhibitor Start: 08-22-2022 take 75 mg by mouth every other day Venlafaxine Active 75 MG PO .QOD August 22, 2022 3:05pm Start: 12-03-2021 End: 08-22-2022 take 75 mg by mouth once daily Venlafaxine Discontinue d 75 MG PO DAILY December 03, 2021 12:00am August 22, 2022 3:07pm Start: 12-02-2018 End: 02-07-2021 take 150 mg by mouth once daily Venlafaxine Discontinued 150 MG PO DAILY December 02, 2018 12:00am February 07, 2021 3:40pm Completed/Discontinued Medications Medication Drug Class(es) Dates Sig (Normalized) Sig (Original) acetaminophen 325 mg / HYDROcodone bitartrate 5 mg oral tablet (20 sources) Opioid Agonist Start: 05-05-2021 End: 05-10-2021 take 1 tablet by mouth every six hours Hydrocodone-Acetamin ophen Discontinued 1 TABLET PO EVERY 6 HOURS 2 May 05, 2021 May 10, 2021 1:57pm amoxicillin 875 mg / clavulanate 125 mg oral tablet (10 sources) Penicillin-class Antibacterial Start: 10-01-2017 End: 12-02-2018 Amoxicillin-Pot Clavulanate Discontinued PO 14 7 October 01, 2017 12:00am December 02, 2018 4:44pm cefadroxil 500 mg oral capsule (10 sources) Cephalosporin Antibacterial Start: 04-14-2019 End: 05-02-2019 take 500 mg by mouth twice daily Cefadroxil Discontinued 500 MG PO TWICE A DAY April 14, 2019 1:00am May 02, 2019 10:15am cyclobenzaprine hydrochloride 10 mg oral tablet (20 sources) Muscle Relaxant Start: 02-19-2019 End: 07-02-2020 Cyclobenzaprine Discontinued 10 MG PO .PRN February 19, 2019 1:00am July 02, 2020 8:54am Start: 10-01-2017 End: 12-02-2018 take 10 mg by mouth once daily Cyclobenzaprine Discontinued 10 MG PO THREE TIMES A DAY October 01, 2017 12:00am December 02, 2018 4:44pm To be taken only after work hours on work days. docusate sodium 100 mg oral capsule (10 sources) Start: 04-14-2019 End: 05-02-2019 take 100 mg by mouth twice daily Docusate Sodium Discontinued 100 MG PO TWICE A DAY 60 April 14, 2019 1:00am May 02, 2019 10:15am gabapentin 100 mg oral capsule (20 sources) Anti-epileptic Agent Start: 05-10-2021 End: 05-24-2021 take 100 mg by mouth three times daily Gabapentin Discontinued 100 MG PO THREE TIMES A DAY 42 14 May 10, 2021 1:00am May 24, 2021 1:03am Start: 02-19-2019 End: 07-02-2020 Gabapentin Discontinued 300 MG PO .PRN February 19, 2019 1:00am July 02, 2020 8:54am ibuprofen 800 mg oral tablet (20 sources) Nonsteroidal Anti-inflammatory Drug Start: 02-19-2019 End: 04-14-2019 Ibuprofen Discontinued 800 MG PO .PRN February 19, 2019 1:00am April 14, 2019 12:03pm Start: 10-01-2017 End: 12-02-2018 take 200 mg by mouth three to four times daily Ibuprofen Discontinued 200 MG PO 3 to 4 times per day October 01, 2017 12:00am December 02, 2018 4:44pm Methylprednisolone (10 sources) Corticosteroid Start: 10-09-2019 End: 10-20-2019 Methylprednisolone Discontin ued 0 PO per package directions October 08, 2019 11:00pm October 20, 2019 7:21am PO PER PKG DIR Start: 10-09-2019 End: 10-20-2019 Methylprednisolone Discontin ued 0 PO per package directions October 09, 2019 12:00am October 20, 2019 8:21am PO PER PKG DIR oxyCODONE hydrochloride 5 mg oral tablet (10 sources) Opioid Agonist Start: 12-03-2018 End: 12-07-2018 take 5 mg by mouth every twelve hours as needed Oxycodone Discontinued 5 MG PO EVERY 12 HOURS NEEDED 6 3 December 03, 2018 December 07, 2018 12:10am promethazine hydrochloride 25 mg oral tablet (10 sources) Phenothiazine Start: 04-14-2019 End: 05-02-2019 take 25 mg by mouth four times daily as needed Promethazine Discontinued 25 MG PO 4 TIMES DAILY NEEDED April 14, 2019 12:03pm May 02, 2019 10:15am tiZANidine 2 mg oral capsule (10 sources) Central alpha-2 Adrenergic Agonist Start: 02-19-2019 End: 10-20-2019 Tizanidine Discontinued 2 MG PO .PRN February 19, 2019 1:00am October 20, 2019 8:21am Problems Active Problems Problem Classification Problem Date Documented Da te Episodic/Chronic Anxiety disorders (10 sources) Mixed anxiety and depressive disorder; Translations: [Anxiety disorder, unspecified] 04-03-2021 Chronic Calculus of urinary tract (20 sources) Kidney stone; Translations: [Calculus of kidney] 12-12-2021 Episodic Diseases of mouth; excluding dental (10 sources) Sialodocholithiasis ; Translations: [Sialolithiasis] 02-24-2019 Episodic Essential hypertension (10 sources) Essential hypertension; Translations: [Essential (primary) hypertension] 03-14-2021 Chronic Malaise and fatigue (1 source) Other fatigue; Translations: [Other fatigue] Onset: 10-24-2024 Episodic Mycoses (12 sources) Tinea cruris; Translations: [Tinea cruris] Episodic Nonmalignant breast conditions (10 sources) Lump of axillary tail of breast; Translations: [Unspecified lump in axillary tail of the left breast] 05-10-2021 Episodic Nonspecific chest pain (20 sources) Chest pain on exertion; Translations: [Chest pain, unspecified] 12-12-2018 Episodic Other and unspecified benign neoplasm (10 sources) Lipoma of axilla; Translations: [Benign lipomatous neoplasm of skin and subcutaneous tissue of left arm] 03-14-2021 Episodic Other connective tissue disease (10 sources) Neuropathic pain; Translations: [Neuralgia and neuritis, unspecified] 05-19-2021 Episodic Other nervous system disorders (10 sources) Abnormal sensation; Translations: [Other disturbances of skin sensation] 04-14-2019 Episodic Other nutritional; endocrine; and metabolic disorders (1 source) Morbid (severe) obesity due to excess calories; Translations: [Morbid (severe) obesity due to excess calories] Onset: 10-24-2024 Chronic Other skin disorders (10 sources) Mass of subcutaneous tissue; Translations: [Localized swelling, mass and lump, unspecified] 07-02-2020 Episodic Other skin disorders (10 sources) Localized swelling, mass and lump, left upper limb; Translations: [Mass of left axilla] 04-27-2019 Episodic Residual codes; unclassified (1 source) Hypersomnia, unspecified; Translations: [Hypersomnia, unspecified] Onset: 10-24-2024 Chronic Residual codes; unclassified (10 sources) Family history of breast cancer; Translations: [Family history of malignant neoplasm of breast] 04-14-2019 Episodic Screening and history of mental health and substance abuse codes (10 sources) Ex-smoker; Translations: [Personal history of nicotine dependence] 04-14-2019 Episodic Sprains and strains (20 sources) Strain of thoracic region; Translations: [Strain of muscle and tendon of back wall of thorax, initial encounter] 12-12-2018 Episodic Past or Other Problems Problem Classification Problem Date Documented Da te Episodic/Chronic Other screening for suspected conditions (not mental disorders or infectious disease) (6 sources) Patient encounter status; Translations: [Encounter for screening for malignant neoplasm of colon] Onset: 04-30-2024 08-22-2022 Episodic Results Test Name Value Interpretation Reference Range Facility CBC W/Diff, Automatedon 07-0 Absolute Lymph 3.41 X10 3/uL Normal 0.83-4.51 [facility] Comment on above: Performed By: #### L 503.0106, L506.1001, L509.6001, L100.0100, L500.4050, L500.4100, L501.9520 #### [facility] [address] [place], [place], [id number] Absolute Neut 7.2 X10 3/uL Normal 2.0-7.7 [facility] Comment on above: Performed By: #### L 503.0106, L506.1001, L509.6001, L100.0100, L500.4050, L500.4100, L501.9520 #### [facility] [address] [place], [address] Basophils/100 WBC (Bld) 0.8 % Normal 0-1 [facility] Comment on above: Performed By: #### L 503.0106, L506.1001, L509.6001, L100.0100, L500.4050, L500.4100, L501.9520 #### [facility] [address] [place], [address] Eosinophils/100 WBC (Bld) 1.4 % Normal 0-5 [facility] Comment on above: Performed By: #### L 503.0106, L506.1001, L509.6001, L100.0100, L500.4050, L500.4100, [id number] #### [facility] [address] [place], [address] Erythrocyte distribution width (RBC) [Ratio] 13.1 % Normal 11.6-14.6 [facility] Comment on above: Performed By: #### L 503.0106, L506.1001, L509.6001, L100.0100, L500.4050, L500.4100, L501.9520 #### [facility] [address] [place], [address] Hematocrit (Bld) [Volume fraction] 41.1 % Normal 40-54 [facility] Comment on above: Performed By: #### L 503.0106, L506.1001, L509.6001, L100.0100, L500.4050, L500.4100, L501.9520 #### [facility] [address] [place], [address] Hemoglobin (Bld) [Mass/Vol] 13.9 g/dL Normal 13.0-16.5 [facility] Comment on above: Performed By: #### L 503.0106, L506.1001, L509.6001, L100.0100, L500.4050, L500.4100, L501.9520 #### [facility] [address] [place], [address] IG% 0.800 Normal 0.0-0.9 [facility] Comment on above: Result Comment: IG% - Immature Granulocytes (promyelocytes, myelocytes and metamyelocytes) > 1% indicates that a LEFT SHIFT is Present. Performed By: #### L 503.0106, L506.1001, L509.6001, L100.0100, L500.4050, L500.4100, L501.9520 #### [facility] [address] [facility] [place], [address] Lymphocytes/100 WBC (Bld) 29.4 % Normal 19-41 [facility] Comment on above: Performed By: #### L 503.0106, L506.1001, L509.6001, L100.0100, L500.4050, L500.4100, L501.9520 #### [facility] [address] [place], [address] MCH (RBC) [Entitic mass] 29.0 pg Normal 27.0-32.0 [facility] Comment on above: Performed By: #### L 503.0106, L506.1001, L509.6001, L100.0100, L500.4050, L500.4100, L501.9520 #### [facility] [address] [place], [address] MCHC (RBC) [Mass/Vol] 33.8 g/dL Normal 32-36 [facility] Comment on above: Performed By: #### L 503.0106, L506.1001, L509.6001, L100.0100, L500.4050, L500.4100, L501.9520 #### [facility] [address] [place], [address] MCV (RBC) [Entitic vol] 85.8 fL Normal 80-94 [facility] Comment on above: Performed By: #### L 503.0106, L506.1001, L509.6001, L100.0100, L500.4050, L500.4100, L501.9520 #### [facility] [address] [place], [address] Monocytes/100 WBC (Bld) 5.9 % Normal 0-10 [facility] Comment on above: Performed By: #### L 503.0106, L506.1001, L509.6001, L100.0100, L500.4050, L500.4100, L501.9520 #### [facility] [address], [address] Neutrophils/100 WBC (Bld) 61.7 % Normal 47-70 [facility] Comment on above: Performed By: #### L 503.0106, L506.1001, L509.6001, L100.0100, L500.4050, L500.4100, L501.9520 #### [facility] [address] [place], [address] Nucleated RBC (Bld) [#/Vol] 0 10*3/uL Normal 0-5 [facility] Comment on above: Performed By: #### L 503.0106, L506.1001, L509.6001, L100.0100, L500.4050, L500.4100, L501.9520 #### [facility] [address] [place], [address] Platelet mean volume (Bld) [Entitic vol] 10.2 fL Normal 6.2-12.0 [facility] Comment on above: Performed By: #### L 503.0106, L506.1001, L509.6001, L100.0100, L500.4050, L500.4100, L501.9520 #### [facility] [address] [place], [address] Platelets (Bld) [#/Vol] 279 10*3/uL Normal 150-450 [facility] Comment on above: Performed By: #### L 503.0106, L506.1001, L509.6001, L100.0100, L500.4050, L500.4100, L501.9520 #### [facility] [address] [place], [address] RBC (Bld) [#/Vol] 4.79 10*6/uL Normal 4.6-6.2 [facility] Comment on above: Performed By: #### L 503.0106, L506.1001, L509.6001, L100.0100, L500.4050, L500.4100, L501.9520 #### [facility] [address] [place], [address] RDW SD 40.2 fl Normal 35.1-43.9 [facility] Comment on above: Performed By: #### L 503.0106, L506.1001, L509.6001, L100.0100, L500.4050, L500.4100, L501.9520 #### [facility] [address] [place], [address] WBC (Bld) [#/Vol] 11.6 10*3/uL High 4.4-11.0 [facility] Comment on above: Performed By: #### L 503.0106, L506.1001, L509.6001, L100.0100, L500.4050, L500.4100, L501.9520 #### [facility] [address] [place], [address] Comprehensive Metabolic Prof nhon 09-23-2024 Albumin [Mass/Vol] 4.0 g/dL Normal 3.5-5.0 [facility] Comment on above: Performed By: #### L 503.0106, L506.1001, L509.6001, L100.0100, L500.4050, L500.4100, L501.9520 #### [facility] [address] [place], [address] Albumin/Globulin [Mass ratio] 1.4 {ratio} Normal 0.9-2.4 [facility] Comment on above: Performed By: #### L 503.0106, L506.1001, L509.6001, L100.0100, L500.4050, L500.4100, L501.9520 #### [facility] [address] [place], [address] ALK PHOS 90 U/L Normal 40-129 [facility] Comment on above: Performed By: #### L 503.0106, L506.1001, L509.6001, L100.0100, L500.4050, L500.4100, L501.9520 #### [facility] [address] [place], [address] ALT [Catalytic activity/Vol] 36 U/L Normal <=46 [facility] Comment on above: Performed By: #### L 503.0106, L506.1001, L509.6001, L100.0100, L500.4050, L500.4100, L501.9520 #### [facility] [address] [place], [address] AST [Catalytic activity/Vol] 24 U/L Normal <=37 [facility] Comment on above: Performed By: #### L 503.0106, L506.1001, L509.6001, L100.0100, L500.4050, L500.4100, L501.9520 #### [facility] [address] [place], [address] Bilirubin [Mass/Vol] 0.47 mg/dL Normal 0.00-1.30 [facility] Comment on above: Performed By: #### L 503.0106, L506.1001, L509.6001, L100.0100, L500.4050, L500.4100, L501.9520 #### [facility] [address] [place], [address] BUN/CRE 13.1 RATIO Normal 10-20 [facility] Comment on above: Performed By: #### L 503.0106, L506.1001, L509.6001, L100.0100, L500.4050, L500.4100, L501.9520 #### [facility] [address] [place], [address] Calcium [Mass/Vol] 8.8 mg/dL Normal 7.6-11.0 [facility] Comment on above: Performed By: #### L 503.0106, L506.1001, L509.6001, L100.0100, L500.4050, L500.4100, L501.9520 #### [facility] [address] [place], [address] Chloride [Moles/Vol] 104 mmol/L Normal 98-108 [facility] Comment on above: Performed By: #### L 503.0106, L506.1001, L509.6001, L100.0100, L500.4050, L500.4100, L501.9520 #### [facility] [address] [place], [address] CO2 [Moles/Vol] 24.2 mmol/L Normal 21.0-32.0 [facility] Comment on above: Performed By: #### L 503.0106, L506.1001, L509.6001, L100.0100, L500.4050, L500.4100, L501.9520 #### [facility] [address] [place], [address] Creatinine [Mass/Vol] 0.83 mg/dL Normal 0.70-1.20 [facility] Comment on above: Performed By: #### L 503.0106, L506.1001, L509.6001, L100.0100, L500.4050, L500.4100, L501.9520 #### [facility] [address] [place], [address] GAP 11 Normal 5-15 [facility] Comment on above: Performed By: #### L 503.0106, L506.1001, L509.6001, L100.0100, L500.4050, L500.4100, L501.9520 #### [facility] [address] [place], [address] GFR/1.73 sq M.predicted among non-blacks MDRD (S/P/Bld) [Vol rate/Area] 103 mL/min/{1.73_m2} Normal >60 [facility] Comment on above: Result Comment: mL/m in/1.73m2 CKD-EPI Creatinine Equation (2020) Performed By: #### L 503.0106, L506.1001, L509.6001, L100.0100, L500.4050, L500.4100, L501.9520 #### [facility] [address] [place], [address] Globulin (S) [Mass/Vol] 2.9 g/dL Normal 2.2-4.2 [facility] Comment on above: Performed By: #### L 503.0106, L506.1001, L509.6001, L100.0100, L500.4050, L500.4100, L501.9520 #### [facility] [address] [place], [address] Glucose [Mass/Vol] 126 mg/dL High 70-99 [facility] Comment on above: Performed By: #### L 503.0106, L506.1001, L509.6001, L100.0100, L500.4050, L500.4100, L501.9520 #### [facility] [address] [place], [address] Potassium [Moles/Vol] 3.6 mmol/L Normal 3.3-5.1 [facility] Comment on above: Performed By: #### L 503.0106, L506.1001, L509.6001, L100.0100, L500.4050, L500.4100, L501.9520 #### [facility] [address] [place], [address] Sodium [Moles/Vol] 139 mmol/L Normal 133-145 [facility] Comment on above: Performed By: #### L 503.0106, L506.1001, L509.6001, L100.0100, L500.4050, L500.4100, L501.9520 #### [facility] [address] [place], [address] T PROT 6.9 g/dL Normal 5.9-8.4 [facility] Comment on above: Performed By: #### L 503.0106, L506.1001, L509.6001, L100.0100, L500.4050, L500.4100, L501.9520 #### [facility] [address] [place], [address] Urea nitrogen [Mass/Vol] 11 mg/dL Normal 4-19 [facility] Comment on above: Performed By: #### L 503.0106, L506.1001, L509.6001, L100.0100, L500.4050, L500.4100, L501.9520 #### [facility] [address] [place], [address] L509.6001on 09-23-2024 CORTISOL 8.94 ug/dL Normal 6.02-18.40 [facility] Comment on above: Performed By: #### L 503.0106, L506.1001, L509.6001, L100.0100, L500.4050, L500.4100, L501.9520 #### [facility] [address] [place], [address] Lipid Profileon 09-23-2024 CHOL:HDL 4.[address] [facility] Comment on above: Performed By: #### L 503.0106, L506.1001, L509.6001, L100.0100, L500.4050, L500.4100, L501.9520 #### [facility] [address] [place], [address] Cholesterol [Mass/Vol] 204 mg/dL High <=200 [facility] Comment on above: Result Comment: Chol esterol level, Desirable <200 mg/dL Borderline high cholesterol 200-239 mg/dL High cholesterol >=240 mg/dL Recommendations of the NCEP Adult Treatment Panel for the following risk-cutoff thresholds for the [place] population. Performed By: #### L 503.0106, L506.1001, L509.6001, L100.0100, L500.4050, L500.4100, L501.9520 #### [facility] [address] [place], [address] Cholesterol in HDL [Mass/Vol] 48 mg/dL Normal [facility] Comment on above: Result Comment: [place]ie onal Cholesterol Education Program (NCEP) guidelines: <40 mg/dL: Low HDL-cholesterol (major risk factor for CHD) >= 60 mg/dL: High HDL-cholesterol (negative risk factor for CHD) HDL-cholesterol is affected by a number of factors, e.g. smoking, exercise, hormones, sex and age. Performed By: #### L 503.0106, L506.1001, L509.6001, L100.0100, L500.4050, L500.4100, L501.9520 #### [facility] [address] [place], [address] Cholesterol in LDL [Mass/Vol] 120 mg/dL Normal [facility] Comment on above: Result Comment: Bord igmasn=767-871 mg/dL Higher Pbev=182 mg/dL or greater Performed By: #### L 503.0106, L506.1001, L509.6001, L100.0100, L500.4050, L500.4100, L501.9520 #### [facility] [address] [place], [place], [id number] (068) Cholesterol in VLDL [Mass/Vol] 36 mg/dL Normal 5-40 [facility] Comment on above: Performed By: #### L 503.0106, L506.1001, L509.6001, L100.0100, L500.4050, L500.4100, L501.9520 #### [facility] [address] [place], [address] Triglyceride [Mass/Vol] 179 mg/dL Normal [facility] Comment on above: Result Comment: The drugs N-Acetylcysteine and Metamizole may falsely depress this assay. Normal range: <150 mg/dL Borderline High: 150-199 mg/dL High: 200-499 mg/dL Very High: >500 mg/dL Performed By: #### L 503.0106, L506.1001, L509.6001, L100.0100, L500.4050, L500.4100, L501.9520 #### [facility] [address] [place], [address] Thyroid Stim Hormone (TSH)on 09-23-2024 TSH 1.100 uIU/mL Normal 0.300-4.200 [facility] Comment on above: Performed By: #### L 503.0106, L506.1001, L509.6001, L100.0100, L500.4050, L500.4100, L501.9520 #### [facility] [address] [place], [address] Vitamin B12on 09-23-2024 Cobalamin (Vitamin B12) [Mass/Vol] 708 pg/mL Normal 180-914 [facility] Comment on above: Performed By: #### L 503.0106, L506.1001, L509.6001, L100.0100, L500.4050, L500.4100, L501.9520 #### [facility] [address] [place], [place], [id number] Vitamin D,25 Hydroxyon 09-23 Vitamin D 25-OH 38.2 ng/mL Normal 30-100 [facility] Comment on above: Result Comment: Kiah min D Status Deficiency: <20 ng/mL (50nmol/L) Insufficiency: 20-30 ng/mL (50-75 nmol/L) Sufficiency: 30-100 ng/mL (75-250 nmol/L) Toxicity: >100 ng/mL (>250 nmol/L) Performed By: #### L 503.0106, L506.1001, L509.6001, L100.0100, L500.4050, L500.4100, L501.9520 #### [facility] [address] [place], [address] Comprehensive Metabolic Prof ilon 04-09-2024 Albumin [Mass/Vol] 3.3 g/dL Normal 3.2-5.0 [facility] Comment on above: Performed By: #### L 500.4050, L501.9910 #### [facility] [address] [place], [address] Albumin/Globulin [Mass ratio] 1.0 {ratio} Normal 0.9-2.4 [facility] Comment on above: Performed By: #### L 500.4050, L501.9910 #### [facility] [address] [place], [address] ALK P 83 U/L Normal 45-117 [facility] Comment on above: Performed By: #### L 500.4050, L501.9910 #### [facility] [address] [place], [address] ALT [Catalytic activity/Vol] 33 U/L Normal 16-61 [facility] Comment on above: Performed By: #### L [id number], [id number] #### [facility] [address] [place], [address] AST [Catalytic activity/Vol] 15 U/L Normal 15-37 [facility] Comment on above: Performed By: #### L 500.4050, L501.9910 #### [facility] [address] [place], [address] Bilirubin [Mass/Vol] 0.50 mg/dL Normal 0.20-1.00 [facility] Comment on above: Result Comment: For patients on eltrombopag therapy, use of Dimension [place] TBIL is not recommended. Performed By: #### L 500.4050, L501.9910 #### [facility] [address] [place], [address] BUN/CRE 17.6 RATIO Normal 10-20 [facility] Comment on above: Performed By: #### L 500.4050, L501.9910 #### [facility] [address] [place], [address] CA,Total 8.5 mg/dL Normal 8.5-10.1 [facility] Comment on above: Performed By: #### L 500.4050, L501.9910 #### [facility] [address] [place], [address] Chloride [Moles/Vol] 104 mmol/L Normal 98-107 [facility] Comment on above: Performed By: #### L 500.4050, L501.9910 #### [facility] [address] [place], [address] CO2 [Moles/Vol] 24.0 mmol/L Normal 21.0-32.0 [facility] Comment on above: Performed By: #### L 500.4050, L501.9910 #### [facility] [address] [place], [address] Creatinine [Mass/Vol] 0.85 mg/dL Normal 0.70-1.30 [facility] Comment on above: Result Comment: The validity of the calculated GFR GFRAA in patients over 70 years has not been determined. Clinical correlation is essential. Performed By: #### L 500.4050, L501.9910 #### [facility] [address] [place], [address] EST GFR - AA 120 mL/min Normal >60 [facility] Comment on above: Result Comment: Afri can [place] GFR Calc Performed By: #### L 500.4050, L501.9910 #### [facility] [address] [place], [address] GAP 9 Normal 5-15 [facility] Comment on above: Performed By: #### L 500.4050, L501.9910 #### [facility] [address] [place], [address] GFR/1.73 sq M.predicted among non-blacks MDRD (S/P/Bld) [Vol rate/Area] 99 mL/min/{1.73_m2} Normal >60 [facility] Comment on above: Result Comment: Non- GFR Calc Performed By: #### L 500.4050, L501.9910 #### [facility] [address] [place], [address] Globulin (S) [Mass/Vol] 3.3 g/dL Normal 2.2-4.2 [facility] Comment on above: Performed By: #### L 500.4050, L501.9910 #### [facility] [address] [place], [address] Glucose [Mass/Vol] 131 mg/dL High 74-106 [facility] Comment on above: Result Comment: Fast ing Glucose result greater than or equal to 126 mg/dL suggests DIABETES MELLITUS per A.D.A. criteria. Performed By: #### L 500.4050, L501.9910 #### [facility] [address] [place], [address] Potassium [Moles/Vol] 3.6 mmol/L Normal 3.5-5.1 [facility] Comment on above: Performed By: #### L 500.4050, L501.9910 #### [facility] [address] [place], [address] Sodium [Moles/Vol] 137 mmol/L Normal 136-145 [facility] Comment on above: Performed By: #### L 500.4050, L501.9910 #### [facility] [address] [place], [address] T PROT 6.6 g/dL Normal 6.4-8.2 [facility] Comment on above: Performed By: #### L 500.4050, L501.9910 #### [facility] [address] [place], [address] Urea nitrogen [Mass/Vol] 15 mg/dL Normal 7-18 [facility] Comment on above: Performed By: #### L 500.4050, L501.9910 #### [facility] [address] [place], [address] PSA,Total - Annual Screenon 04-09-2024 PSA,TOT SCREEN 0.49 ng/mL Normal 0.00-4.00 [facility] Comment on above: Result Comment: This test was performed using the TPSA assay method for the [employer] chemistry system. Values obtained with different assay methods cannot be used interchangably. When changing PSA assays in the course of monitoring a patient, additional sequential testing should be carried out to confirm baseline values. Performed By: #### L 500.4050, L501.9910 #### [facility] [address] [place], [address] Comprehensive Metabolic Prof ilon 04-07-2024 ALB Normal 3.2-5.0 [facility] Comment on above: Result Comment: UTO Performed By: #### L 500.4050 #### [facility] [address] [place], [address] ALK P Normal 45-117 [facility] Comment on above: Result Comment: UTO Performed By: #### L 500.4050 #### [facility] [address] [place], [address] ALT Normal 16-61 [facility] Comment on above: Result Comment: UTO Performed By: #### L 500.4050 #### [facility] [address] [place], [address] AST Normal 15-37 [facility] Comment on above: Result Comment: UTO Performed By: #### L 500.4050 #### [facility] [address] [place], [address] BUN Normal 7-18 [facility] Comment on above: Result Comment: UTO Performed By: #### L 500.4050 #### [facility] [address] [place], [address] BUN/CRE Normal 10-20 [facility] Comment on above: Result Comment: UTO Performed By: #### L 500.4050 #### [facility] [address] [place], [address] CA,Total Normal 8.5-10.1 [facility] Comment on above: Result Comment: UTO Performed By: #### L 500.4050 #### [facility] [address] [place], [address] CL Normal 98-107 [facility] Comment on above: Result Comment: UTO Performed By: #### L 500.4050 #### [facility] [address] [place], [address] CO2 Normal 21.0-32.0 [facility] Comment on above: Result Comment: UTO Performed By: #### L 500.4050 #### [facility] [address] [place], [address] CREAT,SERUM Normal 0.70-1.30 [facility] Comment on above: Result Comment: UTO Performed By: #### L 500.4050 #### [facility] [address] [place], [address] EST GFR Normal >60 [facility] Comment on above: Result Comment: UTO Performed By: #### L 500.4050 #### [facility] [address] [place], [address] EST GFR - AA Normal >60 [facility] Comment on above: Result Comment: UTO Performed By: #### L 500.4050 #### [facility] [address] [place], [address] GAP Normal 5-15 [facility] Comment on above: Result Comment: UTO Performed By: #### L 500.4050 #### [facility] [address] [place], [address] GLU Normal 74-106 [facility] Comment on above: Result Comment: UTO Performed By: #### L 500.4050 #### [facility] [address] [place], [address] Potassium Normal 3.5-5.1 [facility] Comment on above: Result Comment: UTO Performed By: #### L 500.4050 #### [facility] [address] [place], [address] T BILI Normal 0.20-1.00 [facility] Comment on above: Result Comment: UTO Performed By: #### L 500.4050 #### [facility] [address] [place], [address] T PROT Normal 6.4-8.2 [facility] Comment on above: Result Comment: UTO Performed By: #### L [id number] #### [facility] [address] [place], [address] Comprehensive Metabolic Profil Normal 136-145 [facility] Comment on above: Result Comment: UTO Performed By: #### L 500.4050 #### [facility] [address] [place], [address] Basophil percentageOrdered B y: Jose Carlos Mendes on 07-18-2023 Basophil percentage < 1.0 mg/dL 0.70-1.30 [facility] No Panel InformationOrdered By: Jose Carlos Mendes on 07-18-2023 Bedside Estimated GFR (eGFR) > 60.0000 mL/min >60 [facility] Absolute lymphocyte countOrd ered By: Rivera Forbes on 06-20-2023 Lymphocytes Auto (Unsp spec) [#/Vol] 2.62 10*3/uL 0.83-4.51 [facility] Automated lymphocyte count a s percentage of total leukocytesOrdered By: Rivera Forbes on 06-20-2023 Lymphocytes/100 WBC Auto (Unsp spec) 30.1 % 19-41 [facility] Basophil percentageOrdered B y: Rivera Forbes on 06-20-2023 Basophils/100 WBC (Bld) 0.9 % 0-1 [facility] Cholesterol [Mass/Vol] 218 mg/dL <200 [facility] Comment on above: <200 mg/dL Desirable 200-240 mg/dL Borderline >240 mg/dL High Risk Eosinophils/100 WBC (Bld) 1.4 % 0-5 [facility] Hemoglobin (Bld) [Mass/Vol] 14.1 g/dL 13.0-16.5 [facility] Monocytes/100 WBC (Bld) 5.8 % 0-10 [facility] Neutrophils (Bld) [#/Vol] 5.3 10*3/uL 2.0-7.7 [facility] Neutrophils/100 WBC (Bld) 60.6 % 47-70 [facility] Triglyceride [Mass/Vol] 155 mg/dL <199 [facility] Comment on above: The drugs N-Acetylcy steine and Metamizole may falsely depress this assay.Serum Triglycerides Reference Interval Normal <150 mg/dL Borderline high 150 - 199 mg/dL High 200 - 499 mg/dL Very High > or = 500 mg/dL WBC (Bld) [#/Vol] 8.7 10*3/uL 4.4-11.0 [facility] Bilirubin Test strip Ql (U)O rdered By: Rivera Forbes on 06-20-2023 Bilirubin Ql (U) Negative Negative [facility] Cytology report of Body flui d Cyto stainOrdered By: Rivera Forbes on 06-20-2023 Cytology report Cyto stain Doc (Body fld) SEE PATHOLOGY REPORT [facility] Comment on above: Specimen submitted t o Anatomical Pathology Department for testing. Determination of erythrocyte mean corpuscular volume (MCV)Ordered By: Rivera Forbes on 06-20-2023 MCV (RBC) [Entitic vol] 86.0 fL 80-94 [facility] Erythrocyte distribution wid th ratioOrdered By: Rivera Forbes on 06-20-2023 Erythrocyte distribution width (RBC) [Ratio] 12.9 % 11.6-14.6 [facility] Erythrocyte distribution wid th standard deviationOrdered By: Rivera Forbes on 06-20-2023 Erythrocyte distribution width (RBC) [Entitic vol] 40.3 fL 35.1-43.9 [facility] Hematocrit Auto (Bld) [Volum e fraction]Ordered By: Rivera Forbes on 06-20-2023 Hematocrit (Bld) [Volume fraction] 41.6 % 40-54 [facility] Immature granulocytes/100 WB C Auto (Bld)Ordered By: Rivera Forbes on 06-20-2023 Immature granulocytes/100 WBC (Bld) 1.200 % 0.0-0.9 [facility] Comment on above: IG% - Immature Granu locytes (promyelocytes, myelocytes and metamyelocytes) > 1% indicates that a LEFT SHIFT is Present. Ketones Test strip Ql (U)Ord ered By: Rivera Forbes on 06-20-2023 Ketones Ql (U) Negative Negative [facility] - Chemistry and C hemistry - challengeOrdered By: Rivera Forbes on 06-20-2023 Cholesterol in HDL [Mass/Vol] 49 mg/dL >40 [facility] Comment on above: The drugs N-Acetylcy steine and Metamizole may falsely depress this assay. Reference Range HDL <40 mg/dL Low HDL Cholesterol HDL >or= 60 mg/dL High HDL Cholesterol Cholesterol in LDL [Mass/Vol] 138 mg/dL 0-130 [facility] - Hematology and Cell countsOrdered By: Rivera Forbes on 06-20-2023 MCH (RBC) [Entitic mass] 29.1 pg 27.0-32.0 [facility] MCHC (RBC) [Mass/Vol] 33.9 g/dL 32-36 [facility] Nucleated RBC/100 WBC (Bld) [Ratio] 0 % 0-5 [facility] Platelet mean volume (Bld) [Entitic vol] 10.3 fL 6.2-12.0 [facility] Platelets (Bld) [#/Vol] 293 10*3/uL 150-450 [facility] Nitrite Test strip Ql (U)Ord ered By: Rivera Forbes on 06-20-2023 Nitrite Ql (U) Negative Negative [facility] No Panel InformationOrdered By: Rivera Forbes on 06-20-2023 VLDL Cholesterol 31 mg/dL 5-40 [facility] Protein Test strip Ql (U)Ord ered By: Rivera Forbes on 06-20-2023 Protein Ql (U) 15 mg/dl Negative [facility] RBC Auto (Bld) [#/Vol]Ordere d By: Rivera Forbes on 06-20-2023 RBC (Bld) [#/Vol] 4.84 10*6/uL 4.6-6.2 [facility] Urine blood detectionOrdered By: Rivera Forbes on 06-20-2023 RBC Ql (U) 10 /ul Negative [facility] Urine clarityOrdered By: Tori Forbes on 06-20-2023 Clarity (U) Clear Clear [facility] Urine color determinationOrd ered By: Rivera Forbes on 06-20-2023 Color (U) Yellow Yellow [facility] Urine glucose detectionOrder ed By: Rivera Forbes on 06-20-2023 Glucose Ql (U) Normal mg/dl Normal [facility] Urine leukocyte esterase det ection by dipstickOrdered By: Rivera Forbes on 06-20-2023 Leukocyte esterase Test strip Ql (U) Negative Negative [facility] Urine pHOrdered By: Rivera disla on 06-20-2023 pH (U) 8.0 [pH] 5.0 - 8.0 [facility] Urine specific gravity measu rementOrdered By: Rivear Forbes on 06-20-2023 Specific gravity (U) [Rel density] 1.015 1.002-1.030 [facility] Urine urobilinogen measureme ntOrdered By: Rivera Forbes on 06-20-2023 Urobilinogen Ql (U) Normal mg/dl Normal [facility] Whole blood hemoglobin A1c/t otal hemoglobin ratio (mass fraction)Ordered By: Rivera Forbes on 06-20-2023 HbA1c (Bld) [Mass fraction] 5.9 % 3.8-5.6 [facility] Comment on above: Normal < 5.7 % Predi abetic 5.7 - 6.4 % Diabetic >or= 6.5 % Please note range changes. No Panel InformationOrdered By: Gregg Alcantar on 12-29-2022 Prostate Specific Antigen Screen 0.48 ng/mL 0.00-4.00 [facility] Comment on above: This test was perfor med using the TPSA assay method for the[employer] chemistry system. Values obtained with differentassay methods cannot be used interchangably.When changing PSA assays in the course of monitoring apatient, additional sequential testing should be carriedout to confirm baseline values. Absolute lymphocyte countOrd ered By: Rivera Forbes on 10-26-2022 Lymphocytes Auto (Unsp spec) [#/Vol] 3.43 10*3/uL 0.83-4.51 [facility] Basophil percentageOrdered B y: Rivera Forbes on 10-26-2022 Basophils/100 WBC (Bld) 0.7 % 0-1 [facility] Bilirubin [Mass/Vol] 0.50 mg/dL 0.20-1.00 [facility] Comment on above: For patients on eltr ombopag therapy, use of Dimension [place] TBIL is not recommended. Chloride [Moles/Vol] 107 mmol/L 98-107 [facility] Eosinophils/100 WBC (Bld) 0.9 % 0-5 [facility] Glucose [Mass/Vol] 123 mg/dL 74-106 [facility] Comment on above: Fasting Glucose resu lt from 100 to 125 mg/dL suggests IMPAIRED HOMEOSTASIS per A.D.A. criteria. Neutrophils (Bld) [#/Vol] 5.7 10*3/uL 2.0-7.7 [facility] Neutrophils/100 WBC (Bld) 56.9 % 47-70 [facility] Potassium [Moles/Vol] 4.1 mmol/L 3.5-5.1 [facility] Protein [Mass/Vol] 6.9 g/dL 6.4-8.2 [facility] Sodium [Moles/Vol] 139 mmol/L 136-145 [facility] Testosterone [Mass/Vol] 189.15 ng/dL [facility] Comment on above: CENTRAL 90% REFERENC E RANGES MALE AGE <50 197.44 - 669.58 ng/dL MALE AGE > or = 50 187.72 - 684.19 ng/dL FEMALE AGE <50 8.38 - 35.01 ng/dL FEMALE AGE > or = 50 <7.00 - 35.92 ng/dL Effective as of 10/12/20 WBC (Bld) [#/Vol] 10.0 10*3/uL 4.4-11.0 [facility] Blood erythrocytes count (nu mber/volume)Ordered By: Rivera Forbes on 10-26-2022 RBC (Bld) [#/Vol] 4.65 10*6/uL 4.6-6.2 [facility] Blood hemoglobin measurement (mass/volume)Ordered By: Rivera Forbes on 10-26-2022 Hemoglobin (Bld) [Mass/Vol] 13.6 g/dL 13.0-16.5 [facility] Blood lymphocytes/100 leukoc ytesOrdered By: Rivera Forbes on 10-26-2022 Lymphocytes/100 WBC (Bld) 34.4 % 19-41 [facility] Blood monocytes/100 leukocyt esOrdered By: Rivera Forbes on 10-26-2022 Monocytes/100 WBC (Bld) 6.2 % 0-10 [facility] Blood platelet mean volumeOr dered By: Rivera Forbes on 10-26-2022 Platelet mean volume (Bld) [Entitic vol] 10.8 fL 6.2-12.0 [facility] Determination of erythrocyte mean corpuscular volume (MCV)Ordered By: Rivera Forbes on 10-26-2022 MCV (RBC) [Entitic vol] 91.2 fL 80-94 [facility] Hematocrit Auto (Bld) [Volum e fraction]Ordered By: Rivera Forbes on 10-26-2022 Hematocrit (Bld) [Volume fraction] 42.4 % 40-54 [facility] - Chemistry and C hemistry - challengeOrdered By: Rivera Forbes on 10-26-2022 ALP [Catalytic activity/Vol] 70 U/L 45-117 [facility] ALT [Catalytic activity/Vol] 36 U/L 16-61 [facility] CO2 [Moles/Vol] 30.0 mmol/L 21.0-32.0 [facility] Cobalamin (Vitamin B12) [Mass/Vol] 357 pg/mL 211-911 [facility] Globulin (S) [Mass/Vol] 3.5 g/dL 2.2-4.2 [facility] Urea nitrogen/Creatinine [Mass ratio] 15.8 mg/mg 10-20 [facility] - Hematology and Cell countsOrdered By: Rivera Forbes on 10-26-2022 Erythrocyte distribution width (RBC) [Entitic vol] 42.3 fL 35.1-43.9 [facility] Erythrocyte distribution width (RBC) [Ratio] 12.8 % 11.6-14.6 [facility] Immature granulocytes/100 WBC (Bld) 0.900 % 0.0-0.9 [facility] Comment on above: IG% - Immature Granu locytes (promyelocytes, myelocytes and metamyelocytes) > 1% indicates that a LEFT SHIFT is Present. MCH (RBC) [Entitic mass] 29.2 pg 27.0-32.0 [facility] Nucleated RBC/100 WBC (Bld) [Ratio] 0 % 0-5 [facility] MCHC Auto (RBC) [Mass/Vol]Or dered By: Rivera Forbes on 10-26-2022 MCHC (RBC) [Mass/Vol] 32.1 g/dL 32-36 [facility] No Panel InformationOrdered By: Rivera Forbes on 10-26-2022 Estimated GFR (MDRD) Amer 126 mL/min >60 [facility] Comment on above: GFR Calc Estimated GFR (MDRD) Non-Af Amer 104 mL/min >60 [facility] Comment on above: Non- GFR Calc Thyroid Stimulating Hormone (TSH) 0.76 uIU/mL 0.358-3.74 [facility] Vitamin D 25-Hydroxy 26.0 ng/mL [facility] Comment on above: Vitamin D 25(OH) Sta tus Range Deficiency <20 ng/mL (50nmol/L) Insufficiency 20 - 30 ng/mL (50 - 75 nmol/L) Sufficiency 30 - 100 ng/mL (75 - 250 nmol/L) Toxicity >100 ng/mL (>250 nmol/L) Platelets bldOrdered By: Tori Forbes on 10-26-2022 Platelets (Bld) [#/Vol] 278 10*3/uL 150-450 [facility] Serum or plasma albumin shane urement (mass/volume)Ordered By: Rivera Forbes on 10-26-2022 Albumin [Mass/Vol] 3.4 g/dL 3.2-5.0 [facility] Serum or plasma albumin/glob ulin mass ratioOrdered By: Rivera Forbes on 10-26-2022 Albumin/Globulin [Mass ratio] 1.0 {ratio} 0.9-2.4 [facility] Serum or plasma calcium shane urement (mass/volume)Ordered By: Rivera Forbes on 10-26-2022 Calcium [Mass/Vol] 8.4 mg/dL 8.5-10.1 [facility] Serum or plasma creatinine m easurement (mass/volume)Ordered By: Rivera Forbes on 10-26-2022 Creatinine [Mass/Vol] 0.82 mg/dL 0.70-1.30 [facility] Comment on above: The validity of the calculated GFR & GFRAA in patients over 70 years has not been determined. Clinical correlation is essential. Serum or plasma urea nitroge n measurement (mass/volume)Ordered By: Rivera Forbes on 10-26-2022 Urea nitrogen [Mass/Vol] 13 mg/dL 7-18 [facility] Thin prep Papanicolaou smear with manual screeningOrdered By: Rivera Forbes on 10-26-2022 Thin prep Papanicolaou smear with manual screening 22 U/L 15-37 [facility] Thin prep Papanicolaou smear with manual screening 2 5-15 [facility] Culture, urineOrdered By: Dr Parris Forbes on 07-03-2022 Bacteria identified Cx Nom (U) Culture exhibits no growth. [facility] No Panel Informationon 12-27 Prostate Specific Antigen Screen 0.55 ng/mL 0.00-4.00 [facility] Work Phone: Comment on above: This test was perfor med using the TPSA assay method for the[employer] chemistry system. Values obtained with differentassay methods cannot be used interchangably.When changing PSA assays in the course of monitoring apatient, additional sequential testing should be carriedout to confirm baseline values. Basophil percentageon 2021 Basophil percentage 0 SEEN /hpf 0-5 [facility] Work Phone: Bilirubin Test strip Ql (U)o n 12-04-2021 Bilirubin Ql (U) Negative Negative [facility] Work Phone: Ketones Test strip Ql (U)on 12-04-2021 Ketones Ql (U) Negative Negative [facility] Work Phone: Mucus LM Ql (Urine sed)on Mucus Ql (Urine sed) 0 SEEN /hpf [facility] Work Phone: Nitrite Test strip Ql (U)on 12-04-2021 Nitrite Ql (U) Negative Negative [facility] Work Phone: Protein Test strip Ql (U)on 12-04-2021 Protein Ql (U) 15 mg/dl Negative [facility] Work Phone: Squamous epithelial cells de tection in urine sediment by light microscopyon 12-04-2021 Epithelial cells.squamous LM Ql (Urine sed) 0 SEEN /hpf 0-5 [facility] Work Phone: Urine blood detectionon 11-17 RBC Ql (U) 150 /ul Negative [facility] Work Phone: RBC Ql (U) 0 SEEN /hpf 0-5 [facility] Work Phone: Urine clarityon 12-04-2021 Clarity (U) Clear Clear [facility] Work Phone: Urine color determinationon 12-04-2021 Color (U) Yellow Yellow [facility] Work Phone: Urine glucose detectionon Glucose Ql (U) Normal mg/dl Normal [facility] Work Phone: Urine leukocyte esterase det ection by dipstickon 12-04-2021 Leukocyte esterase Test strip Ql (U) Negative Negative [facility] Work Phone: Urine pHon 12-04-2021 pH (U) 6.0 [pH] 5.0 - 8.0 [facility] Work Phone: Urine sediment bacteria coun t by microscopy (number/high power field)on 12-04-2021 Bacteria LM.HPF (Urine sed) [#/Area] 0 /[HPF] None Seen [facility] Work Phone: [phone] Urine specific gravity measu rementon 12-04-2021 Specific gravity (U) [Rel density] 1.025 1.002-1.030 [facility] Work Phone: [phone] Urobilinogen Auto test strip Ql (U)on 12-04-2021 Urobilinogen Ql (U) Normal mg/dl Normal [facility] Work Phone: [phone] Absolute lymphocyte counton 12-03-2021 Lymphocytes Auto (Unsp spec) [#/Vol] 3.01 10*3/uL 0.83-4.51 [facility] Work Phone: Basophil percentageon 2021 Basophil percentage 0-5 SEEN /hpf 0-5 [facility] Work Phone: [phone] Basophils/100 WBC (Bld) 0.5 % 0-1 [facility] Work Phone: Chloride [Moles/Vol] 105 mmol/L 98-107 [facility] Work Phone: [phone] Eosinophils/100 WBC (Bld) 0.3 % 0-5 [facility] Work Phone: Glucose [Mass/Vol] 131 mg/dL 74-106 [facility] [facility] Work Phone: Comment on above: Fasting Glucose resu lt greater than or equal to 126 mg/dL suggests DIABETES MELLITUS per A.D.A. criteria. Neutrophils (Bld) [#/Vol] 11.5 10*3/uL 2.0-7.7 [facility] Work Phone: [phone] Neutrophils/100 WBC (Bld) 73.8 % 47-70 [facility] Work Phone: [phone] Potassium [Moles/Vol] 3.8 mmol/L 3.5-5.1 [facility] Work Phone: [phone] Sodium [Moles/Vol] 141 mmol/L 136-145 [facility] Work Phone: WBC (Bld) [#/Vol] 15.5 10*3/uL 4.4-11.0 [facility] Work Phone: Bilirubin Test strip Ql (U)o n 12-03-2021 Bilirubin Ql (U) Negative Negative [facility] Work Phone: Blood erythrocytes count (nu mber/volume)on 12-03-2021 RBC (Bld) [#/Vol] 4.72 10*6/uL 4.6-6.2 [facility] Work Phone: Blood hemoglobin measurement (mass/volume)on 12-03-2021 Hemoglobin (Bld) [Mass/Vol] 14.0 g/dL 13.0-16.5 [facility] Work Phone: Blood lymphocytes/100 leukoc yteson 12-03-2021 Lymphocytes/100 WBC (Bld) 19.4 % 19-41 [facility] Work Phone: Blood monocytes/100 leukocyt eson 12-03-2021 Monocytes/100 WBC (Bld) 5.4 % 0-10 [facility] Work Phone: Blood platelet mean volumeon 12-03-2021 Platelet mean volume (Bld) [Entitic vol] 10.2 fL 6.2-12.0 [facility] Work Phone: Determination of erythrocyte mean corpuscular volume (MCV)on 12-03-2021 MCV (RBC) [Entitic vol] 88.8 fL 80-94 [facility] Work Phone: Hematocrit Auto (Bld) [Volum e fraction]on 12-03-2021 Hematocrit (Bld) [Volume fraction] 41.9 % 40-54 [facility] Work Phone: Ketones Test strip Ql (U)on 12-03-2021 Ketones Ql (U) 5 mg/dl Negative [facility] Work Phone: Laboratory - Chemistry and C hemistry - challengeon 12-03-2021 CO2 [Moles/Vol] 29.0 mmol/L 21.0-32.0 [facility] Work Phone: Urea nitrogen/Creatinine [Mass ratio] 16.0 mg/mg 10-20 [facility] Work Phone: Laboratory - Hematology and Cell countson 12-03-2021 Erythrocyte distribution width (RBC) [Entitic vol] 42.5 fL 35.1-43.9 [facility] Work Phone: Erythrocyte distribution width (RBC) [Ratio] 13.0 % 11.6-14.6 [facility] Work Phone: Immature granulocytes/100 WBC (Bld) 0.600 % 0.0-0.9 [facility] Work Phone: Comment on above: IG% - Immature Granu locytes (promyelocytes, myelocytes and metamyelocytes) > 1% indicates that a LEFT SHIFT is Present. MCH (RBC) [Entitic mass] 29.7 pg 27.0-32.0 [facility] Work Phone: Nucleated RBC/100 WBC (Bld) [Ratio] 0 % 0-5 [facility] Work Phone: MCHC Auto (RBC) [Mass/Vol]on 12-03-2021 MCHC (RBC) [Mass/Vol] 33.4 g/dL 32-36 [facility] Work Phone: Mucus LM Ql (Urine sed)on Mucus Ql (Urine sed) 0 SEEN /hpf [facility] Work Phone: Nitrite Test strip Ql (U)on 12-03-2021 Nitrite Ql (U) Negative Negative [facility] Work Phone: No Panel Informationon 12-03 Estimated Creatinine Clearance Calc 90.88 ml/min [facility] Work Phone: Estimated GFR (MDRD) Amer 108 mL/min >60 [facility] Work Phone: Comment on above: GFR Calc Estimated GFR (MDRD) Non-Af Amer 90 mL/min >60 [facility] Work Phone: Comment on above: Non- GFR Calc Platelets bldon 12-03-2021 Platelets (Bld) [#/Vol] 272 10*3/uL 150-450 [facility] Work Phone: Protein Test strip Ql (U)on 12-03-2021 Protein Ql (U) 30 mg/dl Negative [facility] Work Phone: Serum or plasma calcium shane urement (mass/volume)on 12-03-2021 Calcium [Mass/Vol] 9.1 mg/dL 8.5-10.1 [facility] Work Phone: Serum or plasma creatinine m easurement (mass/volume)on 12-03-2021 Creatinine [Mass/Vol] 0.94 mg/dL 0.70-1.30 [facility] Work Phone: Comment on above: The validity of the calculated GFR & GFRAA in patients over 70 years has not been determined. Clinical correlation is essential. Serum or plasma urea nitroge n measurement (mass/volume)on 12-03-2021 Urea nitrogen [Mass/Vol] 15 mg/dL 7-18 [facility] Work Phone: Squamous epithelial cells de tection in urine sediment by light microscopyon 12-03-2021 Epithelial cells.squamous LM Ql (Urine sed) 0-5 SEEN /hpf 0-5 [facility] Work Phone: Thin prep Papanicolaou smear with manual screeningon 12-03-2021 Thin prep Papanicolaou smear with manual screening 7 5-15 [facility] Work Phone: Urine blood detectionon 11-17 RBC Ql (U) 250 /ul Negative [facility] Work Phone: RBC Ql (U) 25-50 SEEN /hpf 0-5 [facility] Work Phone: Urine clarityon 12-03-2021 Clarity (U) Clear Clear [facility] Work Phone: Urine color determinationon 12-03-2021 Color (U) Yellow Yellow [facility] Work Phone: Urine glucose detectionon Glucose Ql (U) Normal mg/dl Normal [facility] Work Phone: Urine leukocyte esterase det ection by dipstickon 12-03-2021 Leukocyte esterase Test strip Ql (U) Negative Negative [facility] Work Phone: Urine pHon 12-03-2021 pH (U) 6.0 [pH] 5.0 - 8.0 [facility] Work Phone: Urine sediment bacteria coun t by microscopy (number/high power field)on 12-03-2021 Bacteria LM.HPF (Urine sed) [#/Area] RARE /hpf None Seen [facility] Work Phone: Urine specific gravity measu rementon 12-03-2021 Specific gravity (U) [Rel density] 1.030 1.002-1.030 [facility] Work Phone: Urobilinogen Auto test strip Ql (U)on 12-03-2021 Urobilinogen Ql (U) 1 mg/dl Normal [facility] Work Phone: FUNGAL CULTURE (NONDERMAL SI TE) [CCL]on 01-30-2020 FUNGAL CULTURE (NONDERMAL SITE) [CCL] Normal [facility] Comment on above: Result Comment: _FUN GAL CULTURE (NON DERMAL SITE) [CCL]_ Performed By: #### 2 [id number] #### [facility],[address] [place] [address] Fungal Cultureon 01-13-2020 Fungal Culture Specimen Desc: BODYFL Sp. Request/Comment: REDTPR Culture Result NF34 Report Status 01/13/2020 FINAL Normal [facility] CELL COUNT, OTHER FLUIDon CELL COUNT, OTHER FLUID Normal [facility] Comment on above: Result Comment: CELL COUNT OTHER FLUID SPECIMEN _SYNOVIAL_LEFT_KNEE___ 12/09/19.DJB. APPEARANCE _YELLOW___ 12/09/19.DJB. CLEAR VISCOUS FLUID WBC's per UL _156 12/09/19.DJB. RBC's per UL _32 12/09/19.DJB. SEGS (%) _14 12/09/19.DJB. BANDS (%) LYMPHS (%) _53 12/09/19.DJB. MONO (%) _33 12/09/19.DJB. Performed By: #### 2 [id number] #### [place] [id number] CRYSTALS-FLUIDon 12-09-2019 CRYSTALS-FLUID Normal [facility] Comment on above: Result Comment: MOHIT TALS -FLUID CRYSTALS _NEGATIVE (NEGATIVE ) 12/09/19.EML. Performed By: #### 2 [id number] #### [facility],[address] [place], [place] [id number] CULTURE BODY FLUIDon 020 CULTURE BODY FLUID CULTURE BODY FLUID _BODY FLUID CULTURE_ M I C R O B I O L O G Y R E P O R T FINAL Antimicrobial Susceptibility and Organism Identification Report Specimen Number : [id number] Requested : 12/09/19 Specimen Source : BODY FLUID Collected : 12/09/19 14:00 Franco of Isolation : OUTPATIENT Received : 12/09/19 14:00 Requesting Physician : MISHA MARTINI Patient/Specimen Tests and Comments Specimen Comments FINAL REPORT: NO GROWTH AT 48 HOURS SOURCE: LEFT KNEE Tech : Source : BODY FLUID ID # : [id number] FINAL Report Date : / / : Collected : 12/09/19 14:00 12/12/19.1118.KLS. 12/11/19.1113.KLS. 12/12/19.1118.KLS.C OMPLETE Normal [facility] Comment on above: Performed By: #### 2 [id number] #### [facility],[address] [place], [place] [id number] GRAM STAIN ROUTINEon 020 INR Coag (Bld) [Relative time] GRAM STAIN ROUTINE GRAM STAIN ROUTINE SOURCE _LEFT_KNEE 12/10/19.1121.KLS. AMOUNT DESCRIPTION _NO_ORGANISMS_SEEN_ 12/10/19.1121.KLS. Normal [facility] Comment on above: Performed By: #### 2 [id number] #### [facility],[address] [place] [address] 09-02-2018 [facility] Office Visit (UCWSTR) ---- ARI LOFTON ([id number]) 1970 M Date Time Provider Department 09/02/18 6:30 PM SHIRA GUPTA [facility] During your visit today, we recorded the following information about you: Temperature Pulse Respiration Blood pressure 97.2 degrees 76/minute 16/minute 134/82 Weight 133.8 kg Shira Gupta APRN.CNP 09/02/2018 6:45 PM Signed ASSESSMENT/PLAN: 1. Acute right-sided low back pain with right-sided sciatica - ICD9: 724.2, 724.3, ICD10: M54.41 Lumbosacral sprain - Ice for localized tenderness - NSAIDS- see orders - Muscle relaxant- see orders - Patient given instructions use of medications as ordered, back care exercise program and weight loss Report immediately to ER for foot drop, bowel or bladder loss, numbness or tingling of legs/feet or any new or worsening concerns if unable to get into PMD Shira Gupta APRN.CNP 09/02/2018 6:54 PM Signed Subjective The history is provided by the patient. No junior bookkeeper was used. HPI Ari Lofton is a 47 year old male who presents today for CC of lower back pain. This started today he felt a pop when he reached over to pick something off the floor. He denies any loss of movement or problems with bowel or bladder function. He has used ice and tylenol with slight relief. He had the same things about a year ago - muscle strain. BP 134/82 Pulse 76 Temp 36.2 ?C (97.2 ?F) (Tympanic) Resp 16 Wt 133.8 kg (295 lb) BMI 43.56 kg/m? Social History Socioeconomic History Marital status: Spouse name: Not on file Number of children: Not on file Years of education: Not on file Highest education level: Not on file Social Needs Financial resource strain: Not on file Food insecurity - worry: Not on file Food insecurity - inability: Not on file Transportation needs - medical: Not on file Transportation needs - non-medical: Not on file Occupational History Not on file Tobacco Use Smoking status: Current Every Day Smoker Packs/day: 1.00 Years: 20.00 Pack years: 20 Smokeless tobacco: Never Used Substance and Sexual Activity Alcohol use: Yes Comment: occasional Drug use: No Sexual activity: Not on file Other Topics Concerns: Not on file Social History Narrative Not on file PAST MEDICAL HISTORY Diagnosis Date - Hypertension I have confirmed and edited as necessary, the [facility] Review of Systems Constitutional: Negative for chills and fever. Musculoskeletal: Positive for back pain. Negative for falls and myalgias. Objective Physical Exam Constitutional: He is oriented to person, place, and time and well-developed, well-nourished, and in no distress. Cardiovascular: Pulses: Popliteal pulses are 2+ on the right side, and 2+ on the left side. Dorsalis pedis pulses are 2+ on the right side, and 2+ on the left side. Posterior tibial pulses are 2+ on the right side, and 2+ on the left side. Pulmonary/Chest: Effort normal. Musculoskeletal: Lumbar back: He exhibits decreased range of motion, tenderness and pain. He exhibits no bony tenderness, no swelling, no edema, no deformity, no laceration, no spasm and normal pulse. Back: Patient was able to change positions without assistance, with mild overt signs of discomfort. Neurovascular status is intact to bilateral lower extremities. Patellar reflexes are +2 bilaterally. Leg strength 5/5. Pedal pulses are palpable and strong. Normal temp. Normal sensation. Bilateral leg lifts are negative for radiculopathy. Able to ambulate without evidence of a foot drop or ataxic gait. decreased flexion, dorsiflexion, abduction and adduction. Denies bowel or bladder dysfunction, saddle anesthesia, distal paresthesias or weakness in the lower extremities. Neurological: He is alert and oriented to person, place, and time. He has normal sensation and normal reflexes. Skin: Skin is warm and dry. Psychiatric: Affect normal. Nursing note and vitals reviewed. ASSESSMENT/PLAN: 1. Acute right-sided low back pain with right-sided sciatica - ICD9: 724.2, 724.3, ICD10: M54.41 Lumbosacral sprain - Ice for localized tenderness - NSAIDS- see orders - Muscle relaxant- see orders - Patient given instructions use of medications as ordered, back care exercise program and weight loss Report immediately to ER for foot drop, bowel or bladder loss, numbness or tingling of legs/feet or any new or worsening concerns if unable to get into PMD Diagnosis and treatment plan were discussed and questions were answered to the patient's satisfaction. Pt acknowledged understanding of concepts and follow up plan. Specific signs and symptoms that would indicate the need for higher level of care were discussed in detail warranting prompt ER evaluation. Shira Gupta APRN.COMMUTATOR ASSEMBLER Referring Provider: SELF [[id number]] Allergies As of Date: 09/02/2018 (No Known Allergies) Date Reviewed: 09/02/2018 Reviewed by: Delmi Landeros Ma - Fully Assessed Reason for Visit: Back Pain [12] Cmt: lower back pain, right hip pain x 1 pm Primary Visit Diagnosis:Acute right-sided low back pain with right-sided sciatica [M54.41] Order(s):naproxen (NAPROSYN) 500 mg tabletTake 1 tablet by mouth twice daily with meals for 14 days. Take with food.Disp: 28 tabletRfl: 0 cyclobenzaprine (FLEXERIL) 10 mg tabletTake 1/2- 1 tablet at hsDisp: 10 tabletRfl: 0 Prescriptions as of 09/02/2018 Sig: VENLAFAXINE ORAL Take by mouth. LISINOPRIL 10 MG-HYDROCHLOROT* Take 1 tablet by mouth once d* BABY ASPIRIN ORAL Take 81 mg by mouth once real* NAPROXEN 500 MG TABLET Take 1 tablet by mouth twice * CYCLOBENZAPRINE 10 MG TABLET Take 1/2- 1 tablet at hs BUPROPION HCL 150 MG TABLET,1* Take 150 mg by mouth twice da* AZELASTINE-FLUTICAS ONE 137 MC* Use in each nostril as neede* Problem List As Of Date 09/02/2018 Noted Resolved Bilateral inguinal hernia without obstruction o*INVALID FOR* Recurrent umbilical hernia [K42.9] INVALID FOR* Other instructions from your clinician: ASSESSMENT/PLAN: 1. Acute right-sided low back pain with right-sided sciatica - ICD9: 724.2, 724.3, ICD10: M54.41 Lumbosacral sprain - Ice for localized tenderness - NSAIDS- see orders - Muscle relaxant- see orders - Patient given instructions use of medications as ordered, back care exercise program and weight loss Report immediately to ER for foot drop, bowel or bladder loss, numbness or tingling of legs/feet or any new or worsening concerns if unable to get into PMD Prescriptions ordered this encounter Disp Refills Start End NAPROXEN 500 MG TABLET 28 t* 0 09/02/2018 09/16/2018 Route: ORAL Sig: Take 1 tablet by mouth twice daily with meals for 14 days. Take with food. CYCLOBENZAPRINE 10 MG TABLET 10 t* 0 09/02/2018 Sig: Take 1/2- 1 tablet at hs Encounter Status:Closed by SHIRA GUPTA CNP on 09/02/18 [facility] PROGRESSon 09-02-2018 Protein mass conc HNO ID: [id number] Author: Shira Gupta Service: ? Author Type: Nurse Practitioner Type: Progress Notes Filed: 09/02/2018 6:54 PM Note Text: Subjective The history is provided by the patient. No junior bookkeeper was used. HPI Ari Lofton is a 47 year old male who presents today for CC of lower back pain. This started today he felt a pop when he reached over to pick something off the floor. He denies any loss of movement or problems with bowel or bladder function. He has used ice and tylenol with slight relief. He had the same things about a year ago - muscle strain. BP 134/82 Pulse 76 Temp 36.2 ?C (97.2 ?F) (Tympanic) Resp 16 Wt 133.8 kg (295 lb) BMI 43.56 kg/m? Social History Socioeconomic History Marital status: Spouse name: Not on file Number of children: Not on file Years of education: Not on file Highest education level: Not on file Social Needs Financial resource strain: Not on file Food insecurity - worry: Not on file Food insecurity - inability: Not on file Transportation needs - medical: Not on file Transportation needs - non-medical: Not on file Occupational History Not on file Tobacco Use Smoking status: Current Every Day Smoker Packs/day: 1.00 Years: 20.00 Pack years: 20 Smokeless tobacco: Never Used Substance and Sexual Activity Alcohol use: Yes Comment: occasional Drug use: No Sexual activity: Not on file Other Topics Concerns: Not on file Social History Narrative Not on file PAST MEDICAL HISTORY Diagnosis Date - Hypertension I have confirmed and edited as necessary, the [facility] Review of Systems Constitutional: Negative for chills and fever. Musculoskeletal: Positive for back pain. Negative for falls and myalgias. Objective Physical Exam Constitutional: He is oriented to person, place, and time and well-developed, well-nourished, and in no distress. Cardiovascular: Pulses: Popliteal pulses are 2+ on the right side, and 2+ on the left side. Dorsalis pedis pulses are 2+ on the right side, and 2+ on the left side. Posterior tibial pulses are 2+ on the right side, and 2+ on the left side. Pulmonary/Chest: Effort normal. Musculoskeletal: Lumbar back: He exhibits decreased range of motion, tenderness and pain. He exhibits no bony tenderness, no swelling, no edema, no deformity, no laceration, no spasm and normal pulse. Back: Patient was able to change positions without assistance, with mild overt signs of discomfort. Neurovascular status is intact to bilateral lower extremities. Patellar reflexes are +2 bilaterally. Leg strength 5/5. Pedal pulses are palpable and strong. Normal temp. Normal sensation. Bilateral leg lifts are negative for radiculopathy. Able to ambulate without evidence of a foot drop or ataxic gait. decreased flexion, dorsiflexion, abduction and adduction. Denies bowel or bladder dysfunction, saddle anesthesia, distal paresthesias or weakness in the lower extremities. Neurological: He is alert and oriented to person, place, and time. He has normal sensation and normal reflexes. Skin: Skin is warm and dry. Psychiatric: Affect normal. Nursing note and vitals reviewed. ASSESSMENT/PLAN: 1. Acute right-sided low back pain with right-sided sciatica - ICD9: 724.2, 724.3, ICD10: M54.41 Lumbosacral sprain - Ice for localized tenderness - NSAIDS- see orders - Muscle relaxant- see orders - Patient given instructions use of medications as ordered, back care exercise program and weight loss Report immediately to ER for foot drop, bowel or bladder loss, numbness or tingling of legs/feet or any new or worsening concerns if unable to get into PMD Diagnosis and treatment plan were discussed and questions were answered to the patient's satisfaction. Pt acknowledged understanding of concepts and follow up plan. Specific signs and symptoms that would indicate the need for higher level of care were discussed in detail warranting prompt ER evaluation. Shira Gupta, FREDRICK.COMMUTATOR ASSEMBLER Normal [facility] Group A Strep by PCRon 09-12 GAS Specimen Source Throat Swab Normal [facility] Comment on above: Performed By: #### G ASPCR #### [facility] [address] [place], [place] [address] Group A Strep PCR Negative Normal [facility] Comment on above: Result Comment: This test was developed and its performance characteristics determined by [facility] [place] ([facility]). It has not been cleared or approved by the FDA. [facility] is regulated under CLIA as qualified to perform high-complexity testing. This test is used for clinical purposes. It should not be regarded as investigational or for research. Performed By: #### G [facility] #### [facility] [address] [place] [id number] CNOVon 2017 CNOV Office Visit (UCWSTR) ---- ARI LOFTON ([id number]) 1970 M Date Time Provider Department 09/11/17 8:15 PM ARMANDO ARCHER (AEROPHYSICS ENGINEER) [facility] During your visit today, we recorded the following information about you: Temperature Pulse Respiration Blood pressure 98.3 degrees 70/minute 16/minute 110/74 Weight 124.3 kg Armando Archer APRN.COMMUTATOR ASSEMBLER 09/12/2017 8:21 AM Signed Subjective HPI Patient presents with: Sore Throat: right side, swollen gland x 2 hours Pt states sinus congestion x 2 weeks and worsening. Denies any otc treatment for symptoms. Review of Systems Constitutional: Negative for chills, fever and malaise/fatigue. HENT: Positive for congestion, sinus pain and sore throat. Negative for ear pain. Eyes: Positive for discharge and redness. Respiratory: Negative for cough. Gastrointestinal: Negative for abdominal pain, diarrhea, nausea and vomiting. Skin: Negative for rash. Neurological: Positive for headaches. PAST MEDICAL HISTORY Diagnosis Date - Hypertension PAST SURGICAL HISTORY Procedure Laterality Date - HERNIA REPAIR HX 2009 umbilical - TONSILLECTOMY HX 2013 ALLERGIES Patient has no known allergies. MEDICATIONS venlafaxine HCl (VENLAFAXINE ORAL) Take by mouth. lisinopril-hydrochl orothiazide (PRINZIDE,ZESTORETI C) 10-12.5 mg per tablet Take 1 tablet by mouth once daily. BABY ASPIRIN ORAL Take 81 mg by mouth once daily. amoxicillin (AMOXIL) 875 mg tablet Take 1 tablet by mouth twice daily for 10 days. buPROPion HCl, smoking deter, 150 mg TbER Take 150 mg by mouth twice daily. azelastine-fluticas one 137-50 mcg/spray spry Use in each nostril as needed. FAMILY HISTORY Problem Relation Age of Onset - Diabetes Father - Hypertension Father - Cancer Other renal Social History Substance Use Topics - Smoking status: Current Every Day Smoker Packs/day: 1.00 Years: 20.00 - Smokeless tobacco: Never Used - Alcohol use Yes Comment: occasional Objective Physical Exam Constitutional: He is well-developed, well-nourished, and in no distress. HENT: Head: Normocephalic. Right Ear: External ear and ear canal normal. Tympanic membrane is erythematous (purulent fluid behind TM). Left Ear: External ear and ear canal normal. Tympanic membrane is erythematous (purulent fluid behind TM). Nose: Mucosal edema present. Right sinus exhibits no maxillary sinus tenderness and no frontal sinus tenderness. Left sinus exhibits no maxillary sinus tenderness and no frontal sinus tenderness. Mouth/Throat: Posterior oropharyngeal edema and posterior oropharyngeal erythema (PND) present. Eyes: EOM are normal. Pupils are equal, round, and reactive to light. Right eye exhibits discharge. Left eye exhibits discharge. Right conjunctiva is injected. Left conjunctiva is injected. Neck: Normal range of motion. Neck supple. Cardiovascular: Normal rate, regular rhythm and normal heart sounds. Pulmonary/Chest: Effort normal and breath sounds normal. No respiratory distress. He has no wheezes. Abdominal: Soft. He exhibits no distension. There is no tenderness. Lymphadenopathy: He has cervical adenopathy. Skin: Skin is warm and dry. No rash noted. Nursing note and vitals reviewed. ASSESSMENT/PLAN: 1. Sore throat - ICD9: 462, ICD10: J02.9 (primary diagnosis) - Rapid Strep negative in the office today and Throat culture pending - Discussed supportive care treatment with fluids, rest and analgesia. - The patient may also use OTC decongestants prn, warm salt water gargles, throat lozenges and/or OTC throat spray as needed and nasal saline gtts and suction prn. - The patient should follow up in 3-5 days if symptoms persist or worsen - Call back if drooling, increased temperature, symptoms of dehydration and/or still sick in one week - GROUP A STREPTOCOCCUS BY PCR - RAPID STREP TEST B/O 2. Acute suppurative otitis media of both ears without spontaneous rupture of tympanic membranes, recurrence not specified - ICD9: 382.00, ICD10: H66.003 - Will begin treatment with Amoxicillin for 10 days - The patient should also be given OTC decongestants prn, warm salt water gargles, throat lozenges and/or OTC throat spray as needed and nasal saline gtts and suction prn for the first 5-7 days of treatment. - Supportive care with plenty of fluids, rest, and analgesia prn. - Follow up in 3-5 days if symptoms persist or worsen. Prescription instructions reviewed with patient as applicable. Patient advised if symptoms do not improve or if symptoms worsen sooner, to contact their primary care physician. Potential red flag symptoms discussed with the patient. Reviewed appropriate action plan to take if red flag symptoms occur. Patient agreeable to treatment plan. Armando Archer APRN.COMMUTATOR ASSEMBLER Referring Provider: SELF [200] Allergies As of Date: 2017 (No Known Allergies) Date Reviewed: 2017 Reviewed by: Delmi Landeros Ma - Fully Assessed Reason for Visit: Sore Throat [200] Cmt: right side, swollen gland x 2 hours Primary Visit Diagnosis:Sore throat [J02.9] Other Visit Diagnosis:Acute suppurative otitis media of both ears without spontaneous rupture of tympanic membranes, recurrence not specified [H66.003] Order(s):amoxicilli n (AMOXIL) 875 mg tabletTake 1 tablet by mouth twice daily for 10 days.Disp: 20 tabletRfl: 0 GROUP A STREPTOCOCCUS BY PCR [SQGASPCR] Order #: [id number] RAPID STREP TEST B/O [[id number]] Order #: [id number] Prescriptions as of 2017 Sig: VENLAFAXINE ORAL Take by mouth. LISINOPRIL 10 MG-HYDROCHLOROT* Take 1 tablet by mouth once d* BABY ASPIRIN ORAL Take 81 mg by mouth once real* AMOXICILLIN 875 MG TABLET Take 1 tablet by mouth twice * BUPROPION HCL 150 MG TABLET,1* Take 150 mg by mouth twice da* AZELASTINE-FLUTICAS ONE 137 MC* Use in each nostril as neede* Problem List As Of Date 2017 Noted Resolved Bilateral inguinal hernia without obstruction o*INVALID FOR* Recurrent umbilical hernia [K42.9] INVALID FOR* Prescriptions ordered this encounter Disp Refills Start End AMOXICILLIN 875 MG TABLET 20 t* 0 2017 09/21/2017 Route: ORAL Sig: Take 1 tablet by mouth twice daily for 10 days. Disposition: Return if symptoms worsen or fail to improve. Follow-up and Disposition History Recorded Encounter Status:Closed by ARMANDO ARCHER on 09/12/17 Normal [facility] PROGRESSon 2017 Protein mass conc HNO ID: [id number] Author: Armando Griffin (Customer Service Professional) Harjeet Service: (none) Author Type: Nurse Practitioner Type: Progress Notes Filed: 09/12/2017 8:21 AM Note Text: Subjective HPI Patient presents with: Sore Throat: right side, swollen gland x 2 hours Pt states sinus congestion x 2 weeks and worsening. Denies any otc treatment for symptoms. Review of Systems Constitutional: Negative for chills, fever and malaise/fatigue. HENT: Positive for congestion, sinus pain and sore throat. Negative for ear pain. Eyes: Positive for discharge and redness. Respiratory: Negative for cough. Gastrointestinal: Negative for abdominal pain, diarrhea, nausea and vomiting. Skin: Negative for rash. Neurological: Positive for headaches. PAST MEDICAL HISTORY Diagnosis Date - Hypertension PAST SURGICAL HISTORY Procedure Laterality Date - HERNIA REPAIR HX 2009 umbilical - TONSILLECTOMY HX 2013 ALLERGIES Patient has no known allergies. MEDICATIONS venlafaxine HCl (VENLAFAXINE ORAL) Take by mouth. lisinopril-hydrochl orothiazide (PRINZIDE,ZESTORETI C) 10-12.5 mg per tablet Take 1 tablet by mouth once daily. BABY ASPIRIN ORAL Take 81 mg by mouth once daily. amoxicillin (AMOXIL) 875 mg tablet Take 1 tablet by mouth twice daily for 10 days. buPROPion HCl, smoking deter, 150 mg TbER Take 150 mg by mouth twice daily. azelastine-fluticas one 137-50 mcg/spray spry Use in each nostril as needed. FAMILY HISTORY Problem Relation Age of Onset - Diabetes Father - Hypertension Father - Cancer Other renal Social History Substance Use Topics - Smoking status: Current Every Day Smoker Packs/day: 1.00 Years: 20.00 - Smokeless tobacco: Never Used - Alcohol use Yes Comment: occasional Objective Physical Exam Constitutional: He is well-developed, well-nourished, and in no distress. HENT: Head: Normocephalic. Right Ear: External ear and ear canal normal. Tympanic membrane is erythematous (purulent fluid behind TM). Left Ear: External ear and ear canal normal. Tympanic membrane is erythematous (purulent fluid behind TM). Nose: Mucosal edema present. Right sinus exhibits no maxillary sinus tenderness and no frontal sinus tenderness. Left sinus exhibits no maxillary sinus tenderness and no frontal sinus tenderness. Mouth/Throat: Posterior oropharyngeal edema and posterior oropharyngeal erythema (PND) present. Eyes: EOM are normal. Pupils are equal, round, and reactive to light. Right eye exhibits discharge. Left eye exhibits discharge. Right conjunctiva is injected. Left conjunctiva is injected. Neck: Normal range of motion. Neck supple. Cardiovascular: Normal rate, regular rhythm and normal heart sounds. Pulmonary/Chest: Effort normal and breath sounds normal. No respiratory distress. He has no wheezes. Abdominal: Soft. He exhibits no distension. There is no tenderness. Lymphadenopathy: He has cervical adenopathy. Skin: Skin is warm and dry. No rash noted. Nursing note and vitals reviewed. ASSESSMENT/PLAN: 1. Sore throat - ICD9: 462, ICD10: J02.9 (primary diagnosis) - Rapid Strep negative in the office today and Throat culture pending - Discussed supportive care treatment with fluids, rest and analgesia. - The patient may also use OTC decongestants prn, warm salt water gargles, throat lozenges and/or OTC throat spray as needed and nasal saline gtts and suction prn. - The patient should follow up in 3-5 days if symptoms persist or worsen - Call back if drooling, increased temperature, symptoms of dehydration and/or still sick in one week - GROUP A STREPTOCOCCUS BY PCR - RAPID STREP TEST B/O 2. Acute suppurative otitis media of both ears without spontaneous rupture of tympanic membranes, recurrence not specified - ICD9: 382.00, ICD10: H66.003 - Will begin treatment with Amoxicillin for 10 days - The patient should also be given OTC decongestants prn, warm salt water gargles, throat lozenges and/or OTC throat spray as needed and nasal saline gtts and suction prn for the first 5-7 days of treatment. - Supportive care with plenty of fluids, rest, and analgesia prn. - Follow up in 3-5 days if symptoms persist or worsen. Prescription instructions reviewed with patient as applicable. Patient advised if symptoms do not improve or if symptoms worsen sooner, to contact their primary care physician. Potential red flag symptoms discussed with the patient. Reviewed appropriate action plan to take if red flag symptoms occur. Patient agreeable to treatment plan. Armando Archer APRN.COMMUTATOR ASSEMBLER Normal [facility] Culture, urine Bacteria identified Cx Nom (U) Culture exhibits no growth. [facility] Work Phone: Vital Signs Date Time Vital Sign Value Performing Clinician Lionel morton 08-22-2022 15:09-0400 Body height 175.[address] Rivera Forbes Work Phone: [facility] 08-22-2022 15:09-0400 Body mass index (BMI) [Ratio] 43.5 kg/m2 Dr. Rivera Forbes Work Phone: [facility] 08-22-2022 15:09-0400 Body weight 133.[address] Rivera Forbes Work Phone: [facility] 12-04-2021 15:00-0400 Respiratory rate 18 /min Dr. Rivera Forbes Work Phone: [facility] Work Phone: 12-04-2021 11:57-0400 Body height 175.[address] Rivera Frobes Work Phone: [facility] Work Phone: 12-04-2021 11:57-0400 Body mass index (BMI) [Ratio] 40.6 kg/m2 Dr. Rivera Forbes Work Phone: [facility] Work Phone: 12-04-2021 11:57-0400 Body temperature 97.7 [degF] Dr. Rivera Forbes Work Phone: [facility] Work Phone: 12-04-2021 11:57-0400 Body weight 124.[address] Rivera Forbes Work Phone: [facility] Work Phone: 12-04-2021 11:57-0400 Diastolic blood pressure 76 mm[Hg] Dr. Rivera Forbes Work Phone: [facility] Work Phone: 12-04-2021 11:57-0400 Heart rate 66 /min Dr. Rivera Forbes Work Phone: [facility] Work Phone: 12-04-2021 11:57-0400 SaO2% (BldA) [Mass fraction] 100 % Dr. Rivera Forbes Work Phone: [facility] Work Phone: 12-04-2021 11:57-0400 Systolic blood pressure 146 mm[Hg] Dr. Rivera Forbes Work Phone: [facility] Work Phone: 12-03-2021 20:55-0400 Diastolic blood pressure 76 mm[Hg] Dr. Rivera Forbes Work Phone: [facility] Work Phone: 12-03-2021 20:55-0400 Heart rate 75 /min Dr. Rivera Forbes Work Phone: [facility] Work Phone: 12-03-2021 20:55-0400 Respiratory rate 15 /min Dr. Rivera Forbes Work Phone: [facility] Work Phone: 12-03-2021 20:55-0400 Systolic blood pressure 137 mm[Hg] Dr. Rivera Forbes Work Phone: [facility] Work Phone: 12-03-2021 19:11-0400 Body height 175.[address] Rivera Forbes Work Phone: [facility] Work Phone: 12-03-2021 19:11-0400 Body mass index (BMI) [Ratio] 41.8 kg/m2 Dr. Rivera Forbes Work Phone: [facility] Work Phone: 12-03-2021 19:11-0400 Body temperature 98 [degF] Dr. Rivera Forbes Work Phone: [facility] Work Phone: 12-03-2021 19:11-0400 Body weight 128.[address] Rivera Forbes Work Phone: [facility] Work Phone: 12-03-2021 19:11-0400 SaO2% (BldA) [Mass fraction] 97 % Dr. Rivera Forbes Work Phone: [facility] Work Phone: 10-29-2021 10:11-0400 Body temperature 97.7 [degF] Dr. Rivera Forbes Work Phone: [facility] Work Phone: 10-29-2021 10:11-0400 Diastolic blood pressure 84 mm[Hg] Dr. Rivera Forbes Work Phone: [facility] Work Phone: 10-29-2021 10:11-0400 Heart rate 92 /min Dr. Rivera Forbes Work Phone: [facility] Work Phone: 10-29-2021 10:11-0400 Respiratory rate 14 /min Dr. Rivera Forbes Work Phone: [facility] Work Phone: 10-29-2021 10:11-0400 SaO2% (BldA) [Mass fraction] 98 % Dr. Rivera Forbes Work Phone: [facility] Work Phone: 10-29-2021 10:11-0400 Systolic blood pressure 132 mm[Hg] Dr. Rivera Forbes Work Phone: [facility] Work Phone: Encounters Encounter Date Encounter Type Care Provider Facility Start: 10-29-2024 ambulatory [facility] Facility: [facility] Start: 09-30-2024 Encounter for genera l adult medical examination with [facility] Start: 09-23-2024 End: 09-23-2024 ambulatory [facility] Facility:[facility] Start: 04-07-2024 End: 04-07-2024 ambulatory [facility] Facility:[facility] Start: 07-18-2023 End: 07-18-[address] [facility] Work Phone: Start: 07-18-2023 End: 07-18-[address] [facility], [facility] Work Phone: Start: 06-20-2023 End: 06-20-[address] [facility] Work Phone: Start: 06-20-2023 End: 06-20-[address] [facility] Work Phone: Start: 05-18-2023 End: 05-18-[address] [facility] Work Phone: Start: 05-18-2023 End: 05-18-[address] [facility]Ul[facility]ound, [facility] Work Phone: Start: 12-29-2022 End: 12-29-[address] [facility] Work Phone: Start: 12-29-2022 End: 12-29-[address] [facility] Work Phone: Start: 10-26-2022 End: 10-26-[address] Rivera Forbes Work Phone: [facility] Work Phone: Start: 10-26-2022 End: 10-26-[address] Rivera Forbes Work Phone: [facility] Start: 08-22-2022 Non-patient / Non-visit Dr. Yolie Forbes Work Phone: [facility] Work Phone: Start: 06-30-2022 End: 06-30-[address] [facility] Work Phone: Start: 06-30-2022 End: 06-30-2022 [facility] Start: 12-27-2021 End: 12-27-[address] Rivera Forbes Work Phone: [facility] Work Phone: Start: 12-27-2021 End: 12-27-[address] Rivera Forbes Work Phone: [facility] Start: 12-04-2021 End: 12-04-2021 Emergency department patient visit Dr. Rivera Forbes Work Phone: [facility] Start: 12-03-2021 End: 12-03-2021 Emergency department patient [facility] Start: 10-29-2021 End: 10-29-[address] Rivera Forbes Work Phone: [facility] Start: 10-19-2021 End: 10-19-2021 [facility] Start: 12-09-2019 End: 12-09-2019 Patient encounter procedure [facility] Procedures Date Procedure Procedure Detail Performing Clinician Start: 07-18-2023 CT of soft tissues o f neck with contrast Start: 05-18-2023 Ultrasonography of t hyroid and parathyroid Start: 12-03-2021 CT of abdomen and pe lvis without contrast Dr. Rivera Forbes Work Phone: Urine culture Urine culture Plan of Treatment Date Care Activity Detail Author Colonoscopy [facility] Patient Education ED Kidney Stone w/ Coli c [facility] Work Phone: Patient referral [facility] Work Phone: Immunizations Immunization Date Immunization Notes Care Provider Sonny campos 11-30-2017 Influenza virus vaccine [facility] 05-04-2013 tetanus toxoid, redu ky diphtheria toxoid, and acellular pertussis vaccine, adsorbed [facility] Payers Date Payer Category Payer Self-pay [id number] 2024 Unknown [id number] 2016 Unknown [id number] Unknown [id number] Unknown [id number] Unknown [id number] Social History Date Type Detail Facility Start: 04-28-2021 End: 08-22-2022 Tobacco smoking status NHIS Unknown if ever smoked [facility] Start: 12-02-2018 None [facility] Start: 12-02-2018 Spouse/ Signif icant Other [facility] Start: 1970 Sex Assigned At Male [facility] Medical Equipment Procedure Code Equipment Code Equipment Origin al Text Equipment Identifier Dates Excision, mass PHILIP 3GRM HEMO STAT ABS FDA Start: 04-14-2019 Excision, mass PHILIP 3GRM HEMO STAT ABS FDA Start: 04-14-2019 Excision, mass PHILIP 3GRM HEMO STAT ABS FDA Start: 04-14-2019 Excision, mass PHILIP 3GRM HEMO STAT ABS FDA Start: 04-14-2019 Excision, mass PHILIP 3GRM HEMO STAT ABS FDA Start: 04-14-2019 Excision, mass PHILIP 3GRM HEMO STAT ABS FDA Start: 04-14-2019 Excision, mass PHILIP 3GRM HEMO STAT ABS FDA Start: 04-14-2019 Excision, mass PHILIP 3GRM HEMO STAT ABS FDA Start: 04-14-2019 Excision, mass PHILIP 3GRM HEMO STAT ABS FDA Start: 04-14-2019 Excision, mass PHILIP 3GRM HEMO STAT ABS FDA Start: 04-14-2019 Evaluation note Note Date & Type Note Facility Evaluation note No assessment information availa ble [facility] Work Phone: Evaluation note Note Date & Type Note Facility Evaluation note Diagnosis Onset Date Fungal infection of the groin acute [facility] Work Phone: Summary Purpose Family History No Family History Records Found Relationship Condition Age at Onset Recorded Date/T derekc Not Specified Cardiac disease Unknown Malignant neoplasm Unknown grandmother Malignant neoplasm of breast Unknown father Diabetes mellitus Unknown Kidney disorder Unknown uncle Kidney disorder Unknown grandfather Cerebrovascular accident (CVA) Unknown Advance Directives No Advanced Directives Records Found Advance Directive Response Recorded Date/ Time Living Will No April 28 022 2:33pm Power of Elementary Secretary No April 28, 2021 2:33pm Advance Directive Response Recorded Date/ Time Living Will No December 03, 2021 7:18pm Power of Elementary Secretary No November 7:18pm Advance Directive Response Recorded Date/ Time Living Will No December 04, 2021 12:38pm Power of Elementary Secretary No November 12:38pm Advance Directive Response Recorded Date/ Time Living Will No December 04, 2021 11:38am Power of Elementary Secretary No November 11:38am Chief Complaint and Reason for Visit Chief Complaint RASH ON LEG flank pain Reason for Visit Fungal infection of the groin Chief Complaint RASH ON LEG flank pain FLANK PAIN Reason for Visit Fungal infection of the groin Chief Complaint RASH ON LEG flank pain FLANK PAIN PSA Reason for Visit Fungal infection of the groin Chief Complaint Amb Documentation Chief Complaint R22.1 Localized swel ling, mass and lump, neck Chief Complaint R22.1 Localized swel ling, mass and lump, neck RT MID-NECK MASS Additional Source Comments (unrecognized sect ion and content) No Status Records FoundNo Status Records FoundNo Status Records FoundNo Status Records Found INFORMATION SOURCE (unrecogn ized section and content) DATE CREATED AUTHOR 09/03/2018 [facility] DATE CREATED AUTHOR AUTHOR'S ORGANIZ ATION 01/14/2020 [facility] DATE CREATED AUTHOR AUTHOR'S ORGANIZ ATION 01/30/2020 [facility] DATE CREATED AUTHOR AUTHOR'S ORGANIZ ATION 10/26/2024 [facility] Goals (unrecognized section and content) Goals may be documented in a n alternate sectionGoals may be documented in an alternate sectionGoals may be documented in an alternate sectionGoals may be documented in an alternate sectionGoals may be documented in an alternate sectionGoals may be documented in an alternate sectionGoals may be documented in an alternate sectionGoals may be documented in an alternate sectionGoals may be documented in an alternate sectionGoals may be documented in an alternate section Care Teams (unrecognized sec tion and content) Team Status: Active Member Role Status Dates Dr. Rivera Forbes DO Family Provider Active Dr. Rivera Forbes DO Primary Care Provider Active Team Status: Inactive Member Role Status Dates Dr. Rivera Forbes DO Primary Care Provider, Attendin g Provider Active Team Status: Active Member Role Status Dates Dr. Rivera Forbes DO Primary Care Provider Active Sharon Barron Attending Provider Active Team Status: Inactive Member Role Status Dates Dr. Rivera Forbes DO Primary Care Prov ider, Attending Provider, Referring Provider Active Team Status: Inactive Member Role Status Dates Dr. Rivera Forbes DO Primary Care Provider Active Dr. Gregg Alcantar MD Attending Provider, Referring Prov ider Active Team Status: Inactive Member Role Status Dates Dr. Rivera Forbes DO Primary Care Provider Active Dr. Jose Carlos Mendes MD Attending Provider, Referring P ricci Active FOR RECORDS PERTAINING TO PATIENTS WHO ARE [...] BE BASED ON THE PRIMARY CLINICAL RECORDS. [facility] [employer] [facility]. provides no warranty or guarantee of the accuracy or completeness of information in this document.
--- NOTE | 2025-03-09 06:10 | CT_ITS ---
PROCEDURE: ABDOMEN/PELVIS WITHOUT CONT 03/09/2025 REASON FOR EXAM: VENTRAL HERNIA TECHNIQUE: Procedure Code: CTABDPEL Modality: CT Procedure: ABDOMEN/PELVIS WITHOUT CONT Noncontrast technique limits evaluation of the abdominal and pelvic viscera. Coronal and Sagittal reconstruction series were provided. One or more dose reduction techniques were used (e.g., Automated exposure control, adjustment of the mA and/or kV according to patient size, use of iterative reconstruction technique). RADIATION DOSE SUMMARY: CTDlvol: 23.46 mGy DLP: 1307.13 mGycm COMPARISON: No relevant prior FINDINGS: Lung bases: No abnormalities. Liver: Normal-size and attenuation. No masses. No biliary ductal dilatation. Gallbladder: No gallstones. No wall thickening or pericholecystic edema. Spleen: Normal in size and attenuation.. Pancreas: No masses or ductal dilatation. Adrenals: Mild left adrenal gland thickening Kidneys: Small calculus in the midpole, left kidney. Kidneys are normal in size. A 4.6 cm cyst, right lower pole. Bladder: Unremarkable. Reproductive Organs: Prostate gland calcifications. Bowel: Diverticulosis scattered throughout the colon Appendix: Unremarkable. Lymph nodes: No suspicious lymphadenopathy. Vasculature: Unremarkable. Peritoneum / Retroperitoneum: No masses, free air, or free fluid. Anterior abdominal wall: Prominent midline fat containing ventral hernia Bones: Multilevel spondylosis. Degenerative disc disease at L5-S1 CT/Abdomen/Pelvis without Cont IMPRESSION: 1. Mild left adrenal gland thickening. 2. Nonobstructing left nephrolithiasis. 3. Right renal cyst. 4. Diverticulosis. 5. Chronic prostatitis. 6. Midline fat containing ventral hernia. 7. Other nonacute findings detailed above. Reading Location: [place] [id number]
== END | disposition home or self-care (01) ==
LOC: CT 06:07
PROVIDERS: PCP Family Medicine; Referring Provider Surgery; Visit Provider Surgery
DX: K43.9 Ventral hernia without obstruction or gangrene (principal)
CPT/HCPCS: 74176